=== PATIENT | male | born 1970 | race Caucasian/White ===

== ENCOUNTER 2020-01-17 11:20 | Inpatient (IN) | payer MEDICAID ==
[~2020-01-17] VITALS: Ht 172.7 cm; Wt 111.7 kg
[2020-01-17 13:00] VITALS: BP 124/85
[2020-01-17] MEDS ORDERED: loperamide 2mg capsule PO PRN (13:05)
[2020-01-17] MEDS ORDERED: magnesium hydroxide 30ml (MOM) UD suspension PO PRN (13:05)
--- NOTE | 2020-01-17 14:21 | NUR ---
TF Malnutrition Consults RE "Pt needs a balance diet": ROLA d/w RN who reports likely error. ROLA notified RN that current regular diet order is a balanced diet. Noted pt has multiple food allergies and dietary is aware at this time. Unable to assess malnutrition status at this time as pt just admit and not enough information in EMR. Addendum: 01/17/20 at [address] Amended: Links added.
[2020-01-17] MEDS: OLANZAPINE 5 MG TABLET PO PRN (15:03)
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
[2020-01-17] MEDS ORDERED: NICOTINE POLACRILEX 2 MG LOZENGE BC PRN (15:55)
[2020-01-17] MEDS ORDERED: haloperidol lactate 5mg/ml inj ONE (16:17)
[2020-01-17] MEDS ORDERED: diphenhydrAMINE 50 mg/ml inj ONE (16:18)
[2020-01-17] MEDS ORDERED: LORazepam 2 mg/ml vial ONE (16:19)
--- NOTE | 2020-01-17 16:20 | NUR ---
Geriatrics Physician was called into room because pt was agitated rocking back and forth hitting his head with his hands. Pt was growling. Pt wasn't able to be verbally deescalated. Security was called to assist in keeping pt safe. Received and order from LADARIUS Ramirez for IM Ativan 2mg, Benadryl 50mg and Haldol 10mg. Geriatrics Physician was told by Manj[facility] that pt was saying he "didn't want to live anymore." Will continue to monitor. Vital sign and 1:1 assessment were completed. Will continue to monitor.
[2020-01-17 16:30] VITALS: BP 112/70
--- NOTE | 2020-01-17 17:19 | NUR ---
Requested respiratory consult r/t pt sleeping O2 saturation 89-91. Pt has hx of COPD, asthma, emphysema. Respiratory called and spoke with Brie. states saturation is WNL for pt's med history. Will continue to monitor.
[2020-01-17] MEDS ORDERED: HYDR50TA3 PO (17:28)
[2020-01-17] MEDS ORDERED: UMEC1DIS INH (17:28)
[2020-01-17] MEDS ORDERED: FLO0.4C PO (17:28)
[2020-01-17] MEDS ORDERED: POTA8TAB3 PO (17:28)
[2020-01-17] MEDS ORDERED: DIVA500T4 PO (17:28)
[2020-01-17] MEDS ORDERED: DOXY-1 PO (17:28)
[2020-01-17] MEDS ORDERED: HYDR28.316 TOP (17:28)
[2020-01-17] MEDS ORDERED: LEVE750T6 PO (17:28)
[2020-01-17] MEDS ORDERED: PANT-47 PO (17:28)
[2020-01-17] MEDS ORDERED: ALB0.5UD IH (17:28)
[2020-01-17] MEDS ORDERED: ADV50100 IH (17:28)
[2020-01-17] MEDS ORDERED: CARB200T39 PO (17:28)
[2020-01-17] MEDS ORDERED: LORA10CA PO (17:28)
[2020-01-17] MEDS ORDERED: HYDROCORTISONE 28.35 GM CREAM.GM. RC PRN (17:40)
[2020-01-17 19:27] VITALS: BP 103/67
[2020-01-17] MEDS ORDERED: divalproex sodium 500mg tablet.DR PO SCH (20:00)
[2020-01-17] MEDS: albuterol 2.5 MG/3 ML nebule NEB SCH (20:42)
[2020-01-17] MEDS: budesonide 0.5mg/2ml UD nebule IH SCH (20:42)
[2020-01-17] MEDS: potassium chloride 8mEq ER tablet PO SCH (20:47)
[2020-01-17] MEDS: levetiracetam 250mg tablet PO SCH (20:47)
[2020-01-17] MEDS: DOXYCYCLINE 100MG CAPSULE PO SCH (20:47)
[2020-01-17] MEDS ORDERED: ipratropium/albuterol 3ml nebule IH SCH (21:00)
[2020-01-17] MEDS ORDERED: albuterol 2.5 MG/3 ML nebule NEB SCH (21:00)
[2020-01-17] MEDS: divalproex sodium 500mg tablet.DR PO SCH (21:12)
[2020-01-17] MEDS: pantoprazole 40mg Tablet.DR PO SCH (21:12)
[2020-01-17] MEDS: carBAMazepine 100mg chewable tablet PO SCH (21:16)
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
[2020-01-18] MEDS ORDERED: ipratropium 0.5 MG/2.5ML nebule NEB SCH (08:00)
[2020-01-18] MEDS: budesonide 0.5mg/2ml UD nebule IH SCH ×2 (08:00→19:54)
[2020-01-18 08:15] VITALS: BP 102/75
[2020-01-18] MEDS: ipratropium/albuterol 3ml nebule IH SCH ×3 (09:00→19:55)
[2020-01-18] MEDS: albuterol 2.5 MG/3 ML nebule NEB SCH ×3 (09:00→21:00)
[2020-01-18] MEDS: divalproex sodium 500mg tablet.DR PO SCH (09:07)
[2020-01-18] MEDS: DOXYCYCLINE 100MG CAPSULE PO SCH ×2 (09:07→21:04)
[2020-01-18] MEDS: HYDROchlorothiazide 25mg tablet PO SCH (09:08)
[2020-01-18] MEDS: levetiracetam 250mg tablet PO SCH ×2 (09:08→21:04)
[2020-01-18] MEDS: tamsulosin 0.4mg capsule PO SCH (09:08)
[2020-01-18] MEDS: potassium chloride 8mEq ER tablet PO SCH ×2 (09:08→21:04)
[2020-01-18] MEDS: loratadine 10mg tablet PO SCH (09:08)
[2020-01-18] MEDS: carBAMazepine 100mg chewable tablet PO SCH ×4 (09:14→21:05)
[2020-01-18] MEDS ORDERED: FLU VACC QS2020-21(6MOS UP)/PF 60 MCG/0.5 ML SYRINGE IMVAC ONE (10:00)
[2020-01-18] MEDS ORDERED: LORazepam 2 mg/ml vial ONE (13:20)
[2020-01-18] MEDS ORDERED: haloperidol lactate 5mg/ml inj ONE (13:21)
[2020-01-18] MEDS ORDERED: diphenhydrAMINE 50 mg/ml inj ONE (13:21)
--- NOTE | 2020-01-18 13:30 | NUR ---
NURSING NOTE: Triage Specialist went to administer 1300 medication to patient. Pt was calm c/o of "stomach upset." Retrieved Maalox with medication. On way back in pt came out of his bedroom with wide eyes and was crying, noted clenched fists. Patient terry walked towards the south end exit and attempted to open door. This law writer attempted to redirect him back to his room and reassured pt he was safe. This was not effective. Security was on floor and help assist patienr back to his room. Patient sat on his bed rocking, growling. Patient required administration of emergency medication for the safety of himself and others. The following IM medication were administered Haldol 10mg/Ativan 2mg/Benadryl 50mg.
[2020-01-18] MEDS ORDERED: polyethylene glycol 3350 17gm powd pack PO ONE (13:40)
[2020-01-18 13:50] VITALS: BP 108/73
--- NOTE | 2020-01-18 14:00 | NUR ---
Malnutrition consult: Pt unsure of wt loss though with decreased appetite per malnutrition risk screen with RN. No documented wt hx, current scaled weight is 149% IBW. Pt on a regular diet documented with 25% PO intake first meal with refusal of dinner though did participate in HS snack per RN notes. PO intake up to 100% at breakfast this morning. Pt with no documented decrease in muscle strength or edema. Pt currently lacks a minimum of two criteria for malnutrition. Will continue to follow. Addendum: 01/18/20 at [address] Amended: Links added.
[2020-01-18 14:05] VITALS: BP 110/56
[2020-01-18 14:55] VITALS: BP 102/71
--- NOTE | 2020-01-18 17:05 | NUR ---
Paged respiratory for breathing treatment.
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
--- NOTE | 2020-01-18 19:56 | NUR ---
Patient sleeping after medication administration. Respiratory treatments held at request of RN.
[2020-01-18 20:00] VITALS: BP 87/59
[2020-01-18] MEDS: pantoprazole 40mg Tablet.DR PO SCH (21:04)
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
[2020-01-19 07:26] LABS: CHOL/HDL RATIO 4.5 (0.00-4.99); CHOLESTEROL 175 MG/DL (0-200); HDL CHOLESTEROL 39 MG/DL (35-60); LDL CHOLESTEROL 119 MG/DL (50-100); TRIGLYCERIDES 125 MG/DL (20-135)
[2020-01-19 07:33] VITALS: BP 96/69
[2020-01-19] MEDS: ipratropium/albuterol 3ml nebule IH SCH ×3 (08:25→19:54)
[2020-01-19] MEDS: budesonide 0.5mg/2ml UD nebule IH SCH ×2 (08:25→19:54)
[2020-01-19] MEDS: potassium chloride 8mEq ER tablet PO SCH ×2 (08:50→20:05)
[2020-01-19] MEDS: levetiracetam 250mg tablet PO SCH ×2 (08:50→20:05)
[2020-01-19] MEDS: divalproex sodium 500mg tablet.DR PO SCH ×2 (08:50→20:05)
[2020-01-19] MEDS: DOXYCYCLINE 100MG CAPSULE PO SCH ×2 (08:51→20:05)
[2020-01-19] MEDS: tamsulosin 0.4mg capsule PO SCH (08:51)
[2020-01-19] MEDS: loratadine 10mg tablet PO SCH (08:51)
[2020-01-19] MEDS: carBAMazepine 100mg chewable tablet PO SCH ×4 (08:51→20:05)
[2020-01-19] MEDS: HYDROchlorothiazide 25mg tablet PO SCH (08:52)
[2020-01-19] MEDS: albuterol 2.5 MG/3 ML nebule NEB SCH (09:00)
[2020-01-19] MEDS ORDERED: docusate sod 100mg capsule PO SCH (10:45)
[2020-01-19] MEDS ORDERED: magnesium citrate 296ml oral solution PO ONE (10:45)
[2020-01-19] MEDS: OLANZAPINE 5 MG TABLET PO PRN (11:43)
[2020-01-19] MEDS: LORazepam 1 MG tablet PO PRN ×2 (11:43→20:26)
--- NOTE | 2020-01-19 12:24 | NUR ---
Paged respiratory for PRN breathing treatment. Symptoms: wheezy throughout, SOB with exertion. No distress.
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
--- NOTE | 2020-01-19 15:55 | NUR ---
Patient came out of his room, not as intense, with a blank look in his eyes, heading towards south exit. Again looks like he disassociates from present. Machine Stamper called his name and asked if he was looking for a bag of chips. Pt stated yes and went back to his room when asked. Pt immediately laid down on his bed and closed his eyes. There were no outbursts, yelling or crying during this episode. Addendum: 01/19/20 at 1652 by Terra Gardner RN Patient has childlike characteristics at times.
[2020-01-19] MEDS: albuterol 2.5 MG/3 ML nebule NEB PRN (16:29)
[2020-01-19] MEDS: hydrOXYzine 25 MG tablet PO PRN (17:15)
[2020-01-19 19:23] VITALS: BP 108/65
[2020-01-19] MEDS: pantoprazole 40mg Tablet.DR PO SCH (20:05)
[2020-01-19] MEDS: traZODone 50mg tablet PO PRN (20:26)
--- NOTE | 2020-01-19 23:26 | NUR ---
PCT was responding to pt's call light and found patient on the floor in front of his door. Patient A/O to own ability. VSS; 104/58, 107, 16, 92% RA and denies pain. Patient walked back to bed with staff assistance. Patient reports he had a seizure and fell out of bed. LADARIUS Galeas notified. No N/O at this time.
[2020-01-19 23:34] VITALS: BP 104/58
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
[2020-01-20] MEDS: acetaminophen 325mg tablet PO PRN ×3 (05:37→16:44)
[2020-01-20 07:35] VITALS: BP 105/70
[2020-01-20] MEDS: budesonide 0.5mg/2ml UD nebule IH SCH ×2 (08:21→20:15)
[2020-01-20] MEDS: ipratropium/albuterol 3ml nebule IH SCH ×3 (08:22→20:16)
[2020-01-20 08:30] VITALS: BP 120/70
--- NOTE | 2020-01-20 08:30 | NUR ---
Nursing Note: Pt. has had two seizures that lasted close to one-minute in length each this AM. First seizure was in the Group Room immediately following breakfast. Afterwards pt. was able to independently walk back to his room closely monitored by staff, where he proceeded to lay down in bed and have another seizure. It was reported by Noc shift that pt. had, had a seizure last night as well and fell out of bed. Pt. post-ictal at this time and fatigued, but A&O and V/S are WNL. He denies experiencing any aura leading up to his seizures and does not remember seizures, however pt. was noted by staff to start moving his feet and becoming tense leading up to each seizure. After each seizure, pt. became very fatigued and slept. Pt. is on 3 seizure medications, and has vagal nerve stimulator, Dr. Xiong notified and ordered Valproic Acid, Carbamazepine, and Levetiracetam lab levels, along with a CBC, CMP, magnesium, and phosphate level. Once lab levels obtained, obtain a Telepsych Neuro consult for seizure management. At approximately 0930, following lab draws, pt. was difficult to awake for his AM medications and again appeared to be post-ictal. LADARIUS Ayers notified and Ativan was ordered to be given PO scheduled Q 4 hours, first dose given at this time. Pt. was also placed on a LOS for seizure precautions. Will continue to monitor.
[2020-01-20 09:13] LABS: BASOPHILS % (AUTO) 0.4 % (0-1); EOSINOPHILS # (AUTO) 0.2 X10'3 (0-0.9); EOSINOPHILS % (AUTO) 2.8 % (0-6); HEMATOCRIT 41.6 % (42.0-52.0); HEMOGLOBIN 14.4 g/dl (14.0-17.9); LYMPHOCYTES # (AUTO) 1.9 X10'3 (1.1-4.8); LYMPHOCYTES % (AUTO) 34.4 % (21-51); MEAN CORPUSCULAR HEMOGLOBIN 33.1 PG (27.0-31.0); MEAN CORPUSCULAR HGB CONC 34.5 g/dL (33.0-36.5); MEAN CORPUSCULAR VOLUME 95.8 FL (78-98); MEAN PLATELET VOLUME 7.9 FL (7.4-10.4); MONOCYTES # (AUTO) 0.7 X10'3 (0-0.9); MONOCYTES % (AUTO) 11.8 % (2-12); NEUTROPHILS # (AUTO) 2.8 X10'3 (1.8-7.7); NEUTROPHILS % (AUTO) 50.6 % (42-75); PLATELET COUNT 238 X10'3 (140-440); RED BLOOD COUNT 4.34 X10'6 (4.70-6.10); RED CELL DISTRIBUTION WIDTH 13.6 % (11.5-14.5); WHITE BLOOD COUNT 5.5 X10'3 (4.5-11.0)
[2020-01-20] MEDS: DOXYCYCLINE 100MG CAPSULE PO SCH ×2 (09:26→20:28)
[2020-01-20] MEDS: tamsulosin 0.4mg capsule PO SCH (09:26)
[2020-01-20] MEDS: HYDROchlorothiazide 25mg tablet PO SCH (09:26)
[2020-01-20] MEDS: loratadine 10mg tablet PO SCH (09:26)
[2020-01-20] MEDS: potassium chloride 8mEq ER tablet PO SCH ×2 (09:26→20:28)
[2020-01-20] MEDS: divalproex sodium 500mg tablet.DR PO SCH ×2 (09:26→20:30)
[2020-01-20] MEDS: LORazepam 1 MG tablet PO PRN (09:27)
[2020-01-20] MEDS: levetiracetam 250mg tablet PO SCH ×2 (09:27→19:14)
[2020-01-20] MEDS: carBAMazepine 100mg chewable tablet PO SCH ×4 (09:27→20:27)
[2020-01-20 09:29] LABS: ALANINE AMINOTRANSFERASE 26 U/L (12-78); ALBUMIN 3.2 G/DL (3.4-5.0); ALBUMIN/GLOBULIN RATIO 0.9 (1.1-1.5); ALKALINE PHOSPHATASE 130 IU/L (46-116); ANION GAP 5 (8-16); ASPARTATE AMINO TRANSFERASE 11 U/L (10-37); BILIRUBIN,TOTAL 0.2 MG/DL (0.1-1.0); BLOOD UREA NITROGEN 13 MG/DL (7-18); BUN/CREATININE RATIO 14.6 (5.4-32.0); CALCIUM 9.2 MG/DL (8.5-10.1); CHLORIDE 102 MMOL/L (99-107); CREATININE 0.89 MG/DL (0.60-1.10); GLUCOSE 129 MG/DL (70-104); MAGNESIUM 2.2 MG/DL (1.5-2.4); PHOSPHORUS 3.8 MG/DL (2.3-4.5); SODIUM 140 MMOL/L (135-145); TOTAL CARBON DIOXIDE 32.8 MMOL/L (24-32); TOTAL PROTEIN 6.9 G/DL (6.4-8.2); eGFR > 90 ML/MIN
[2020-01-20 10:15] LABS: CARBAMAZEPINE (TEGRETOL) 9.4 UG/ML (4.0-12.0); VALPROATE 60 UG/ML (50-100)
[2020-01-20] MEDS: LORazepam 1 MG tablet PO SCH ×4 (11:33→23:31)
[2020-01-20] MEDS ORDERED: levetiracetam 250mg tablet PO ONE ×2 (14:35→15:05)
[2020-01-20] MEDS ORDERED: divalproex sodium 500mg tablet.DR PO ONE (14:40)
--- NOTE | 2020-01-20 14:40 | NUR ---
Pt. had a subsequent seizure which again lasted approximately one minute.V/S remain WNL. LADARIUS Ayers notified and obtained orders to administer Keppra 750mg and Depakote 500mg. Valproic acid and carbamazepine levels WNL, Levetiracetam level pending. Will continue to monitor. Addendum: 01/20/20 at 1622 by Arleth Renae RN 250mg of Keppra dropped by patient, additional 250mg one-time order put in.
--- NOTE | 2020-01-20 18:00 | NUR ---
Nursing Progress Note: Legal hold: 5250 Client on involuntary status for GD Report received from nurse with use of SBAR: Ana Lilia Williamson RN Why are they here: Patient is a 49 year old male admitted on a 5150 hold for DTS after voluntarily taking himself to [facility] ED for SI. Patient stated he attempted to kill himself 2 times that morning ( 01/16/20[place] Pt was evaluated by [facility]. Pt stated "he did not jump, but instead he fell to his knees and prayed to his parents." Pt reported his mother on "a long time ago." . Pt also reported his father and he has not dealt with his grief. Pt reported "not feeling comfortable going home because his neighbor bugged his telephone and put cameras on his vents." Pt reported he stopped taking his medications. During MH assessment patient wrapped his bed sheet around his neck in an attempt to choke himself. Assessment What has happened this shift: Received pt. sleeping in bed at the beginning of the shift, he was awoken by staff and attended breakfast in the Group Room. This medical writer introduced self and pt. presented with animation and provided an appropriate greeting. He ate breakfast and then proceeded to have first seizure (see previous note). 1:1 completed at bedside, pt. presents with restlessness, impulsiveness, and is slightly agitated. He denies all MH s/s and states irritably, "I'm tired of all these questions!" Pt's mood continued to be labile throughout the day and he continued to have more seizures, LADARIUS Ayers aware. Pt. was put on LOS for seizure precautions, and was later able to compete some arts and crafts in Group Room although his mood remained labile. Pt. did exhibit some self-harm behavior AEB hitting head on his night stand at one point, however he was able to be redirected by staff and no injuries obtained. Pt. napped intermittently throughout the shift. S/I, H/I: Denies A/VH: Denies Sleep: Pt. reported he slept well, naps intermittently during the shift ADL's: On LOS for seizure precautions Group attendance: no Were meds taken: Yes Any med S/E: Multiple seizures this shift, LADARIUS Ayers is aware Mental Status Exam Appearance: Neat and appropriately dressed Eye contact: Fair Behavior: Cooperative, anxious, slightly agitated, fatigued, guarded, and impulsive Speech: WNL, becomes loud when agitated Mood: Anxious with slight agitation Affect: Labile Thought process: Poverty of thought Thought Content: WNL Cognition: A&O X4 Insight: Poor Judgment: Poor Interventions PRN's used: Tylenol X2 Therapeutic interventions: Introduced self and established rapport, ensured contract for safety, maintained a safe and therapeutic environment, provided clear and simple instructions, , encouraged performance of ADLs/participation on unit, monitored for behavior/seizures and provided intervention as needed (notified MD), and maintained LOS for seizure precautions. Restraints/seclusion/emergency medication: N/A Justification of Continued Inpatient Treatment: Pt. requires interruption of current crisis, medication adjustments and a safe and supportive environment. Addendum: 01/21/20 at 1429 by Arleth Renae RN Legal hold is Voluntary
[2020-01-20] MEDS: OLANZAPINE 5 MG TABLET PO PRN ×2 (18:37→20:28)
[2020-01-20 19:57] VITALS: BP 111/65
[2020-01-20] MEDS: pantoprazole 40mg Tablet.DR PO SCH (20:28)
[2020-01-20] MEDS: olanzapine 10mg tablet PO SCH (21:05)
[2020-01-21] MEDS: LORazepam 1 MG tablet PO SCH ×5 (04:36→20:21)
--- NOTE | 2020-01-21 04:44 | NUR ---
Nursing Progress Note: Legal hold: 5250 Client on involuntary status for DTS. Report received from nurse with use of SBAR: NICOLE Baird. Why are they here: Patient is a 49 year old male admitted on a 5150 hold for DTS after voluntarily taking himself to [facility] ED for SI. Patient stated he attempted to kill himself 2 times that morning ( 01/16/20) [place] Pt was evaluated by [facility]. Pt stated "he did not jump, but instead he fell to his knees and prayed to his parents." Pt reported his mother on "a long time ago." . Pt also reported his father and he has not dealt with his grief. Pt reported "not feeling comfortable going home because his neighbor bugged his telephone and put cameras on his vents." Pt reported he stopped taking his medications. During assessment patient wrapped his bed sheet around his neck in an attempt to choke himself. Medical history includes seizure d/o, HTN, Asthma, kidney stones. Surgical hx, appendectomy, vagal nerve stimulator implant. Pt reports sleep apnea. Assessment What has happened this shift: Patient awake and ambulating the unit at the beginning of shift. Patient appeared agitated with LOS staff as he did not want followed. Patient was provided PRN Zyprexa for his agitation. Shortly after shift change patient reported he felt a seizure coming on and quickly needed assistance to the ground. Post seizure patient was assisted to his bed and provided his Keppra and Depakote. Patient has not had further episodes at this time. Later in the shift patient ambulating and watching TV; he participated in HS snack. Patient often becomes tearful and then angry with himself and requires staff direction to not hit himself. Patient continues Ativan q4h. He is cooperative with medications but reports he feels like he is taking too many and that staff is trying to "drug him up." He is observed sleeping and does not appear to be having difficulty. S/I, H/I: Denies A/VH: Denies Sleep: Refer to sleep assessment ADL's: Independent Group attendance: NA Were meds taken: Yes Any med S/E; None observed or reported Mental Status Exam Appearance: Neat and appropriate. Eye contact: Fair Behavior: Isolative, pleasant and cooperative Speech: Clear, audible, minimal Mood: Labile Affect: Congruent to mood Thought process: Disorganized Thought Content: Doesn't want followed, wants off the unit, feels like he is taking too many medications Cognition: A/Ox4 Insight: Fair Judgment: Poor Interventions PRN's used: Zyprexa Therapeutic interventions: Maintained a safe and therapeutic milieu, assessed patient' LOC, pt wanted to sleep. Encouraged fluids and participation in unit. Restraints/seclusion/emergency medication: NA Justification of Continued Inpatient Treatment: Patient needs interruption of current crisis and medication initiation and adjustment in a safe and therapeutic milieu.
[2020-01-21] MEDS: carBAMazepine 100mg chewable tablet PO SCH ×4 (07:36→20:21)
[2020-01-21] MEDS: potassium chloride 8mEq ER tablet PO SCH ×2 (07:37→20:21)
[2020-01-21] MEDS: levetiracetam 250mg tablet PO SCH ×2 (07:37→20:20)
[2020-01-21] MEDS: tamsulosin 0.4mg capsule PO SCH (07:37)
[2020-01-21] MEDS: divalproex sodium 500mg tablet.DR PO SCH ×2 (07:37→20:20)
[2020-01-21] MEDS: loratadine 10mg tablet PO SCH (07:37)
[2020-01-21] MEDS: DOXYCYCLINE 100MG CAPSULE PO SCH ×2 (07:38→20:20)
[2020-01-21 07:48] VITALS: BP 90/72
[2020-01-21] MEDS: HYDROchlorothiazide 25mg tablet PO SCH (08:00)
[2020-01-21] MEDS: budesonide 0.5mg/2ml UD nebule IH SCH ×2 (08:03→20:49)
[2020-01-21] MEDS: ipratropium/albuterol 3ml nebule IH SCH ×3 (08:04→20:49)
--- NOTE | 2020-01-21 10:00 | NUR ---
Group Therapy: Process Group This Clinicians goals for this process group were as follows: (1) Ask scaling questions about patients current anxiety, depression, and irritability symptoms as a check-in. (2) Share psychoeducation about three rules of brief solution-focused problem-solving: A) Stop doing what clearly isnt working, B) Do something different, C) If the different activity works, then do more of it. If it doesnt work, then go back to principle A). (3) Identify examples of thoughts, activities, and behaviors that people do that no longer work for them, or they create more problems than solutions. (4) Identify examples of thoughts, activities, and behaviors that may help create better emotional/behavioral outcomes and lead to good solutions to problems. (5) Engage patients in discussion of the topics shared within the group milieu. Milieu staff was present during the process group to monitor Patient behaviors. Patient presented as properly oriented to person, and place during the process group. He arrived to the process group approximately 35 minutes after the process group began and left after approximately 10 minutes. This Clinician introduced himself to Patient as he entered the group milieu. He was shadowed by milieu staff. Patient was dressed in nondescript, personal clothing that were appropriate within the milieu. Psychomotor activity was unremarkable. This Clinician was not able to accurately assess Patient's thought content, or process as he only stated his name to this Clinician during the process group. This Clinician did not observe Patient responding to any internal stimuli during session. The rate, latency, and tone of Patients speech was within normal limits. Patient did not sustain regular eye contact with this Clinician. Patient presented in calm euthymic mood, with blunted affect during the process group. Patient presented as cooperative, verbally subdued and nonobtrusive during his brief time within the group milieu. He did not verbally participate during the process group discussion on brief solution-focused, problem-solving thinking strategies. Sridhar Arechiga MA, BROOKE Addendum: 11/30/20 at 1149 by Sridhar STALLINGS Amended: Links added.
[2020-01-21] MEDS: OLANZAPINE 5 MG TABLET PO PRN (10:59)
--- NOTE | 2020-01-21 16:44 | NUR ---
Nursing Progress Note: Legal hold: 5250 Client on involuntary status for GD Report received from nurse with use of SBAR: NICOLE Taylor Why are they here: Patient is a 49 year old male admitted on a 5150 hold for DTS after voluntarily taking himself to [facility] ED for SI. Patient stated he attempted to kill himself 2 times that morning ( 01/16/20) [place]. Pt was evaluated by [facility]. Pt stated "he did not jump, but instead he fell to his knees and prayed to his parents." Pt reported his mother on "a long time ago." . Pt also reported his father and he has not dealt with his grief. Pt reported "not feeling comfortable going home because his neighbor bugged his telephone and put cameras on his vents." Pt reported he stopped taking his medications. During assessment patient wrapped his bed sheet around his neck in an attempt to choke himself. Assessment What has happened this shift: Pt remains on Line Of Sight. Pt slept most of the day, but did get up for meals and go to the dayroom. Pt did have periods during the day when he started punching himself in the head and another time he had the sheet wrapped around his neck, and he was frequently crying during the shift. And required verbal and medication intervention. S/I, H/I: Denies A/VH: Denies Sleep: Pt. reported he slept well, naps intermittently during the shift ADL's: On LOS for seizure precautions Group attendance: no Were meds taken: Yes Any med S/E: Mental Status Exam Appearance: Neat and appropriately dressed Eye contact: Fair Behavior: Cooperative, anxious, slightly agitated, fatigued, guarded, and impulsive Speech: WNL, becomes loud when agitated Mood: Anxious with slight agitation Affect: Labile Thought process: Poverty of thought Thought Content: WNL Cognition: A&O X4 Insight: Poor Judgment: Poor Interventions PRN's used: Therapeutic interventions: Introduced self and established rapport, ensured contract for safety, maintained a safe and therapeutic environment, provided clear and simple instructions, , encouraged performance of ADLs/participation on unit, monitored for behavior/seizures and provided intervention as needed (notified MD), and maintained LOS for seizure precautions. Restraints/seclusion/emergency medication: N/A Justification of Continued Inpatient Treatment: Pt. requires interruption of current crisis, medication adjustments and a safe and supportive environment.
[2020-01-21 19:29] VITALS: BP 129/76
[2020-01-21] MEDS: pantoprazole 40mg Tablet.DR PO SCH (20:21)
[2020-01-21] MEDS: olanzapine 10mg tablet PO SCH (20:21)
[2020-01-21] MEDS: traZODone 50mg tablet PO PRN (20:21)
[2020-01-22] MEDS: LORazepam 1 MG tablet PO SCH ×7 (00:32→23:38)
--- NOTE | 2020-01-22 04:44 | NUR ---
Nursing Progress Note: Legal hold: VOL Client on involuntary status for DTS. Report received from nurse with use of SBAR: NICOLE Baird. Why are they here: Patient is a 49 year old male admitted on a 5150 hold for DTS after voluntarily taking himself to [facility] ED for SI. Patient stated he attempted to kill himself 2 times that morning ( 01/16/20) [place]. Pt was evaluated by [facility]. Pt stated "he did not jump, but instead he fell to his knees and prayed to his parents." Pt reported his mother on "a long time ago." . Pt also reported his father and he has not dealt with his grief. Pt reported "not feeling comfortable going home because his neighbor bugged his telephone and put cameras on his vents." Pt reported he stopped taking his medications. During assessment patient wrapped his bed sheet around his neck in an attempt to choke himself. Medical history includes seizure d/o, HTN, Asthma, kidney stones. Surgical hx, appendectomy, vagal nerve stimulator implant. Pt reports sleep apnea. Assessment What has happened this shift: Patient ambulating the butt with LOS and socializing appropriately. Pleasant and cooperative with most care. Patient asked for clarification why staff has to follow him around and he appeared satisfied when director underwriter sales explained it is a safety precaution for his seizures. No seizures have been witnessed this shift. Patient cooperative with all medication and remains on q4h Ativan. PRN Trazodone was provided upon patient request. Patient was placed on CPAP this shift and was briefly compliant with it but ended up taking it off in the middle of the night. Patient participated in HS snack and watched TV in the community room. He is observed sleeping and does not appear to be having difficulty. S/I, H/I: Denies A/VH: Denies Sleep: Refer to sleep assessment ADL's: Independent Group attendance: NA Were meds taken: Yes Any med S/E; None observed or reported Mental Status Exam Appearance: Neat and appropriate. Eye contact: Fair Behavior: Isolative, pleasant and cooperative Speech: Clear, audible, minimal Mood: Labile Affect: Congruent to mood Thought process: Disorganized Thought Content: Staff following him, snacks Cognition: A/Ox4 Insight: Fair Judgment: Poor Interventions PRN's used: Trazodone Therapeutic interventions: Maintained a safe and therapeutic milieu, assessed patient' LOC, pt wanted to sleep. Encouraged fluids and participation in unit. Restraints/seclusion/emergency medication: NA Justification of Continued Inpatient Treatment: Patient needs interruption of current crisis and medication initiation and adjustment in a safe and therapeutic milieu.
[2020-01-22 07:57] VITALS: BP 103/55
[2020-01-22] MEDS: potassium chloride 8mEq ER tablet PO SCH ×2 (08:03→20:02)
[2020-01-22] MEDS: tamsulosin 0.4mg capsule PO SCH (08:03)
[2020-01-22] MEDS: loratadine 10mg tablet PO SCH (08:03)
[2020-01-22] MEDS: carBAMazepine 100mg chewable tablet PO SCH ×4 (08:04→20:04)
[2020-01-22] MEDS: HYDROchlorothiazide 25mg tablet PO SCH (08:04)
[2020-01-22] MEDS: DOXYCYCLINE 100MG CAPSULE PO SCH ×2 (08:04→20:05)
[2020-01-22] MEDS: divalproex sodium 500mg tablet.DR PO SCH ×2 (08:04→20:04)
[2020-01-22] MEDS: levetiracetam 250mg tablet PO SCH ×2 (08:04→20:03)
[2020-01-22] MEDS: budesonide 0.5mg/2ml UD nebule IH SCH ×2 (08:58→20:27)
[2020-01-22] MEDS: ipratropium/albuterol 3ml nebule IH SCH ×3 (08:59→20:27)
--- NOTE | 2020-01-22 09:26 | NUR ---
Initial: Pt admit DX psychosis per EMR. PO 75-100% avg regular diet meeting needs. Glu 199 w/ A1C 6.0 though hx COPD and receiving corticosteroids at this time. LBM 01/18; daily formed and constipation also documented in EMR likely error. No nutrition concerns at this time. Will continue to monitor. Rec: 1. continue regular diet 2. bowel care per rx 3. consider hyperglycemia protocol if Glu remains elevated on corticosteroids 4. wt per rx Addendum: 01/22/20 at [address] Amended: Links added.
--- NOTE | 2020-01-22 10:00 | NUR ---
Group Therapy: Process Group This Clinicians goals for this process group were as follows: (1) Ask scaling questions about Patients current anxiety, depression, and irritability symptoms as a check-in. (2) Share psychoeducation about the importance of being able to identify regular activities, support people, and thoughts (Anchors) that contribute to mental health well-being and stability. (3) Share psychoeducation about how the gradual removal of said activities, people and behaviors may lead to the erosion of mental well-being and stability. (4) Encourage patients to identify support anchors that they need to maintain in their lives that will promote their mental and emotional well-being. (5) Engage Patients in discussion of the topics shared within the group milieu. Patient identified experiencing the following levels of anxiety, depression, and anger/irritability while present in the group milieu (0-low; 10-High). Anxiety: 11/30 Depression: 10 Anger/irritability: 11/30 Patient presented as properly oriented to person, and place during the process group. Patient was dressed in [facility] scrubs within the milieu. Psychomotor activity was unremarkable. Patient entered the group milieu on three separate occasions. He was accompanied by milieu staff who was assigned to watch Patient. Patient was verbally subdued, unless directly addressed by this Clinician; hence, this Clinician was unable to accurately assess Patient's thought content and thought process. This Clinician did not observe Patient responding to any internal stimuli during session. The rate, latency, and tone of Patients speech was within normal limits. Patient rarely made eye contact with this Clinician. Patient presented in calm euthymic mood, with flat affect during the process group. Patient presented as cooperative, verbally subdued and nonobtrusive within the group milieu. Patient did not participate during the process group discussion on emotional grounding interventions/activities that could be used to support optimal/baseline mental health. Patient did participate in the initial check-in regarding the acuity of his anxiety, depression, and anger/irritability symptoms. Patient reported that his symptoms were all high, "10/10." He added that the feeling in his body is that he wanted to, "Break something." Sridhar Arechiga MA, [employer]AD[employer] Addendum: 01/23/20 at 0814 by Sridhar STALLINGS Amended: Links added.
--- NOTE | 2020-01-22 16:11 | NUR ---
CM-Continuity of Care Presenting Issues: Pt's currently on voluntary stay @ [facility] pending a safe dcp. Interventions: SS met w/pt @ bedside and engaged him in dcp activities. Per discussion pt signed LELA and agreed to allow SS to contact [facility] ([facility]) and coordinate dcp with them. Pt reports that [facility] is his payee and is looking for a new place for him to live. Plan: SS will consult with attending physician re pt's need for a C-Pap & oxygen at home. SS will engage [facility] in dcp activities to facilitate a safe d/c for pt. Madison Benjamin SPOOL SALVAGER Addendum: 01/22/20 at 1628 by Madison Benjamin Amended: Links added.
--- NOTE | 2020-01-22 17:09 | NUR ---
Nursing Progress Note: Legal hold: 5250 Client on involuntary status for GD Report received from nurse with use of SBAR: NICOLE Matthews Why are they here: Patient is a 49 year old male admitted on a 5150 hold for DTS after voluntarily taking himself to [facility] ED for SI. Patient stated he attempted to kill himself 2 times that morning ( 01/16/20) [place] Pt was evaluated by [facility]. Pt stated "he did not jump, but instead he fell to his knees and prayed to his parents." Pt reported his mother on "a long time ago." . Pt also reported his father and he has not dealt with his grief. Pt reported "not feeling comfortable going home because his neighbor bugged his telephone and put cameras on his vents." Pt reported he stopped taking his medications. During assessment patient wrapped his bed sheet around his neck in an attempt to choke himself. Assessment What has happened this shift: Received pt lying awake in bed. Pt remains on line of sight. Pt did not have any seizure episodes today. Pt continues to have periods during the day when he is having a lot of internal stimuli and strife and begins crying and hitting himself in the head. Pt resistive to assessment and seems to be equally as depressed with thoughts of self harm or suicide; though, he would not answer the questions clearly. Pt compliant with medications. Respiratory paged one time to give a breathing treatment at one point this afternoon. S/I, H/I: Denies A/VH: Denies Sleep: Pt. reported he slept well, naps intermittently during the shift ADL's: On LOS for seizure precautions Group attendance: no Were meds taken: Yes Any med S/E: Mental Status Exam Appearance: Neat and appropriately dressed Eye contact: Fair Behavior: Cooperative, anxious, slightly agitated, fatigued, guarded, and impulsive Speech: WNL, becomes loud when agitated Mood: Anxious with slight agitation Affect: Labile Thought process: Poverty of thought Thought Content: WNL Cognition: A&O X4 Insight: Poor Judgment: Poor Interventions PRN's used: Therapeutic interventions: Introduced self and established rapport, ensured contract for safety, maintained a safe and therapeutic environment, provided clear and simple instructions, , encouraged performance of ADLs/participation on unit, monitored for behavior/seizures and provided intervention as needed (notified MD), and maintained LOS for seizure precautions. Restraints/seclusion/emergency medication: N/A Justification of Continued Inpatient Treatment: Pt. requires interruption of current crisis, medication adjustments and a safe and supportive environment.
[2020-01-22] MEDS: OLANZAPINE 5 MG TABLET PO PRN (18:52)
[2020-01-22 19:51] VITALS: BP 121/75
[2020-01-22] MEDS: pantoprazole 40mg Tablet.DR PO SCH (20:02)
[2020-01-22] MEDS: OLANZAPINE 5 MG TABLET PO SCH (20:03)
--- NOTE | 2020-01-22 22:53 | NUR ---
Nursing Progress Note Legal hold: Voluntary Report received from Brie RIVERA with use of SBAR Why are they here: Patient is a 49 year old male admitted on a 5150 hold for DTS after voluntarily taking himself to [facility] ED for SI. Patient stated he attempted to kill himself 2 times that morning ( 01/16/20) [place] Pt was evaluated by [facility]. Pt stated "he did not jump, but instead he fell to his knees and prayed to his parents." Pt reported his mother on "a long time ago." . Pt also reported his father and he has not dealt with his grief. Pt reported "not feeling comfortable going home because his neighbor bugged his telephone and put cameras on his vents." Pt reported he stopped taking his medications. During assessment patient wrapped his bed sheet around his neck in an attempt to choke himself. Assessment What has happened this shift: The patient has been in and out of his room. He is unable to socialize in any meaningful way with peers. He is childlike at times. He has very poor coping skills and throughout the night when he became upset or anxious he was hitting himself and at one point he tried to bite himself. No injuries were noted. The assigned staff had to frequently intervene and redirect his behaviors. He also had a PRN Zyprexa at 1852. He appeared disheveled and his attire had old food on them. When asked he stated that he had two showers during the day. He was very restless and had very poor focus during the assessment and at one point got up and walked down the butt. He was also very fidgety with his hands and feet during the one to one. He stated that he is still having suicidal thoughts. He tearfully added, "There's things I can't get out of my head" but was unable to elaborate at this time. He stated that he has been living in [place] but states he has been homeless and wants to start a new life here in the [place] area. His affect and mood are labile. Impaired concentration and focus. Poor ability to plan for self care once he is discharged. He is impulsive and continues to require one to one staffing for his safety. He was medication compliant. No seizure activity was noted. Insight and judgement are poor. Justification of Continued Inpatient Treatment: The patient continues to endorse suicidal thoughts and is engaging in self harm behaviors on the unit. He has poor ability to adequately plan for food, correction or clothing if he were to be released. He presents as a continued danger to himself as well as being gravely disabled.
[2020-01-23] MEDS: LORazepam 1 MG tablet PO SCH ×6 (03:54→23:13)
[2020-01-23] MEDS: carBAMazepine 100mg chewable tablet PO SCH ×4 (07:50→20:14)
[2020-01-23] MEDS: HYDROchlorothiazide 25mg tablet PO SCH (07:50)
[2020-01-23] MEDS: tamsulosin 0.4mg capsule PO SCH (07:50)
[2020-01-23] MEDS: DOXYCYCLINE 100MG CAPSULE PO SCH ×2 (07:51→20:15)
[2020-01-23] MEDS: potassium chloride 8mEq ER tablet PO SCH ×2 (07:52→20:15)
[2020-01-23] MEDS: loratadine 10mg tablet PO SCH (07:53)
[2020-01-23] MEDS: divalproex sodium 500mg tablet.DR PO SCH ×2 (07:53→20:15)
[2020-01-23 08:00] VITALS: BP 106/57
[2020-01-23] MEDS: budesonide 0.5mg/2ml UD nebule IH SCH ×2 (08:00→21:01)
[2020-01-23] MEDS: ipratropium/albuterol 3ml nebule IH SCH ×3 (08:08→21:02)
--- NOTE | 2020-01-23 10:00 | NUR ---
Group Therapy: Process Group This Clinicians goal for this process group were as follows: (1) Share psychoeducation about core beliefs and how these beliefs shapes how one views reality. (2) Compare and contrast how people with different core beliefs might interpret an identical situation differently. (3) Discuss how changing negative core beliefs to more balanced, helpful, and rational alternatives can lead to improved behaviors and mood. (4) Process patients thoughts and reflections on this topic within the group milieu. Patient presented as properly oriented to person, and place during the process group. Patient was dressed in green hospital scrubs within the milieu. Psychomotor activity was unremarkable. Patient's thought content and process appeared, clear, concrete, coherent, and linear during the brief verbalizations that he offered during the process group. This Clinician did not observe Patient responding to any internal stimuli during session. The rate, latency, and tone of Patients speech was within normal limits. Patients speech was clear, and understandable. Patient rarely made eye contact with this Clinician. Patient presented in calm euthymic mood, with congruent affect during the process group. Patient presented as cooperative, verbally engaged on a few occasions in a fashion that wasn't relevant to the topic being discussed, and nonobtrusive during the brief moments that he spent within the group milieu. Patient entered the group milieu around three times. Usually only staying for approximately five minutes before departing again. He was shadowed by milieu staff. The word, "Popcorn" was used by this Clinician during the process group. At this point Patient stated that he wanted, "Popcorn." In order to maintain rapport with Client, this Clinician referenced something that came up in yesterday's process group in which the word, "Jacuzzi," was mentioned. He said that Patient would like to eat, "Popcorn in a Jacuzzi." Patient jovially said that he wanted to eat, "Popcorn in a jacuzzi, with a pretty woman." Patient final departure during the process group occurred approximately 45 minutes after the beginning of the process group. Sridhar Arechiga MA, [employer] Addendum: 01/23/20 at 1136 by Sridhar STALLINGS Amended: Links added.
[2020-01-23] MEDS: levetiracetam 250mg tablet PO SCH ×2 (10:10→20:15)
--- NOTE | 2020-01-23 15:09 | NUR ---
CM-Continuity of Care Presenting Issues: Pt's on voluntary status as he continues to struggle with sxs of depression which are further exacerbated by pt's medical conditions. Interventions: SS placed a third call to pt's [employer] Administrative Assistant in an attempt to inquire about pt's housing and supportive services in the home, left vm requesting a rt t/c to coordinate services and dcp. SS had t/c with [facility]; per t/c pt does not have a C-pap or oxygen for home use, nor does he have home healthcare services at this time. Plan: SS will continue to monitor pt's progress and engage [facility] & [facility] in dcp activities. Madison Benjamin LCSW Addendum: 01/23/20 at 1528 by Madison Benjamin Amended: Links added.
--- NOTE | 2020-01-23 17:20 | NUR ---
Nursing Progress Note: Legal hold: 5250 Client on involuntary status for GD Report received from nurse with use of SBAR: NICOLE Matthews Why are they here: Patient is a 49 year old male admitted on a 5150 hold for DTS after voluntarily taking himself to [facility] ED for SI. Patient stated he attempted to kill himself 2 times that morning ( 01/16/20) [place] Pt was evaluated by [facility]. Pt stated "he did not jump, but instead he fell to his knees and prayed to his parents." Pt reported his mother on "a long time ago." . Pt also reported his father and he has not dealt with his grief. Pt reported "not feeling comfortable going home because his neighbor bugged his telephone and put cameras on his vents." Pt reported he stopped taking his medications. During assessment patient wrapped his bed sheet around his neck in an attempt to choke himself. Assessment What has happened this shift: Patient was asleep at change of shift. RN went to give patient his medication and patient was snoring and had a hard time waking up. Patient did awaken and RN gave him his medications. Patient got up and went to the group room for breakfast. RN was in the "nurses station" and patient's room alarm went off. Patient has a sitter and did not know what the alarm meant and did not hear patient "fall". Patient found half in and half out of the bathroom on the floor. Patient with "snoring" respirations. Patient wouldn't arouse and RN thought patient might have had a seizure and was postictal. Patient then sits up on his own and gets into his bed. RN believes patient pressed the button in the bathroom and laid himself down on the floor. If patient would have fallen the bathroom door would have flung open and the sitter would have heard the fall and the door hit the wall. After lunch the sitter called the RN into the room because patient had a blanket wrapped around his neck and was pulling it on both ends. Patient was able to breath and talk while "attempting" to strangle himself. RN took the blanket away and told him he wasn't allowed to harm himself. Patient said 'yes I can" . Patient then got up and walked around the unit. Later in the early afternoon RN asked patient if he was feeling like he wanted to hurt himself. Patient started crying and said "I don't know! I have a problem." RN asked patient what is his problem? Patient continued to cry and said "I get hungry very easily and I need a snack," I told him snack was at 3 pm. Patient stopped crying and turned away upset. Patient appears to be exciting attention seeking behavior. Patient is walking around the unit with sitter, steady gait. RN held patient's 1200 Ativan due to patient sound asleep and snoring. S/I, H/I: Denies A/VH: Denies Sleep: Patient naps intermittently during the shift ADL's: On LOS for seizure precautions. Took a shower this evening Group attendance: no Were meds taken: Yes Any med S/E: None noted Mental Status Exam Appearance: Neat and appropriately dressed Eye contact: Fair Behavior: Cooperative, anxious, slightly agitated, impulsive and attention seeking Speech: WNL, becomes loud when agitated Mood: Anxious with slight agitation Affect: Labile Thought process: Poverty of thought Thought Content: basic needs Cognition: A&O X4 Insight: Poor Judgment: Poor Interventions PRN's used: Therapeutic interventions: Introduced self and established rapport, ensured contract for safety, maintained a safe and therapeutic environment, provided clear and simple instructions, , encouraged performance of ADLs/participation on unit, monitored for behavior/seizures and provided intervention as needed (notified MD), and maintained LOS for seizure precautions. Restraints/seclusion/emergency medication: N/A Justification of Continued Inpatient Treatment: Pt. requires interruption of current crisis, medication adjustments and a safe and supportive environment.
[2020-01-23 19:59] VITALS: BP 124/73
[2020-01-23] MEDS: pantoprazole 40mg Tablet.DR PO SCH (20:14)
[2020-01-23] MEDS: OLANZAPINE 5 MG TABLET PO SCH (20:14)
--- NOTE | 2020-01-23 23:52 | NUR ---
Nursing Progress Note: Legal hold: Voluntary Report received from Stevie RIVERA with use of SBAR Why are they here: Patient is a 49 year old male admitted on a 5150 hold for DTS after voluntarily taking himself to [facility] ED for SI. Patient stated he attempted to kill himself 2 times that morning ( 01/16/20) [place]. Pt was evaluated by [facility]. Pt stated "he did not jump, but instead he fell to his knees and prayed to his parents." Pt reported his mother on "a long time ago." . Pt also reported his father and he has not dealt with his grief. Pt reported "not feeling comfortable going home because his neighbor bugged his telephone and put cameras on his vents." Pt reported he stopped taking his medications. During assessment patient wrapped his bed sheet around his neck in an attempt to choke himself. Assessment What has happened this shift: The patient has been on to one with staff at all times for his safety. His mood was fairly labile. He was tearful and sad at the beginning of the shift. The staff assigned to him redirected him to playing various board games which the patient enjoyed and his affect brightened. He was able to follow along in the game. While playing the game he stated, "I feel like I'm going to have a seizure" He was ambulated back to his bed. While laying on his bed he had slight movement in his legs and he stared straight ahead. The episode lasted approximately two minutes. He then awakened and went back to the dining room to continue playing board games. While standing by the dining room door waiting for the evening snack he slumped to the floor and apparently had another two minute episode of seizure like behaviors. He appears disheveled. He is medication compliant and denies medication side effects but does appear sedated after HS medications. He is easily frustrated with redirection from staff. Eye contact is poor. He has not engaged in any self harm behaviors this shift. His insight and judgement are poor. His affect is blunted. Justification of Continued Inpatient Treatment: The patient continues to feel sad and depressed. His moods are very labile. Seizure activity continues.
[2020-01-24] MEDS: hydrOXYzine 25 MG tablet PO PRN ×2 (01:20→20:06)
[2020-01-24] MEDS: traZODone 50mg tablet PO PRN ×2 (01:20→20:06)
[2020-01-24] MEDS: LORazepam 1 MG tablet PO SCH ×4 (03:16→20:09)
[2020-01-24] MEDS: ESCITALOPRAM OXALATE 5 MG TABLET PO SCH (07:52)
[2020-01-24] MEDS: levetiracetam 250mg tablet PO SCH ×2 (07:53→20:08)
[2020-01-24] MEDS: carBAMazepine 100mg chewable tablet PO SCH ×4 (07:53→21:48)
[2020-01-24] MEDS: HYDROchlorothiazide 25mg tablet PO SCH (07:54)
[2020-01-24] MEDS: divalproex sodium 500mg tablet.DR PO SCH ×2 (07:54→20:10)
[2020-01-24] MEDS: loratadine 10mg tablet PO SCH (07:54)
[2020-01-24] MEDS: DOXYCYCLINE 100MG CAPSULE PO SCH ×2 (07:55→20:09)
[2020-01-24] MEDS: potassium chloride 8mEq ER tablet PO SCH ×2 (07:55→20:08)
[2020-01-24] MEDS: tamsulosin 0.4mg capsule PO SCH (07:55)
[2020-01-24 08:00] VITALS: BP 100/70
[2020-01-24] MEDS: ipratropium/albuterol 3ml nebule IH SCH ×3 (08:31→20:17)
[2020-01-24] MEDS: budesonide 0.5mg/2ml UD nebule IH SCH ×2 (08:31→20:16)
--- NOTE | 2020-01-24 10:57 | NUR ---
CM-Contiunity of Care/Placement Presenting Issues: Pt continues to exhibit mood dysregulation requiring continue titration of psychotropic meds. Patient's medical & mental healthcare needs have become too complex for pt to be able to safely manage on his own; pt needs support & supervision in the home to be safe. Interventions: SS had t/c with pt's [facility]'s Nurse Discharge Planner, Phillip Corbett and advocated for placement services for pt as pt is no longer able to safely care for self w/in an independent living situation. Per t/c, Phillip will staff pt's case w/[facility] admin and request for placement services. SS met w/pt, and informed him about possibility of a [facility]'s placement, pt was relieved stating, "oh good, I don't think I can do all this at home alone" pt pointed towards C-pap machine; pt's been needing the c-pap treatment daily since admission. Plan: will continue to provide 1:1 & CM support to facilitate safe d/c from [facility]; will also continue to engage [facility] & [facility] in dcp activities. Madison Benjamin LCSW Addendum: 01/24/20 at 1120 by Madison STALLINGS Amended: Links added.
--- NOTE | 2020-01-24 14:57 | NUR ---
Nursing Progress Note: Legal hold: 5250 Client on involuntary status for GD Report received from nurse with use of SBAR: NICOLE Matthews Why are they here: Patient is a 49 year old male admitted on a 5150 hold for DTS after voluntarily taking himself to [facility] ED for SI. Patient stated he attempted to kill himself 2 times that morning ( 01/16/20) [place]. Pt was evaluated by [facility]. Pt stated "he did not jump, but instead he fell to his knees and prayed to his parents." Pt reported his mother on "a long time ago." . Pt also reported his father and he has not dealt with his grief. Pt reported "not feeling comfortable going home because his neighbor bugged his telephone and put cameras on his vents." Pt reported he stopped taking his medications. During assessment patient wrapped his bed sheet around his neck in an attempt to choke himself. Assessment What has happened this shift: Patient was asleep at change of shift. RN awoke patient and gave him his medication. Patient then got up and walked to the Community Room awaiting breakfast with his sitter. Patient seems a little better today. Patient does get tearful when asking about feeling suicidal. Patient was sitting in the CR late morning and started shaking his upper body for a few seconds and then started snoring. RN went to go access patient and he awoke immediately. He was out for about 1 minute. Patient able to walk back to his room after event. Patient is states he feels the medication is making him very tired. RN advised patient to speak to the doctor about his symptoms and RN would also speak to Cisco. Cisco stated he would change the interval of Ativan from q 4 to q 6 hours. RN has held the 1200 dose x 2 days because patient was sleeping. Patient is talking a little more today and walking with steady gait. S/I, H/I: Denies A/VH: Denies Sleep: Patient naps intermittently during the shift ADL's: On LOS for seizure precautions. Group attendance: no Were meds taken: Yes Any med S/E: sleepy Mental Status Exam Appearance: Neat and appropriately dressed Eye contact: Fair Behavior: Cooperative, anxious, tearful, impulsive and attention seeking Speech: WNL Mood: Anxious at times Affect: Flat Thought process: Poverty of thought Thought Content: basic needs Cognition: A&O X4 Insight: Poor Judgment: Poor Interventions PRN's used: None Therapeutic interventions: Introduced self and established rapport, ensured contract for safety, maintained a safe and therapeutic environment, provided clear and simple instructions, , encouraged performance of ADLs/participation on unit, monitored for behavior/seizures and provided intervention as needed (notified MD), and maintained LOS for seizure precautions. Restraints/seclusion/emergency medication: N/A Justification of Continued Inpatient Treatment: Pt. requires interruption of current crisis, medication adjustments and a safe and supportive environment.
[2020-01-24] MEDS: OLANZAPINE 5 MG TABLET PO PRN (16:42)
--- NOTE | 2020-01-24 16:43 | NUR ---
Agitation: PT seen hitting himself in his room. Offered pt Zyprexa 5mg prn. Pt refusing it. Helped pt sit up and pt tearful. After some encouragement pt take the medication. Will continue to monitor.
[2020-01-24 19:00] VITALS: BP 121/92
[2020-01-24] MEDS: OLANZAPINE 5 MG TABLET PO SCH (20:07)
[2020-01-24] MEDS: pantoprazole 40mg Tablet.DR PO SCH (20:09)
--- NOTE | 2020-01-24 22:08 | NUR ---
Patient was put on CPAP. He self removed. Patient is on 1:1 observation with a tech watching for any sign of impending or present seizure activity.
[2020-01-25] MEDS: LORazepam 1 MG tablet PO SCH ×4 (02:00→19:31)
--- NOTE | 2020-01-25 02:19 | NUR ---
Nursing Progress Note: Legal hold: 5250 Client on involuntary status for GD Report received from NICOLE Casanova with use of SBAR. Why are they here: Patient is a 49 year old male admitted on a 5150 hold for DTS after voluntarily taking himself to [facility] ED for SI. Patient stated he attempted to kill himself 2 times that morning ( 01/16/20) [place] Pt was evaluated by [facility]. Pt stated "he did not jump, but instead he fell to his knees and prayed to his parents." Pt reported his mother on "a long time ago." . Pt also reported his father and he has not dealt with his grief. Pt reported "not feeling comfortable going home because his neighbor bugged his telephone and put cameras on his vents." Pt reported he stopped taking his medications. During assessment patient wrapped his bed sheet around his neck in an attempt to choke himself. Assessment What has happened this shift: Patient is ambulating the hallways following shift change. He is labile, he makes small verbal outbursts. This medical writer was able to approach the patient and calm him somewhat with distraction. The patient then accepted a snack. He returned to his room. Patient requested something for anxiety and sleep. Atarax and Trazadone were given. The patient requested and was given his CPAP. Patient denies S/I, H/I, or any hallucinations. Patient calms after redirection and med's for anxiety. Patient sleeps but continues to awaken and remove his CPAP. The machine was returned to standby mode. Patient has a 1 to 1 sitter for direct observation secondary to patient having recent seizure activity. S/I, H/I: Denies. A/VH: Denies. Looks to be responding to internal stimuli on occasion. Sleep: Sleeps well, will tally at 0500 hours. ADL's: On LOS for seizure precautions. 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 Were meds taken: Yes, medication compliant. Any med S/E: Atarax, Trazadone. Mental Status Exam Appearance: Clean appropriate dress. Eye contact: Fair Behavior: Labile, then calm. Speech: Loud at shift change. Later he exhibits regular rate, rhythm, and tone. Mood: Labile followed by calming. Affect: Flat Thought process: Poverty of thought. Thought Content: Needing basic needs. Cognition: A&O X4. Insight: Poor. Judgment: Poor. Interventions PRN's used: None. Therapeutic interventions: Introduced self and established rapport, ensured contract for safety, maintained a safe and therapeutic environment, provided clear and simple instructions, , encouraged performance of ADLs/participation on unit, monitored for behavior/seizures and provided intervention as needed (notified MD), and maintained LOS for seizure precautions. Restraints/seclusion/emergency medication: N/A Justification of Continued Inpatient Treatment: Pt. requires interruption of current crisis, medication adjustments and a safe and supportive environment.
[2020-01-25] MEDS: tamsulosin 0.4mg capsule PO SCH (07:53)
[2020-01-25] MEDS: HYDROchlorothiazide 25mg tablet PO SCH (07:53)
[2020-01-25] MEDS: potassium chloride 8mEq ER tablet PO SCH ×2 (07:53→20:11)
[2020-01-25] MEDS: ESCITALOPRAM OXALATE 5 MG TABLET PO SCH (07:53)
[2020-01-25] MEDS: DOXYCYCLINE 100MG CAPSULE PO SCH (07:53)
[2020-01-25] MEDS: carBAMazepine 100mg chewable tablet PO SCH ×4 (07:54→20:11)
[2020-01-25] MEDS: loratadine 10mg tablet PO SCH (07:54)
[2020-01-25] MEDS: levetiracetam 250mg tablet PO SCH ×2 (07:54→20:10)
[2020-01-25] MEDS: divalproex sodium 500mg tablet.DR PO SCH ×2 (07:55→20:11)
[2020-01-25 08:00] VITALS: BP 112/76
[2020-01-25] MEDS: ipratropium/albuterol 3ml nebule IH SCH ×3 (08:29→20:35)
[2020-01-25] MEDS: budesonide 0.5mg/2ml UD nebule IH SCH ×2 (08:29→20:35)
--- NOTE | 2020-01-25 14:42 | NUR ---
Fall: Pt was reaching to close his door and missed the handle and fell down landing on his R knee. Helped pt up to his bed. While writing occurrence report, pt back up ambulating without difficulty.
--- NOTE | 2020-01-25 15:44 | NUR ---
Fall: Patient in the group room and using arm of chair to help himself up. Patient then went slowly to the ground on his buttocks. No injury noted. Patient tearful sitting in a chair in the CR and doesn't understand why he is falling. Ativan was decreased today. Patient now ambulatory, steady gait back to his bed.
--- NOTE | 2020-01-25 15:47 | NUR ---
Nursing Progress Note: Legal hold: 5250 Client on involuntary status for GD Report received from nurse with use of SBAR: NICOLE Matthews Why are they here: Patient is a 49 year old male admitted on a 5150 hold for DTS after voluntarily taking himself to [facility] ED for SI. Patient stated he attempted to kill himself 2 times that morning ( 01/16/20) [place] Pt was evaluated by [facility]. Pt stated "he did not jump, but instead he fell to his knees and prayed to his parents." Pt reported his mother on "a long time ago." . Pt also reported his father and he has not dealt with his grief. Pt reported "not feeling comfortable going home because his neighbor bugged his telephone and put cameras on his vents." Pt reported he stopped taking his medications. During assessment patient wrapped his bed sheet around his neck in an attempt to choke himself. Assessment What has happened this shift: Patient was asleep at change of shift. RN awoke patient and gave him his medication. Patient then got up and walked to the Community Room awaiting breakfast with his sitter. Patient was calm and cooperative and chatted with RN. Patient took a couple of naps today and when patient was coming out of his room he leaned on his door handle and went slowly down on his right knee. +edema to knee. An hour later patient was in the CR and patient and getting out of his chair. Patient was leaning on the arm of the chair and slowly went down to the floor on his buttocks. No injury or pain with this fall. Patient was tearful and wondering why he is falling. Patient believes he is too medicated. Cisco Decreased patient's Ativan today. Patient is walking around the department no distress. Patient is tearful when discussing if patient is suicidal. Patient does not answer the question, he just cries. Patient was hitting himself in the head this morning and staff could not find the protective helmet he was wearing yesterday and last night. S/I, H/I: Denies but cries A/VH: Denies Sleep: Patient naps intermittently during the shift ADL's: On LOS for seizure precautions. Group attendance: no groups today Were meds taken: Yes Any med S/E: sleepy Mental Status Exam Appearance: Neat and appropriately dressed Eye contact: Fair Behavior: Cooperative, anxious, tearful, impulsive and attention seeking Speech: WNL Mood: Anxious at times Affect: Flat Thought process: Poverty of thought Thought Content: basic needs Cognition: A&O X4 Insight: Poor Judgment: Poor Interventions PRN's used: None Therapeutic interventions: Introduced self and established rapport, ensured contract for safety, maintained a safe and therapeutic environment, provided clear and simple instructions, , encouraged performance of ADLs/participation on unit, monitored for behavior/seizures and provided intervention as needed (notified MD), and maintained LOS for seizure precautions. Restraints/seclusion/emergency medication: N/A Justification of Continued Inpatient Treatment: Pt. requires interruption of current crisis, medication adjustments and a safe and supportive environment.
[2020-01-25 19:00] VITALS: BP 128/76
--- NOTE | 2020-01-25 19:00 | NUR ---
Patient is line of sight with a Tech. Patient ambulated into hallway. He gripped the handrail and became non verbal. Patients body stiffened, patient exhibited petit mall type gaze, he was gently lowered to the floor where he began exhibiting focal activity with both arms. Seizure resolved after 30 seconds. Patient was assisted back to bed. A postictal state lasted for about two minutes. No incontinency, no bite pike.
[2020-01-25] MEDS: OLANZAPINE 5 MG TABLET PO SCH (20:10)
[2020-01-25] MEDS: traZODone 50mg tablet PO PRN (20:11)
[2020-01-25] MEDS: pantoprazole 40mg Tablet.DR PO SCH (20:11)
[2020-01-25] MEDS: hydrOXYzine 25 MG tablet PO PRN (20:11)
[2020-01-26] MEDS: LORazepam 1 MG tablet PO SCH ×4 (01:34→20:46)
--- NOTE | 2020-01-26 01:36 | NUR ---
Nursing Progress Note: Legal hold: 5250 Client on involuntary status for GD Report received from NICOLE Casanova with use of SBAR. Why are they here: Patient is a 49 year old male admitted on a 5150 hold for DTS after voluntarily taking himself to [facility] ED for SI. Patient stated he attempted to kill himself 2 times that morning ( 01/16/20[place] Pt was evaluated by [facility]. Pt stated "he did not jump, but instead he fell to his knees and prayed to his parents." Pt reported his mother on "a long time ago." . Pt also reported his father and he has not dealt with his grief. Pt reported "not feeling comfortable going home because his neighbor bugged his telephone and put cameras on his vents." Pt reported he stopped taking his medications. During assessment patient wrapped his bed sheet around his neck in an attempt to choke himself. Assessment What has happened this shift: Patient is noted to ambulate hallways and enter and exit his own room multiple times. A sitter is present 1:1 as patient is reported to have frequent seizure type activity recently. The patient is labile, he needs frequent redirection. Patient looks to be responding to internal stimuli. On one occasion the patient grabs a hallway railing, his industrial electrical technician tightened. Patient presents with a blank stare. His body stiffened, he was lowered to the floor. A corneal reflex is present. Patient eyes deviate to the right side. Initially this activity looked like a petit mal activity, it then progressed to tonic clonic activity with both arms for less than 20 seconds. No bite pike were present, no postictal state following the seizure. There was no urine incontinence. Patient did exhibit very emotional behavior with mumbling and crying throughout the shift. Patient was finally given Restoral 15 mg PO and he maintained sleep as of this writing. S/I, H/I: Denies. A/VH: Denies. Looks to be responding to internal stimuli on occasion. Sleep: Sleeps well, will tally at 0500 hours. ADL's: On LOS for seizure precautions. 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 Were meds taken: Yes, medication compliant. Any med S/E: None noted or observed. Mental Status Exam Appearance: Clean appropriate dress. Eye contact: Fair Behavior: Crying, anxious, responding to internal stimuli. Speech: Quiet, mumbling, irregular at times. Mood: Sad, labile at times. Affect: Flat Thought process: Poverty of thought. Thought Content: Cognition: A&O X4. Insight: Poor. Judgment: Poor. Interventions PRN's used: Restoril. . Therapeutic interventions: Introduced self and established rapport, ensured contract for safety, maintained a safe and therapeutic environment, provided clear and simple instructions, , encouraged performance of ADLs/participation on unit, monitored for behavior/seizures and provided intervention as needed (notified MD), and maintained LOS for seizure precautions. Restraints/seclusion/emergency medication: N/A Justification of Continued Inpatient Treatment: Pt. requires interruption of current crisis, medication adjustments and a safe and supportive environment.
[2020-01-26] MEDS: divalproex sodium 500mg tablet.DR PO SCH ×2 (07:23→20:46)
[2020-01-26] MEDS: HYDROchlorothiazide 25mg tablet PO SCH (07:23)
[2020-01-26] MEDS: acetaminophen 325mg tablet PO PRN (07:24)
[2020-01-26] MEDS: potassium chloride 8mEq ER tablet PO SCH ×2 (07:24→20:46)
[2020-01-26] MEDS: ESCITALOPRAM OXALATE 5 MG TABLET PO SCH (07:25)
[2020-01-26] MEDS: tamsulosin 0.4mg capsule PO SCH (07:26)
[2020-01-26] MEDS: levetiracetam 250mg tablet PO SCH ×2 (07:26→20:46)
[2020-01-26] MEDS: carBAMazepine 100mg chewable tablet PO SCH ×4 (07:26→20:46)
[2020-01-26 08:00] VITALS: BP_SYST 117; BP_SYST 85; BP_DIAS 51; BP_DIAS 67
[2020-01-26] MEDS: loratadine 10mg tablet PO SCH (08:30)
[2020-01-26] MEDS: ipratropium/albuterol 3ml nebule IH SCH ×3 (09:45→20:49)
[2020-01-26] MEDS: budesonide 0.5mg/2ml UD nebule IH SCH ×2 (09:45→20:49)
--- NOTE | 2020-01-26 14:40 | NUR ---
Neuro consult: Started process for neuro consult. Neurologist spoke with LADARIUS Ayers. Neuro cart taken away by ER for emergency
[2020-01-26] MEDS: OLANZAPINE 5 MG TABLET PO PRN (16:33)
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
[2020-01-26 19:26] VITALS: BP 102/53
[2020-01-26] MEDS: OLANZAPINE 5 MG TABLET PO SCH (20:45)
[2020-01-26] MEDS: pantoprazole 40mg Tablet.DR PO SCH (20:46)
[2020-01-26] MEDS ORDERED: temazepam 15mg capsule PO ONE ×2 (23:05→23:15)
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
[2020-01-27] MEDS: LORazepam 1 MG tablet PO SCH ×4 (02:00→20:19)
[2020-01-27] MEDS: acetaminophen 325mg tablet PO PRN (06:16)
[2020-01-27 07:15] LABS: CARBAMAZEPINE (TEGRETOL) 10.8 UG/ML (4.0-12.0)
[2020-01-27] MEDS: ESCITALOPRAM OXALATE 5 MG TABLET PO SCH (07:53)
[2020-01-27] MEDS: carBAMazepine 100mg chewable tablet PO SCH ×4 (07:54→20:18)
[2020-01-27] MEDS: levetiracetam 250mg tablet PO SCH ×2 (07:55→20:19)
[2020-01-27] MEDS: HYDROchlorothiazide 25mg tablet PO SCH (07:55)
[2020-01-27] MEDS: divalproex sodium 500mg tablet.DR PO SCH ×2 (07:56→20:17)
[2020-01-27] MEDS: loratadine 10mg tablet PO SCH (07:57)
[2020-01-27] MEDS: tamsulosin 0.4mg capsule PO SCH (07:57)
[2020-01-27] MEDS: potassium chloride 8mEq ER tablet PO SCH ×2 (07:57→20:19)
[2020-01-27 08:31] VITALS: BP 109/75
[2020-01-27] MEDS: ipratropium/albuterol 3ml nebule IH SCH ×3 (08:33→21:00)
[2020-01-27] MEDS: budesonide 0.5mg/2ml UD nebule IH SCH ×2 (08:33→20:00)
--- NOTE | 2020-01-27 11:35 | NUR ---
Pt. reportedly rolled out of bed per tech who is on LOS with pt. who witnessed it. Pt. did not hit his head.
--- NOTE | 2020-01-27 12:55 | NUR ---
Pt. had seizure during lunch. Seizure lasted approx 5 minutes. Pt. showed no post-ictal phase, pt. became quiet and unresponsive. Pt.'s VSS (see EMR). After seizure pt. proceeded to finish eating his lunch.
[2020-01-27 13:00] VITALS: BP 106/67
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
[2020-01-27 19:28] VITALS: BP 118/73
[2020-01-27] MEDS: OLANZAPINE 5 MG TABLET PO SCH (20:17)
[2020-01-27] MEDS: pantoprazole 40mg Tablet.DR PO SCH (20:19)
[2020-01-27] MEDS ORDERED: ondansetron 4mg rapidly disintigrating tab PO ONE (20:35)
[2020-01-27] MEDS: traZODone 50mg tablet PO PRN (22:00)
[2020-01-27] MEDS: temazepam 15mg capsule PO PRN (22:00)
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
[2020-01-28] MEDS: LORazepam 1 MG tablet PO SCH ×4 (02:00→20:34)
[2020-01-28] MEDS: acetaminophen 325mg tablet PO PRN (03:25)
[2020-01-28 08:00] VITALS: BP 119/69
[2020-01-28] MEDS: potassium chloride 8mEq ER tablet PO SCH ×2 (08:09→20:33)
[2020-01-28] MEDS: divalproex sodium 500mg tablet.DR PO SCH ×3 (08:09→20:34)
[2020-01-28] MEDS: tamsulosin 0.4mg capsule PO SCH (08:09)
[2020-01-28] MEDS: carBAMazepine 100mg chewable tablet PO SCH ×4 (08:10→20:34)
[2020-01-28] MEDS: loratadine 10mg tablet PO SCH (08:10)
[2020-01-28] MEDS: levetiracetam 250mg tablet PO SCH ×2 (08:10→20:34)
[2020-01-28] MEDS: HYDROchlorothiazide 25mg tablet PO SCH (08:10)
[2020-01-28] MEDS: ESCITALOPRAM OXALATE 5 MG TABLET PO SCH (08:11)
[2020-01-28] MEDS: budesonide 0.5mg/2ml UD nebule IH SCH ×2 (09:55→20:50)
[2020-01-28] MEDS: ipratropium/albuterol 3ml nebule IH SCH ×3 (09:55→20:50)
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
--- NOTE | 2020-01-28 16:53 | NUR ---
CM-DCP Presenting Issues: Per consultation w/attending PA, pt is at baseline-psychiatrically, is on voluntary stay, needs to d/c as pt no longer requires acute psychiatric care. Interventions: SS had t/c w/pt's [facility] Associate Store Director re/placement, per t/c [facility] still have not found placement for pt and referred SS to Pt's [facility] team's coordinator-Rocky at [phone], SS had t/c w/pt's [facility] medical records coordinator, per t/c they are looking into sober living homes for pt but does not have anything yet. SS had t/c w/[facility] & inquired about possible Admin Days auth, per t/c SS will need to contact [facility]'s Quality Management Division at [phone]. SS also inquired about [facility] however, as a result of pt's sleep apnea pt is not a good candidate for the [facility], other options include the [facility]. Plan: SS to consult w/attending PA to determine if pt can be d/c to the [facility]. Madison Benjamin LCSW Addendum: 01/28/20 at 1707 by Madison Benjamin SS Amended: Links added.
[2020-01-28 19:32] VITALS: BP 136/86
[2020-01-28] MEDS: OLANZAPINE 5 MG TABLET PO SCH (20:34)
[2020-01-28] MEDS: pantoprazole 40mg Tablet.DR PO SCH (20:34)
[2020-01-28] MEDS: temazepam 15mg capsule PO PRN (22:12)
[2020-01-28] MEDS: traZODone 50mg tablet PO PRN (22:12)
[2020-01-29] MEDS: LORazepam 1 MG tablet PO SCH ×4 (02:00→19:02)
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
[2020-01-29 08:00] VITALS: BP 103/56
[2020-01-29] MEDS: potassium chloride 8mEq ER tablet PO SCH ×2 (08:09→19:02)
[2020-01-29] MEDS: carBAMazepine 100mg chewable tablet PO SCH ×4 (08:09→20:36)
[2020-01-29] MEDS: ESCITALOPRAM OXALATE 5 MG TABLET PO SCH (08:09)
[2020-01-29] MEDS: tamsulosin 0.4mg capsule PO SCH (08:09)
[2020-01-29] MEDS: loratadine 10mg tablet PO SCH (08:10)
[2020-01-29] MEDS: HYDROchlorothiazide 25mg tablet PO SCH (08:10)
[2020-01-29] MEDS: divalproex sodium 500mg tablet.DR PO SCH ×3 (08:10→20:36)
[2020-01-29] MEDS: levetiracetam 250mg tablet PO SCH ×2 (08:10→19:03)
[2020-01-29] MEDS: budesonide 0.5mg/2ml UD nebule IH SCH ×2 (09:11→20:21)
[2020-01-29] MEDS: ipratropium/albuterol 3ml nebule IH SCH ×3 (09:11→20:21)
[2020-01-29 09:18] VITALS: BP 103/56
--- NOTE | 2020-01-29 10:00 | NUR ---
Group Therapy: Process Group This Clinicians goal for this process group were as follows: (1) Introduce and provide psychoeducation on Syed ABC method. (2) Practice working through Syed ABC method using examples provided by this Clinician. (3) Encourage patients to process some of their own reoccurring situations utilizing Syed ABC methodology. (4) Process patients thoughts and reflections on this topic within the group milieu. Milieu staff were present in group to monitor Patient behaviors. Patient identified experiencing the following levels of anxiety, depression, and anger/irritability while present in the group milieu (0-low; 10-High). Anxiety: 0/10 Depression: 0/10 Anger/irritability: 0/10 Patient presented as properly oriented to person, place, and situation during the process group. Patient was dressed in green hospital scrubs within the milieu. Patient presented with minor psychomotor agitation on occasion, AEB tapping his feet on the floor, getting up from his chair, and moving around the process group room on occasion, etc.. Patient's thought content was clear, and concrete. Patient's thought process was clear, simple, coherent, and linear. This Clinician did not observe Patient responding to any internal stimuli during session. The rate, latency, and tone of Patients speech was within normal limits. Clients speech was clear, and understandable. Patient maintained intermittent eye contact with this Clinician. Patient presented in calm mood that varied between euthymic and dysphoric--sobbing--with labile affect. Patient presented as open, cooperative, verbally engaged, and only minimally obtrusive within the group milieu. Per this Clinician's impression, Patient frequently offered one-word answers, or simply-phrased answers to questions during the process group. In this context, Patient was able to identify emotional consequences, or feelings, and beliefs that one could entertain that could either decrease, or increase unwanted emotional consequences. This Clinician occasionally had to provide minor verbal prompts to encourage Patient to calm down, as he sometimes would interrupt this Clinician, or his peers, while they were talking. Sridhar Arechiga MA, TRAFFIC SAFETY ADMINISTRATOR Addendum: 01/29/20 at 1143 by Sridhar STALLINGS Amended: Links added.
[2020-01-29] MEDS: mag hydrox/Alum hydrox/simeth 30ml oral suspension PO PRN (10:32)
--- NOTE | 2020-01-29 12:12 | NUR ---
RH-Bfymxrgmh-Qzztfxirzr Presenting Issues: Per attending PA pt is psychiatrically stable and needs a dcp to facilitate his d/c from [facility]. Interventions: SS had t/c with pt's [facility] Web Content Writer, joyce chavez requesting r/t t/c to provide placement updates. SS also had t/c with pt's [facility]'s WRAP Relocation Specialist, Rocky @ [phone]. Per t/c Rocky informed SS that the WRAP team was looking for sober living homes for pt. SS provided psychoed re pt's needs and how he no longer is able to safely live alone due to his medical conditions and pt's inability to manage his meds daily. Per discussion, Rocky will seek a Level 2 placement auth from [facility]. SS consulted /[facility] Director re need for Admin Days as pt will need to stay on after deemed d/c ready. Plan: will continue to engage [facility] in placement & dcp activities. Madison Benjamin LCSW Addendum: 01/29/20 at 1227 by Madison Benjamin Amended: Links added.
--- NOTE | 2020-01-29 12:52 | NUR ---
Reassessment: Pt with slightly fluctuating PO intake though mostly averaging 75-100% on regular diet, now to receive double protein TID per diet order. LB 01/28. No further nutrition intervention warranted at this time. Will continue to follow. Rec: 1. continue regular diet; double protein TID per diet order 2. bowel care per rx 3. consider hyperglycemia protocol if Glu remains elevated on corticosteroids 4. wt per rx Addendum: 01/29/20 at [address] Amended: Links added.
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
[2020-01-29 20:00] VITALS: BP 113/60
[2020-01-29] MEDS: OLANZAPINE 5 MG TABLET PO SCH (20:35)
[2020-01-29] MEDS: traZODone 50mg tablet PO PRN (20:36)
[2020-01-29] MEDS: pantoprazole 40mg Tablet.DR PO SCH (20:36)
[2020-01-29] MEDS: temazepam 15mg capsule PO PRN (20:36)
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
[2020-01-30] MEDS: LORazepam 1 MG tablet PO SCH ×4 (02:00→20:09)
[2020-01-30] MEDS: acetaminophen 325mg tablet PO PRN ×2 (06:39→12:08)
[2020-01-30] MEDS: ESCITALOPRAM OXALATE 5 MG TABLET PO SCH (07:39)
[2020-01-30] MEDS: potassium chloride 8mEq ER tablet PO SCH ×2 (07:39→20:08)
[2020-01-30] MEDS: carBAMazepine 100mg chewable tablet PO SCH ×4 (07:39→20:09)
[2020-01-30] MEDS: HYDROchlorothiazide 25mg tablet PO SCH (07:39)
[2020-01-30] MEDS: loratadine 10mg tablet PO SCH (07:40)
[2020-01-30] MEDS: levetiracetam 250mg tablet PO SCH ×2 (07:40→20:10)
[2020-01-30] MEDS: tamsulosin 0.4mg capsule PO SCH (07:40)
[2020-01-30] MEDS: divalproex sodium 500mg tablet.DR PO SCH ×3 (07:40→20:09)
[2020-01-30] MEDS: budesonide 0.5mg/2ml UD nebule IH SCH ×2 (08:00→20:50)
[2020-01-30 08:12] VITALS: BP 110/70
[2020-01-30] MEDS: ipratropium/albuterol 3ml nebule IH SCH ×3 (09:00→20:50)
[2020-01-30] MEDS ORDERED: tuberculin, purif. prot. deriv. 5 units/0.1ml ID ONE (12:50)
--- NOTE | 2020-01-30 16:05 | NUR ---
CM-Placement Presenting Issues: Pt has medical, developmental and mental health issues which impairs his ability to safely care for himself in an independent living situation. Pt's [facility]'s support team are exploring options for snf/housing with support to facilitate a safe discharge. [facility] have looked into sober living facilities in [place] however, none provides in home support & supervision around meds, they've also looked in the [place] area but have not found a place that has overnight staffing. Interventions: SS had t/c w/[facility], per t/c SS received a listing of licensed care homes in [facility] and forwarded it to pt's [facility]'s WRAP CM-Rocky Hernandez, SS also had t/c with Rocky and recommends that he & his team contact the homes on the list to see if they can accommodate pt. Plan: SS will continue to engage [facility] & [facility]'s team in placement &dcp activities. Madison Benjamin LCSW Addendum: 01/30/20 at 1616 by Madison STALLINGS Amended: Links added.
[2020-01-30] MEDS: hydrOXYzine 25 MG tablet PO PRN (16:58)
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
[2020-01-30 20:00] VITALS: BP 123/82
[2020-01-30] MEDS: temazepam 15mg capsule PO PRN (20:08)
[2020-01-30] MEDS: OLANZAPINE 5 MG TABLET PO SCH (20:09)
[2020-01-30] MEDS: pantoprazole 40mg Tablet.DR PO SCH (20:09)
[2020-01-30] MEDS: traZODone 50mg tablet PO PRN (20:09)
[2020-01-30 21:19] VITALS: BP 123/82
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
[2020-01-31] MEDS: LORazepam 1 MG tablet PO SCH ×4 (02:00→20:09)
[2020-01-31] MEDS: potassium chloride 8mEq ER tablet PO SCH ×2 (07:28→20:09)
[2020-01-31] MEDS: tamsulosin 0.4mg capsule PO SCH (07:28)
[2020-01-31] MEDS: divalproex sodium 500mg tablet.DR PO SCH ×3 (07:28→20:07)
[2020-01-31] MEDS: loratadine 10mg tablet PO SCH (07:28)
[2020-01-31] MEDS: levetiracetam 250mg tablet PO SCH ×2 (07:29→20:06)
[2020-01-31] MEDS: carBAMazepine 100mg chewable tablet PO SCH ×4 (07:29→20:10)
[2020-01-31] MEDS: ESCITALOPRAM OXALATE 5 MG TABLET PO SCH (07:29)
[2020-01-31] MEDS: HYDROchlorothiazide 25mg tablet PO SCH (07:30)
[2020-01-31 08:00] VITALS: BP 120/80
[2020-01-31] MEDS: budesonide 0.5mg/2ml UD nebule IH SCH ×2 (10:27→21:30)
[2020-01-31] MEDS: ipratropium/albuterol 3ml nebule IH SCH ×3 (10:27→21:30)
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
[2020-01-31 18:00] VITALS: BP 110/67
[2020-01-31 19:36] VITALS: BP 122/79
[2020-01-31] MEDS: pantoprazole 40mg Tablet.DR PO SCH (20:07)
[2020-01-31] MEDS: OLANZAPINE 5 MG TABLET PO SCH (20:08)
[2020-01-31] MEDS: temazepam 15mg capsule PO PRN (22:00)
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
[2020-02-01] MEDS: albuterol 2.5 MG/3 ML nebule NEB PRN ×2 (03:17→13:14)
[2020-02-01] MEDS: LORazepam 1 MG tablet PO SCH ×4 (05:07→20:04)
[2020-02-01] MEDS: acetaminophen 325mg tablet PO PRN (05:08)
[2020-02-01] MEDS: ESCITALOPRAM OXALATE 5 MG TABLET PO SCH (07:34)
[2020-02-01] MEDS: loratadine 10mg tablet PO SCH (07:35)
[2020-02-01] MEDS: levetiracetam 250mg tablet PO SCH ×2 (07:35→20:01)
[2020-02-01] MEDS: carBAMazepine 100mg chewable tablet PO SCH ×4 (07:35→20:05)
[2020-02-01] MEDS: HYDROchlorothiazide 25mg tablet PO SCH (07:35)
[2020-02-01] MEDS: potassium chloride 8mEq ER tablet PO SCH ×2 (07:35→20:02)
[2020-02-01] MEDS: tamsulosin 0.4mg capsule PO SCH (07:36)
[2020-02-01] MEDS: divalproex sodium 500mg tablet.DR PO SCH ×3 (07:36→20:00)
[2020-02-01 07:42] VITALS: BP 101/70
[2020-02-01] MEDS: budesonide 0.5mg/2ml UD nebule IH SCH ×2 (08:00→22:32)
[2020-02-01] MEDS: ipratropium/albuterol 3ml nebule IH SCH ×3 (09:00→22:32)
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
[2020-02-01 19:31] VITALS: BP 107/72
[2020-02-01] MEDS: OLANZAPINE 5 MG TABLET PO SCH (20:03)
[2020-02-01] MEDS: pantoprazole 40mg Tablet.DR PO SCH (20:04)
[2020-02-01] MEDS: temazepam 15mg capsule PO PRN (21:22)
[2020-02-02] MEDS: LORazepam 1 MG tablet PO SCH ×4 (02:00→19:43)
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
--- NOTE | 2020-02-02 03:13 | NUR ---
PPD READ, NEGATIVE 0 MM INDURATION
[2020-02-02] MEDS: acetaminophen 325mg tablet PO PRN (03:20)
[2020-02-02 07:45] VITALS: BP 97/72
[2020-02-02] MEDS: levetiracetam 250mg tablet PO SCH ×2 (07:55→19:43)
[2020-02-02] MEDS: divalproex sodium 500mg tablet.DR PO SCH ×3 (07:56→19:42)
[2020-02-02] MEDS: potassium chloride 8mEq ER tablet PO SCH ×2 (07:56→19:42)
[2020-02-02] MEDS: loratadine 10mg tablet PO SCH (07:56)
[2020-02-02] MEDS: tamsulosin 0.4mg capsule PO SCH (07:56)
[2020-02-02] MEDS: ESCITALOPRAM OXALATE 5 MG TABLET PO SCH (07:57)
[2020-02-02] MEDS: carBAMazepine 100mg chewable tablet PO SCH ×4 (07:58→20:22)
[2020-02-02] MEDS: HYDROchlorothiazide 25mg tablet PO SCH (07:58)
--- NOTE | 2020-02-02 08:30 | NUR ---
RT paged for Resp Tx for pt
[2020-02-02] MEDS: budesonide 0.5mg/2ml UD nebule IH SCH ×2 (08:40→23:50)
[2020-02-02] MEDS: ipratropium/albuterol 3ml nebule IH SCH ×2 (08:40→23:49)
--- NOTE | 2020-02-02 15:26 | NUR ---
RT paged for pt afternoon tx. RT never came this am. Pg'd 2x this am. PT Awaiting afternoon tx
--- NOTE | 2020-02-02 17:43 | NUR ---
Correction, RT tx done this am. Awaiting afternoon tx.
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
[2020-02-02 19:00] VITALS: BP 125/71
[2020-02-02 19:37] VITALS: BP 117/77
[2020-02-02] MEDS: OLANZAPINE 5 MG TABLET PO SCH (19:42)
--- NOTE | 2020-02-02 19:42 | NUR ---
SEIZURE NOTE: Client had a seizure at 19:30 next to the RN station. He was assisted to the floor and placed on his left side by Zev Garland. A pillow was placed under his head. Post seizure vitals were obtained at 19:37. Anju Colmenares LVN and Zev Mccurdy helped client to his bed. Stephanie Tinoco RN assessed client for injury.
[2020-02-02] MEDS: pantoprazole 40mg Tablet.DR PO SCH (19:43)
[2020-02-02 20:48] VITALS: BP 132/64
[2020-02-02] MEDS ORDERED: LORazepam 1 MG tablet PO ONE (20:50)
[2020-02-02] MEDS ORDERED: levetiracetam 250mg tablet PO ONE (20:55)
[2020-02-02 20:57] VITALS: BP 119/59
[2020-02-02 21:15] VITALS: BP 112/67
--- NOTE | 2020-02-02 22:27 | NUR ---
SEIZURES: Client had several seizures. They occurred at 19:37, 20:37, 20:48, and 20:52. Each time client was assisted to the floor by Zev Mccurdy and another staff member. Each time client was turned on his left side and a pillow was place under his head. Vital signs were obtained post seizure and the client was assessed by RN. Uyen Bowman NP was notified and order for 1 mg Ativan PO was administered. Dr. Fierro was notified at 20:50. An order for 500 mg Keppra PO was administered. Client was placed on a LOS.
[2020-02-02] MEDS: temazepam 15mg capsule PO PRN (23:29)
[2020-02-03] MEDS ORDERED: carBAMazepine 100mg chewable tablet PO ONE (02:00)
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
[2020-02-03] MEDS: LORazepam 1 MG tablet PO SCH ×4 (02:15→20:29)
[2020-02-03 07:29] VITALS: BP 104/57
[2020-02-03 08:50] VITALS: BP 140/80
[2020-02-03] MEDS: potassium chloride 8mEq ER tablet PO SCH ×2 (08:52→20:28)
[2020-02-03] MEDS: tamsulosin 0.4mg capsule PO SCH (08:52)
[2020-02-03] MEDS: loratadine 10mg tablet PO SCH (08:52)
[2020-02-03] MEDS: ESCITALOPRAM OXALATE 5 MG TABLET PO SCH (08:52)
[2020-02-03] MEDS: divalproex sodium 500mg tablet.DR PO SCH ×3 (08:52→20:28)
[2020-02-03] MEDS: levetiracetam 250mg tablet PO SCH ×2 (08:52→20:29)
[2020-02-03] MEDS: carBAMazepine 100mg chewable tablet PO SCH ×4 (08:53→20:30)
[2020-02-03] MEDS: HYDROchlorothiazide 25mg tablet PO SCH (08:53)
[2020-02-03] MEDS: budesonide 0.5mg/2ml UD nebule IH SCH ×2 (09:01→21:54)
[2020-02-03] MEDS: ipratropium/albuterol 3ml nebule IH SCH ×3 (09:02→21:54)
--- NOTE | 2020-02-03 16:59 | NUR ---
Received call from [facility]. Will complete routine EEG tomorrow AM. If pt is able to tolerate a continuous EEG, will consider completing that exam as well.
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
[2020-02-03 17:27] LABS: EOSINOPHILS # (AUTO) 0.3 X10'3 (0-0.9); HEMATOCRIT 43.9 % (42.0-52.0); HEMOGLOBIN 15.2 g/dl (14.0-17.9); MEAN PLATELET VOLUME 7.7 FL (7.4-10.4); MONOCYTES # (AUTO) 0.6 X10'3 (0-0.9); RED BLOOD COUNT 4.48 X10'6 (4.70-6.10)
[2020-02-03 17:29] LABS: BASOPHILS % (AUTO) 0.4 % (0-1); LYMPHOCYTES # (AUTO) 2.1 X10'3 (1.1-4.8); LYMPHOCYTES % (AUTO) 35.5 % (21-51); MEAN CORPUSCULAR HEMOGLOBIN 33.9 PG (27.0-31.0); MEAN CORPUSCULAR HGB CONC 34.6 g/dL (33.0-36.5); MONOCYTES % (AUTO) 10.7 % (2-12); NEUTROPHILS # (AUTO) 2.9 X10'3 (1.8-7.7); NEUTROPHILS % (AUTO) 48.4 % (42-75); PLATELET COUNT 241 X10'3 (140-440); RED CELL DISTRIBUTION WIDTH 14.1 % (11.5-14.5); WHITE BLOOD COUNT 5.9 X10'3 (4.5-11.0)
[2020-02-03 17:39] LABS: ALANINE AMINOTRANSFERASE 31 U/L (12-78); ALBUMIN 3.2 G/DL (3.4-5.0); ALBUMIN/GLOBULIN RATIO 0.9 (1.1-1.5); ALKALINE PHOSPHATASE 100 IU/L (46-116); ANION GAP 7 (8-16); ASPARTATE AMINO TRANSFERASE 19 U/L (10-37); BILIRUBIN,TOTAL 0.2 MG/DL (0.1-1.0); BLOOD UREA NITROGEN 21 MG/DL (7-18); BUN/CREATININE RATIO 22.3 (5.4-32.0); CALCIUM 8.5 MG/DL (8.5-10.1); CHLORIDE 102 MMOL/L (99-107); CREATININE 0.94 MG/DL (0.60-1.10); GLUCOSE 146 MG/DL (70-104); SODIUM 140 MMOL/L (135-145); TOTAL CARBON DIOXIDE 31.4 MMOL/L (24-32); TOTAL PROTEIN 6.9 G/DL (6.4-8.2); eGFR 86 ML/MIN
[2020-02-03 17:41] LABS: POTASSIUM 3.7 MMOL/L (3.5-5.1)
[2020-02-03 20:23] VITALS: BP 113/65
[2020-02-03] MEDS: pantoprazole 40mg Tablet.DR PO SCH (20:28)
[2020-02-03] MEDS: OLANZAPINE 5 MG TABLET PO SCH (20:29)
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
[2020-02-04] MEDS: LORazepam 1 MG tablet PO SCH ×4 (02:00→20:30)
[2020-02-04 07:32] VITALS: BP 111/51
[2020-02-04 07:59] VITALS: BP 120/80
[2020-02-04] MEDS: levetiracetam 250mg tablet PO SCH ×2 (08:05→20:30)
[2020-02-04] MEDS: potassium chloride 8mEq ER tablet PO SCH ×2 (08:05→20:31)
[2020-02-04] MEDS: divalproex sodium 500mg tablet.DR PO SCH ×3 (08:05→20:29)
[2020-02-04] MEDS: loratadine 10mg tablet PO SCH (08:05)
[2020-02-04] MEDS: tamsulosin 0.4mg capsule PO SCH (08:05)
[2020-02-04] MEDS: HYDROchlorothiazide 25mg tablet PO SCH (08:05)
[2020-02-04] MEDS: ESCITALOPRAM OXALATE 5 MG TABLET PO SCH (08:05)
[2020-02-04] MEDS: carBAMazepine 100mg chewable tablet PO SCH ×4 (08:06→20:30)
[2020-02-04 08:33] LABS: CARBAMAZEPINE (TEGRETOL) 10.1 UG/ML (4.0-12.0)
[2020-02-04] MEDS: ipratropium/albuterol 3ml nebule IH SCH ×3 (09:00→21:00)
[2020-02-04] MEDS: budesonide 0.5mg/2ml UD nebule IH SCH ×2 (09:00→20:00)
--- NOTE | 2020-02-04 10:00 | NUR ---
Group Therapy: Process Group This Clinicians goals for this process group were as follows: (1) Ask scaling questions about Patients current anxiety, depression, and irritability symptoms as a check-in. (2) Share psychoeducation about emotional escalation as it relates to stress and negative symptoms, Fight, flight, freeze. (2) Provide psychoeducation on the STOPP acronym: Stop, Take a Breath, Observe the situation, Put things into perspective, and, Practice what works. (3) Share psychoeducation on principles of mindfulness and emotional relaxation techniques that Patients may utilize to reduce the acuity of unwanted emotional escalation. (5) Process patients thoughts and reflections on this topic within the group milieu. Patient identified experiencing the following levels of anxiety, depression, and anger/irritability while present in the group milieu (0-low; 10-High). Anxiety: 0/10 Depression: 0/10 Anger/irritability: 0/10 Patient presented as properly oriented x4 during the process group. Patient was dressed in [place] [facility] scrubs within the milieu. Psychomotor activity was unremarkable. Patient's thought content was clear, and concrete. Patient's thought process was simple, and concrete. This Clinician did not observe Patient responding to any internal stimuli during session. The rate, latency, and tone of Patients speech was within normal limits. Patients speech was clear, and understandable. Patient maintained intermittent eye contact with this Clinician. Patient presented in calm euthymic mood, with congruent affect during the process group. Patient presented as open, cooperative, and minimally intrusive within the group milieu. Initially Patient answered scaling questions about that acuity of his depression, anxiety, and irritability symptoms with an, "I don't know," response. He later told this Clinician that he was at a, "0/10," on all his symptoms. Patient presented in a jovial mood, and often interrupted this Clinician, verbally, or in outbursts of laughter--particularly when this Clinician used a made-up example of being frustrated in a fast food restaurant if they didn't have the item that he desire to eat, as a way of illustrating the need to practice the STOPP Method of emotional deescalation. Patient stated that he wanted a, "Soft taco." Patient was escorted out of the process group by medical staff approximately 20 minutes into the process group to administer a medical procedure to Patient. He did not return. Sridhar Arechiga MA, CARE TECHNICIAN Addendum: 02/04/20 at 1140 by Sridhar STALLINGS Amended: Links added.
[2020-02-04] MEDS: albuterol 2.5 MG/3 ML nebule NEB PRN (16:40)
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
[2020-02-04 20:00] VITALS: BP 121/75
[2020-02-04] MEDS: OLANZAPINE 5 MG TABLET PO SCH (20:28)
[2020-02-04] MEDS: pantoprazole 40mg Tablet.DR PO SCH (20:31)
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
[2020-02-05] MEDS: LORazepam 1 MG tablet PO SCH ×4 (02:00→20:15)
[2020-02-05 07:51] VITALS: BP 122/90
[2020-02-05] MEDS: HYDROchlorothiazide 25mg tablet PO SCH (08:03)
[2020-02-05] MEDS: loratadine 10mg tablet PO SCH (08:03)
[2020-02-05] MEDS: potassium chloride 8mEq ER tablet PO SCH ×2 (08:03→20:16)
[2020-02-05] MEDS: carBAMazepine 100mg chewable tablet PO SCH ×4 (08:03→20:18)
[2020-02-05] MEDS: divalproex sodium 500mg tablet.DR PO SCH ×3 (08:03→20:19)
[2020-02-05] MEDS: tamsulosin 0.4mg capsule PO SCH (08:03)
[2020-02-05] MEDS: levetiracetam 250mg tablet PO SCH ×2 (08:04→20:16)
[2020-02-05] MEDS: ESCITALOPRAM OXALATE 5 MG TABLET PO SCH (08:04)
[2020-02-05] MEDS: budesonide 0.5mg/2ml UD nebule IH SCH ×2 (09:39→23:20)
[2020-02-05] MEDS: ipratropium/albuterol 3ml nebule IH SCH ×3 (09:39→23:20)
--- NOTE | 2020-02-05 11:56 | NUR ---
Reassessment: Pt PO 75-100% avg regular diet w/ double protein TID per diet order meeting needs. LBM 02/02. No further nutrition intervention warranted at this time. Will continue to follow. Rec: 1. continue regular diet; double protein TID per diet order 2. bowel care per rx 3. consider hyperglycemia protocol if Glu remains elevated on corticosteroids 4. wt per rx Addendum: 02/05/20 at [address] Amended: Links added.
[2020-02-05] MEDS: acetaminophen 325mg tablet PO PRN (16:35)
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
[2020-02-05] MEDS: pantoprazole 40mg Tablet.DR PO SCH (20:17)
[2020-02-05] MEDS: OLANZAPINE 5 MG TABLET PO SCH (20:17)
[2020-02-05 20:59] VITALS: BP 127/70
--- NOTE | 2020-02-05 21:47 | NUR ---
Pt with multiple seizures this shift, staff assisted patient with changing his clothes x4 due to incontinence during seizures, pt appeared to recover and was laying in bed, then roommate came out and said patient rolled out of bed, staff assisted pt up to bed, vitals taken and WNL, no signs of injury, Dr Rendon notified, patient placed on LOS to prevent further injuries. Will continue to monitor.
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
[2020-02-06] MEDS: LORazepam 1 MG tablet PO SCH ×4 (02:13→20:43)
[2020-02-06] MEDS: temazepam 15mg capsule PO PRN ×2 (02:14→21:07)
[2020-02-06] MEDS: albuterol 2.5 MG/3 ML nebule NEB PRN (02:36)
[2020-02-06] MEDS: levetiracetam 250mg tablet PO SCH ×2 (07:44→20:44)
[2020-02-06] MEDS: carBAMazepine 100mg chewable tablet PO SCH ×4 (07:44→21:10)
[2020-02-06] MEDS: tamsulosin 0.4mg capsule PO SCH (07:45)
[2020-02-06] MEDS: HYDROchlorothiazide 25mg tablet PO SCH (07:45)
[2020-02-06] MEDS: potassium chloride 8mEq ER tablet PO SCH ×2 (07:45→20:44)
[2020-02-06] MEDS: divalproex sodium 500mg tablet.DR PO SCH ×3 (07:45→20:44)
[2020-02-06] MEDS: ESCITALOPRAM OXALATE 5 MG TABLET PO SCH (07:46)
[2020-02-06] MEDS: loratadine 10mg tablet PO SCH (07:46)
[2020-02-06] MEDS: acetaminophen 325mg tablet PO PRN (07:47)
[2020-02-06 08:17] VITALS: BP 99/55
[2020-02-06] MEDS: budesonide 0.5mg/2ml UD nebule IH SCH ×2 (09:12→19:59)
[2020-02-06] MEDS: ipratropium/albuterol 3ml nebule IH SCH ×3 (09:12→19:59)
--- NOTE | 2020-02-06 16:05 | NUR ---
Placement/DCP SS had t/c with pt's [facility]'s Director Of Operations Home Health- Phillip Corbett [phone] & WR[employer] steam pressure chamber operator- Rocky Hernandez @ [phone], left 2 vms for both individuals requesting a rt t/c to discuss pt's dcp as pt's health insurance no longer support inpatient care. Pt is homeless, requires a higher level of care due to seizure activities, therefore, a sober living or independent living situation are no longer appropriate for pt. SS will continue to engage [facility] in dcp activities. Madison Benjamin LCSW Addendum: 02/06/20 at 1611 by Madison Benjamin SS Amended: Links added.
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
[2020-02-06] MEDS: OLANZAPINE 5 MG TABLET PO PRN (17:29)
[2020-02-06] MEDS ORDERED: LORazepam 1 MG tablet PO ONE (17:35)
[2020-02-06 20:00] VITALS: BP 138/84
[2020-02-06] MEDS: pantoprazole 40mg Tablet.DR PO SCH (20:44)
[2020-02-06] MEDS: OLANZAPINE 5 MG TABLET PO SCH (20:44)
[2020-02-06] MEDS ORDERED: haloperidol lactate 5mg/ml inj ONE (22:03)
[2020-02-06] MEDS ORDERED: diphenhydrAMINE 50 mg/ml inj ONE (22:04)
[2020-02-06] MEDS ORDERED: LORazepam 2 mg/ml vial ONE (22:05)
--- NOTE | 2020-02-06 22:19 | NUR ---
Patient has been labile all evening, up until a few minutes ago he was mostly retractible. Patient suddenly became outraged. Cisco DURAND came into room, evaluated patient. Patient was combative with staff. Patient given Haldol 10 mg IM, Benadryl 50 mg IM, and Atavan 2 mg. Patient has a sitter at bedside. Vital signs are being taken frequently. Patient is relaxing and becoming more cooperative after sedation. Sa02 is 92 percent on room air. Patient has refused his nightly CPAP.
[2020-02-07] MEDS: traZODone 50mg tablet PO PRN (02:21)
[2020-02-07] MEDS: LORazepam 1 MG tablet PO SCH ×4 (02:25→20:57)
[2020-02-07] MEDS: hydrOXYzine 25 MG tablet PO PRN ×2 (03:57→20:57)
[2020-02-07] MEDS: acetaminophen 325mg tablet PO PRN (03:58)
--- NOTE | 2020-02-07 04:01 | NUR ---
Patient awoke screaming, he exhibits agitation. Patient states he has a headache, he describes the frontal region. Tylenol and Atarax given. Patient returns to sleep.
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
[2020-02-07 08:00] VITALS: BP 104/67
[2020-02-07] MEDS: tamsulosin 0.4mg capsule PO SCH (08:16)
[2020-02-07] MEDS: loratadine 10mg tablet PO SCH (08:16)
[2020-02-07] MEDS: HYDROchlorothiazide 25mg tablet PO SCH (08:16)
[2020-02-07] MEDS: levetiracetam 250mg tablet PO SCH ×2 (08:16→21:02)
[2020-02-07] MEDS: potassium chloride 8mEq ER tablet PO SCH ×2 (08:16→21:03)
[2020-02-07] MEDS: carBAMazepine 100mg chewable tablet PO SCH ×4 (08:17→21:01)
[2020-02-07] MEDS: divalproex sodium 500mg tablet.DR PO SCH ×3 (08:17→21:00)
[2020-02-07] MEDS: ipratropium/albuterol 3ml nebule IH SCH ×3 (09:51→21:22)
[2020-02-07] MEDS: budesonide 0.5mg/2ml UD nebule IH SCH ×2 (09:51→21:21)
[2020-02-07] MEDS: ESCITALOPRAM OXALATE 5 MG TABLET PO SCH (12:00)
--- NOTE | 2020-02-07 15:42 | NUR ---
CM-Placement Presenting Issues: Pt's mental health sxs are well managed with current medication regiment. However, pt's chronic medical issues complicate discharge; pt appears to be experiencing frequent seizure episodes, he is unable to manage his own meds and therefore requires support in the home upon d/c. Pt currently does not have access to any type of in-home support/care. SS received vm from pt's [facility]-Phillip Corbett [phone], per vm, [facility] in [place] is considering pt for placement. SS also received vm from Lashawn Guzmán @ [facility] in [place]- [phone] requesting info about pt for placement purposes. Hope from [facility] [phone] left requesting update on pt. Interventions: SS had t/c w/Hope and provided update re complications associated w/d/c at this time. SS rt t/c to [facility] & [facility] left requesting rt t/c to discuss dcp & placement possibility for pt. Plan: will continue to engage [facility], [facility] and [facility] in dcp & placement activities to facilitate a safe d/c for pt. Madison Benjamin LCSW Addendum: 02/07/20 at 1607 by Madison Benjamin SS Amended: Links added.
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
[2020-02-07 20:00] VITALS: BP 112/75
[2020-02-07] MEDS: pantoprazole 40mg Tablet.DR PO SCH (20:57)
[2020-02-07] MEDS: OLANZAPINE 5 MG TABLET PO SCH (21:01)
[2020-02-08] MEDS: LORazepam 1 MG tablet PO SCH ×4 (02:00→20:17)
[2020-02-08] MEDS: acetaminophen 325mg tablet PO PRN (03:26)
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
[2020-02-08] MEDS: ESCITALOPRAM OXALATE 5 MG TABLET PO SCH (07:49)
[2020-02-08] MEDS: HYDROchlorothiazide 25mg tablet PO SCH (07:49)
[2020-02-08] MEDS: potassium chloride 8mEq ER tablet PO SCH ×2 (07:49→20:17)
[2020-02-08] MEDS: carBAMazepine 100mg chewable tablet PO SCH ×4 (07:49→20:18)
[2020-02-08] MEDS: divalproex sodium 500mg tablet.DR PO SCH ×3 (07:50→20:16)
[2020-02-08] MEDS: tamsulosin 0.4mg capsule PO SCH (07:50)
[2020-02-08] MEDS: loratadine 10mg tablet PO SCH (07:50)
[2020-02-08] MEDS: levetiracetam 250mg tablet PO SCH ×2 (07:50→20:18)
[2020-02-08 08:00] VITALS: BP 106/71
[2020-02-08] MEDS: budesonide 0.5mg/2ml UD nebule IH SCH ×2 (08:00→20:35)
[2020-02-08] MEDS: ipratropium/albuterol 3ml nebule IH SCH ×3 (09:00→20:35)
[2020-02-08 19:12] VITALS: BP 121/65
[2020-02-08] MEDS: OLANZAPINE 5 MG TABLET PO SCH (20:16)
[2020-02-08] MEDS: pantoprazole 40mg Tablet.DR PO SCH (20:17)
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
[2020-02-09] MEDS: LORazepam 1 MG tablet PO SCH ×4 (02:00→19:53)
[2020-02-09] MEDS: acetaminophen 325mg tablet PO PRN ×2 (05:23→19:53)
[2020-02-09 07:46] VITALS: BP 99/72
[2020-02-09] MEDS: ESCITALOPRAM OXALATE 5 MG TABLET PO SCH (08:00)
[2020-02-09] MEDS: loratadine 10mg tablet PO SCH (08:00)
[2020-02-09] MEDS: divalproex sodium 500mg tablet.DR PO SCH ×3 (08:02→19:56)
[2020-02-09] MEDS: tamsulosin 0.4mg capsule PO SCH (08:02)
[2020-02-09] MEDS: potassium chloride 8mEq ER tablet PO SCH (08:02)
[2020-02-09] MEDS: levetiracetam 250mg tablet PO SCH ×2 (08:02→19:52)
[2020-02-09] MEDS: carBAMazepine 100mg chewable tablet PO SCH ×4 (08:04→19:54)
[2020-02-09 08:29] VITALS: BP 116/75
[2020-02-09] MEDS: HYDROchlorothiazide 25mg tablet PO SCH (08:30)
--- NOTE | 2020-02-09 08:36 | NUR ---
Pt agrees to do RT tx, RT paged
--- NOTE | 2020-02-09 08:43 | NUR ---
RT here for pt
[2020-02-09] MEDS: budesonide 0.5mg/2ml UD nebule IH SCH ×2 (08:45→20:20)
[2020-02-09] MEDS: ipratropium/albuterol 3ml nebule IH SCH ×3 (08:45→20:20)
--- NOTE | 2020-02-09 15:28 | NUR ---
RT paged for tx
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
[2020-02-09 19:23] VITALS: BP 107/63
[2020-02-09] MEDS: pantoprazole 40mg Tablet.DR PO SCH (19:53)
[2020-02-09] MEDS: OLANZAPINE 5 MG TABLET PO SCH (19:53)
[2020-02-09] MEDS: POTASSIUM BICARBONATE/CIT AC 10 MEQ TABLET.EFF PO SCH (19:54)
[2020-02-09] MEDS: benztropine 1mg tablet PO SCH (19:54)
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
[2020-02-10] MEDS: LORazepam 1 MG tablet PO SCH ×4 (02:00→20:06)
[2020-02-10 08:00] VITALS: BP 117/66
[2020-02-10] MEDS: benztropine 1mg tablet PO SCH ×2 (08:37→20:06)
[2020-02-10] MEDS: loratadine 10mg tablet PO SCH (08:37)
[2020-02-10] MEDS: POTASSIUM BICARBONATE/CIT AC 10 MEQ TABLET.EFF PO SCH ×2 (08:37→20:06)
[2020-02-10] MEDS: divalproex sodium 500mg tablet.DR PO SCH ×3 (08:37→20:06)
[2020-02-10] MEDS: carBAMazepine 100mg chewable tablet PO SCH ×4 (08:38→20:07)
[2020-02-10] MEDS: levetiracetam 250mg tablet PO SCH ×2 (08:38→20:06)
[2020-02-10] MEDS: ESCITALOPRAM OXALATE 5 MG TABLET PO SCH (08:38)
[2020-02-10] MEDS: tamsulosin 0.4mg capsule PO SCH (08:38)
[2020-02-10] MEDS: HYDROchlorothiazide 25mg tablet PO SCH (08:38)
[2020-02-10] MEDS: budesonide 0.5mg/2ml UD nebule IH SCH ×2 (09:55→20:25)
[2020-02-10] MEDS: ipratropium/albuterol 3ml nebule IH SCH ×3 (09:56→20:24)
[2020-02-10 10:46] LABS: ALANINE AMINOTRANSFERASE 25 U/L (12-78); ALBUMIN 3.3 G/DL (3.4-5.0); ALBUMIN/GLOBULIN RATIO 0.9 (1.1-1.5); ALKALINE PHOSPHATASE 96 IU/L (46-116); ANION GAP 7 (8-16); ASPARTATE AMINO TRANSFERASE 15 U/L (10-37); BILIRUBIN,TOTAL 0.4 MG/DL (0.1-1.0); BLOOD UREA NITROGEN 19 MG/DL (7-18); BUN/CREATININE RATIO 21.8 (5.4-32.0); CALCIUM 8.6 MG/DL (8.5-10.1); CHLORIDE 101 MMOL/L (99-107); CREATININE 0.87 MG/DL (0.60-1.10); GLUCOSE 112 MG/DL (70-104); POTASSIUM 3.6 MMOL/L (3.5-5.1); SODIUM 140 MMOL/L (135-145); TOTAL CARBON DIOXIDE 32.2 MMOL/L (24-32); VALPROATE 72 UG/ML (50-100); eGFR > 90 ML/MIN
[2020-02-10 10:47] LABS: CARBAMAZEPINE (TEGRETOL) 7.8 UG/ML (4.0-12.0)
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
[2020-02-10] MEDS: acetaminophen 325mg tablet PO PRN (17:30)
[2020-02-10 19:32] VITALS: BP 107/75
[2020-02-10] MEDS: OLANZAPINE 5 MG TABLET PO SCH (20:07)
[2020-02-10] MEDS: pantoprazole 40mg Tablet.DR PO SCH (20:07)
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
[2020-02-11] MEDS: acetaminophen 325mg tablet PO PRN ×4 (01:36→18:49)
[2020-02-11] MEDS: LORazepam 1 MG tablet PO SCH ×4 (01:37→20:09)
[2020-02-11] MEDS: levetiracetam 250mg tablet PO SCH ×2 (07:04→20:10)
[2020-02-11] MEDS: benztropine 1mg tablet PO SCH ×2 (07:04→20:09)
[2020-02-11] MEDS: loratadine 10mg tablet PO SCH (07:04)
[2020-02-11] MEDS: tamsulosin 0.4mg capsule PO SCH (07:04)
[2020-02-11] MEDS: POTASSIUM BICARBONATE/CIT AC 10 MEQ TABLET.EFF PO SCH ×2 (07:05→20:09)
[2020-02-11] MEDS: divalproex sodium 500mg tablet.DR PO SCH ×3 (07:05→20:10)
[2020-02-11] MEDS: ESCITALOPRAM OXALATE 5 MG TABLET PO SCH (07:06)
[2020-02-11] MEDS: HYDROchlorothiazide 25mg tablet PO SCH (07:06)
[2020-02-11] MEDS: carBAMazepine 100mg chewable tablet PO SCH ×4 (07:15→20:11)
[2020-02-11 07:37] VITALS: BP 129/81
--- NOTE | 2020-02-11 09:43 | NUR ---
DISCHARGE PLANNING Left message for Phillip Aric (ph# [phone]) regarding discharge plan and potential [facility] availability. Spoke with Hope at [facility] (ph# [phone]) to provide an update and potential discharge. She reported the only nursing home in [facility] accepting people is [facility]. Called [facility] and was informed they are not longer taking new residents due to Covid. BROOKE Larios
[2020-02-11] MEDS: ipratropium/albuterol 3ml nebule IH SCH ×3 (09:52→20:27)
[2020-02-11] MEDS: budesonide 0.5mg/2ml UD nebule IH SCH ×2 (09:52→20:27)
[2020-02-11 10:22] LABS: CARBAMAZEPINE (TEGRETOL) 8.4 UG/ML (4.0-12.0)
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
[2020-02-11] MEDS: temazepam 15mg capsule PO PRN (20:11)
[2020-02-11] MEDS: OLANZAPINE 5 MG TABLET PO SCH (20:11)
[2020-02-11] MEDS: pantoprazole 40mg Tablet.DR PO SCH (20:12)
[2020-02-11 20:48] VITALS: BP 130/94
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
[2020-02-12] MEDS: LORazepam 1 MG tablet PO SCH ×4 (01:32→20:00)
[2020-02-12] MEDS: OLANZAPINE 5 MG TABLET PO PRN (01:33)
[2020-02-12] MEDS: acetaminophen 325mg tablet PO PRN ×2 (01:33→07:26)
[2020-02-12] MEDS: POTASSIUM BICARBONATE/CIT AC 10 MEQ TABLET.EFF PO SCH ×2 (07:24→20:00)
[2020-02-12] MEDS: carBAMazepine 100mg chewable tablet PO SCH ×4 (07:24→21:09)
[2020-02-12] MEDS: loratadine 10mg tablet PO SCH (07:25)
[2020-02-12] MEDS: ESCITALOPRAM OXALATE 5 MG TABLET PO SCH (07:25)
[2020-02-12] MEDS: HYDROchlorothiazide 25mg tablet PO SCH (07:25)
[2020-02-12] MEDS: divalproex sodium 500mg tablet.DR PO SCH ×3 (07:25→21:08)
[2020-02-12] MEDS: benztropine 1mg tablet PO SCH ×2 (07:25→21:09)
[2020-02-12] MEDS: levetiracetam 250mg tablet PO SCH ×2 (07:25→21:08)
[2020-02-12] MEDS: tamsulosin 0.4mg capsule PO SCH (07:26)
[2020-02-12 07:52] VITALS: BP 129/84
[2020-02-12] MEDS: budesonide 0.5mg/2ml UD nebule IH SCH ×2 (08:53→20:54)
[2020-02-12] MEDS: ipratropium/albuterol 3ml nebule IH SCH ×2 (08:53→20:54)
[2020-02-12] MEDS ORDERED: benzocaine (Anbesol) 12ml bottle MM PRN (10:20)
--- NOTE | 2020-02-12 10:31 | NUR ---
ACCEPTED AT [facility] Spoke to Inna at [facility] (ph# [phone]). She reported she interviewed Aiden this morning and he has been accepted at [facility]. They can take him on Tuesday02/18/20. She reported he will need to come with a 30 day supply of medications. She reported she will work with [facility] to work out payment as they are his payee. 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 Plan: Call Inna at [facility] on Tuesday to arrange for intake time. BROOKE Larios
--- NOTE | 2020-02-12 10:48 | NUR ---
Called Aiden's [facility] coordinator, Phillip (ph# [phone]), to discuss discharge plan. Phillip reported Aiden had been declined at [facility] due to the cost. Informed Phillip that Aiden has been accepted at [facility]. Expressed concern about Aiden's ability to manage at [facility]. Asked if [facility] can assist with follow up appointments in [place] as Aiden's [facility] is [facility]. Phillip reported he will try to assist. Glassie will inform him of follow up appts once they have been made. BROOKE Larios
[2020-02-12] MEDS ORDERED: TRAZ-251 PO (15:34)
[2020-02-12] MEDS ORDERED: FLO0.4C PO (15:34)
[2020-02-12] MEDS ORDERED: LORA10TA65 PO (15:34)
[2020-02-12] MEDS ORDERED: DIVA500T2 PO ×3 (15:34)
[2020-02-12] MEDS ORDERED: POTA10TA52 PO (15:34)
[2020-02-12] MEDS ORDERED: BENZ1TAB7 PO (15:34)
[2020-02-12] MEDS ORDERED: UMEC1DIS INH (15:34)
[2020-02-12] MEDS ORDERED: CARB100T15 PO (15:34)
[2020-02-12] MEDS ORDERED: ALB0.5UD IH (15:34)
[2020-02-12] MEDS ORDERED: TEMA15CA5 PO (15:34)
[2020-02-12] MEDS ORDERED: OLAN15TA17 PO (15:34)
[2020-02-12] MEDS ORDERED: PANT40TA54 PO (15:34)
[2020-02-12] MEDS ORDERED: ATI1T PO (15:34)
[2020-02-12] MEDS ORDERED: HYDR28.316 RC (15:34)
[2020-02-12] MEDS ORDERED: HYDR-3686 PO (15:34)
[2020-02-12] MEDS ORDERED: ADV50100 IH (15:34)
[2020-02-12] MEDS ORDERED: LEVE500T PO (15:34)
[2020-02-12] MEDS ORDERED: ESCI20TA45 PO (15:34)
[2020-02-12] MEDS ORDERED: HYDR50TA3 PO (15:34)
[2020-02-12 19:52] VITALS: BP 117/69
[2020-02-12] MEDS ORDERED: diphenhydrAMINE 50 mg/ml inj ONE (20:25)
[2020-02-12] MEDS ORDERED: LORazepam 2 mg/ml vial ONE (20:29)
[2020-02-12] MEDS ORDERED: haloperidol lactate 5mg/ml inj ONE (20:30)
[2020-02-12] MEDS: OLANZAPINE 5 MG TABLET PO SCH (21:08)
[2020-02-12] MEDS: pantoprazole 40mg Tablet.DR PO SCH (21:09)
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
[2020-02-13] MEDS: LORazepam 1 MG tablet PO SCH ×4 (02:00→20:32)
[2020-02-13 07:32] VITALS: BP 101/68
[2020-02-13] MEDS: carBAMazepine 100mg chewable tablet PO SCH ×4 (07:56→20:32)
[2020-02-13] MEDS: levetiracetam 250mg tablet PO SCH ×2 (07:57→20:36)
[2020-02-13] MEDS: divalproex sodium 500mg tablet.DR PO SCH ×3 (07:57→20:34)
[2020-02-13] MEDS: ESCITALOPRAM OXALATE 5 MG TABLET PO SCH (07:57)
[2020-02-13] MEDS: tamsulosin 0.4mg capsule PO SCH (07:57)
[2020-02-13] MEDS: loratadine 10mg tablet PO SCH (07:57)
[2020-02-13] MEDS: benztropine 1mg tablet PO SCH ×2 (07:58→20:33)
[2020-02-13] MEDS: HYDROchlorothiazide 25mg tablet PO SCH (07:58)
[2020-02-13] MEDS: POTASSIUM BICARBONATE/CIT AC 10 MEQ TABLET.EFF PO SCH ×2 (07:58→20:36)
[2020-02-13] MEDS: budesonide 0.5mg/2ml UD nebule IH SCH ×2 (08:28→20:11)
[2020-02-13] MEDS: ipratropium/albuterol 3ml nebule IH SCH ×3 (08:30→20:11)
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
[2020-02-13 20:17] VITALS: BP 118/71
[2020-02-13] MEDS: OLANZAPINE 5 MG TABLET PO SCH (20:33)
[2020-02-13] MEDS: pantoprazole 40mg Tablet.DR PO SCH (20:34)
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
[2020-02-14] MEDS: LORazepam 1 MG tablet PO SCH ×4 (02:28→20:36)
[2020-02-14] MEDS: acetaminophen 325mg tablet PO PRN (02:29)
[2020-02-14 07:38] VITALS: BP 108/70
[2020-02-14] MEDS: tamsulosin 0.4mg capsule PO SCH (07:45)
[2020-02-14] MEDS: benztropine 1mg tablet PO SCH ×2 (07:45→20:36)
[2020-02-14] MEDS: loratadine 10mg tablet PO SCH (07:45)
[2020-02-14] MEDS: divalproex sodium 500mg tablet.DR PO SCH ×3 (07:46→20:37)
[2020-02-14] MEDS: HYDROchlorothiazide 25mg tablet PO SCH (07:46)
[2020-02-14] MEDS: POTASSIUM BICARBONATE/CIT AC 10 MEQ TABLET.EFF PO SCH ×2 (07:46→20:50)
[2020-02-14] MEDS: carBAMazepine 100mg chewable tablet PO SCH ×4 (07:47→20:38)
[2020-02-14] MEDS: levetiracetam 250mg tablet PO SCH ×2 (07:47→20:38)
[2020-02-14] MEDS: ESCITALOPRAM OXALATE 5 MG TABLET PO SCH (07:47)
[2020-02-14] MEDS: budesonide 0.5mg/2ml UD nebule IH SCH ×2 (10:12→10:17)
[2020-02-14] MEDS: ipratropium/albuterol 3ml nebule IH SCH ×3 (10:13→19:56)
--- NOTE | 2020-02-14 11:41 | NUR ---
[facility] Called [facility] to confirm that Aiden's medications will get delivered today. They should get delivered today and he should be ready for discharge to [place] on Tuesday. BROOKE Larios
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
[2020-02-14 19:00] VITALS: BP 106/74
[2020-02-14] MEDS: OLANZAPINE 5 MG TABLET PO SCH (20:36)
[2020-02-14] MEDS: pantoprazole 40mg Tablet.DR PO SCH (20:38)
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
[2020-02-15] MEDS: LORazepam 1 MG tablet PO SCH ×4 (02:00→20:16)
[2020-02-15] MEDS: POTASSIUM BICARBONATE/CIT AC 10 MEQ TABLET.EFF PO SCH ×2 (07:33→20:16)
[2020-02-15] MEDS: carBAMazepine 100mg chewable tablet PO SCH ×4 (07:33→20:15)
[2020-02-15] MEDS: benztropine 1mg tablet PO SCH ×2 (07:34→20:16)
[2020-02-15] MEDS: loratadine 10mg tablet PO SCH (07:34)
[2020-02-15] MEDS: divalproex sodium 500mg tablet.DR PO SCH ×3 (07:34→20:14)
[2020-02-15] MEDS: tamsulosin 0.4mg capsule PO SCH (07:34)
[2020-02-15] MEDS: levetiracetam 250mg tablet PO SCH ×2 (07:34→20:15)
[2020-02-15] MEDS: ESCITALOPRAM OXALATE 5 MG TABLET PO SCH (07:35)
[2020-02-15] MEDS: HYDROchlorothiazide 25mg tablet PO SCH (07:35)
[2020-02-15] MEDS: budesonide 0.5mg/2ml UD nebule IH SCH ×2 (07:48→19:11)
[2020-02-15 08:35] VITALS: BP 99/72
[2020-02-15] MEDS: ipratropium/albuterol 3ml nebule IH SCH ×3 (09:00→19:11)
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
[2020-02-15 19:00] VITALS: BP 121/71
[2020-02-15] MEDS: OLANZAPINE 5 MG TABLET PO SCH (20:15)
[2020-02-15] MEDS: pantoprazole 40mg Tablet.DR PO SCH (20:16)
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
[2020-02-16] MEDS: LORazepam 1 MG tablet PO SCH ×4 (02:00→20:24)
[2020-02-16] MEDS: mag hydrox/Alum hydrox/simeth 30ml oral suspension PO PRN (04:00)
[2020-02-16] MEDS: POTASSIUM BICARBONATE/CIT AC 10 MEQ TABLET.EFF PO SCH ×2 (07:47→20:24)
[2020-02-16] MEDS: HYDROchlorothiazide 25mg tablet PO SCH (07:48)
[2020-02-16] MEDS: levetiracetam 250mg tablet PO SCH ×2 (07:49→20:23)
[2020-02-16] MEDS: benztropine 1mg tablet PO SCH ×2 (07:49→20:24)
[2020-02-16] MEDS: loratadine 10mg tablet PO SCH (07:49)
[2020-02-16] MEDS: divalproex sodium 500mg tablet.DR PO SCH ×3 (07:49→20:24)
[2020-02-16] MEDS: tamsulosin 0.4mg capsule PO SCH (07:49)
[2020-02-16] MEDS: ESCITALOPRAM OXALATE 5 MG TABLET PO SCH (07:49)
[2020-02-16] MEDS: acetaminophen 325mg tablet PO PRN (07:50)
[2020-02-16] MEDS: carBAMazepine 100mg chewable tablet PO SCH ×4 (07:50→20:23)
[2020-02-16] MEDS: budesonide 0.5mg/2ml UD nebule IH SCH ×3 (07:51→22:53)
[2020-02-16] MEDS: ipratropium/albuterol 3ml nebule IH SCH ×4 (07:53→22:53)
[2020-02-16 07:54] VITALS: BP 114/75
--- NOTE | 2020-02-16 10:50 | NUR ---
Reassessment: Pt PO 75-100% avg regular diet w/ double protein TID per diet order meeting needs. Rec: 1. continue regular diet; double protein TID per diet order 2. bowel care per rx 3. wt per rx Addendum: 02/16/20 at [address] Amended: Links added.
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
[2020-02-16 19:13] VITALS: BP 100/60
[2020-02-16] MEDS: pantoprazole 40mg Tablet.DR PO SCH (20:24)
[2020-02-16] MEDS: OLANZAPINE 5 MG TABLET PO SCH (20:24)
[2020-02-16] MEDS: traZODone 50mg tablet PO PRN (20:24)
[2020-02-17] MEDS: LORazepam 1 MG tablet PO SCH ×4 (02:00→20:26)
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
[2020-02-17] MEDS: POTASSIUM BICARBONATE/CIT AC 10 MEQ TABLET.EFF PO SCH ×2 (07:18→20:27)
[2020-02-17] MEDS: carBAMazepine 100mg chewable tablet PO SCH ×4 (07:18→20:27)
[2020-02-17] MEDS: divalproex sodium 500mg tablet.DR PO SCH ×3 (07:19→20:26)
[2020-02-17] MEDS: HYDROchlorothiazide 25mg tablet PO SCH (07:19)
[2020-02-17] MEDS: levetiracetam 250mg tablet PO SCH ×2 (07:20→20:25)
[2020-02-17] MEDS: benztropine 1mg tablet PO SCH ×2 (07:20→20:25)
[2020-02-17] MEDS: tamsulosin 0.4mg capsule PO SCH (07:20)
[2020-02-17] MEDS: ESCITALOPRAM OXALATE 5 MG TABLET PO SCH (07:20)
[2020-02-17] MEDS: loratadine 10mg tablet PO SCH (07:20)
[2020-02-17 07:26] VITALS: BP 116/76
[2020-02-17] MEDS: budesonide 0.5mg/2ml UD nebule IH SCH ×2 (08:00→20:00)
[2020-02-17] MEDS: ipratropium/albuterol 3ml nebule IH SCH ×3 (09:00→21:00)
[2020-02-17] MEDS: albuterol 2.5 MG/3 ML nebule NEB PRN (12:13)
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
[2020-02-17 20:05] VITALS: BP 134/76
[2020-02-17] MEDS: OLANZAPINE 5 MG TABLET PO SCH (20:25)
[2020-02-17] MEDS: pantoprazole 40mg Tablet.DR PO SCH (20:26)
[2020-02-17] MEDS: acetaminophen 325mg tablet PO PRN (22:06)
--- NOTE | 2020-02-17 23:25 | NUR ---
Nursing Progress Note: Legal hold: Voluntary Client on voluntary for DTS Report received from Edilberto RIVERA with use of SBAR: Why are they here: Patient is a 49 year old male admitted on a 5150 hold for DTS after voluntarily taking himself to [facility] ED for SI. Patient stated he attempted to kill himself 2 times that morning ( 01/16/20) by [place]. Pt was evaluated by [facility]. Pt stated "he did not jump, but instead he fell to his knees and prayed to his parents." Pt reported his mother on "a long time ago." . Pt also reported his father and he has not dealt with his grief. Pt reported "not feeling comfortable going home because his neighbor bugged his telephone and put cameras on his vents." Pt reported he stopped taking his medications. During assessment patient wrapped his bed sheet around his neck in an attempt to choke himself. Assessment What has happened this shift: Pt was up and social in the butt at shift change. He is happy about discharge tomorrow to [facility]. Pt had no seizure activity this shift. Pt was med compliant and cooperative. S/I, H/I: Pt Denies A/VH: Pt Denies Sleep: Pt slept 5 hours last night per noc shift report, pt takes short naps throughout the day. ADL's: Independent. Group attendance: No groups today. Were meds taken: Yes Any med S/E: None noted or reported. Mental Status Exam Appearance: Disheveled middle aged, gentleman with short brown hair wearing green unit scrubs. Eye contact: Good Behavior: Pleasant, cooperative, listens to radio headphones, socializes with staff and peers. Speech: Clear, audible Mood: Euthymic Affect: Euthymic, friendly Thought process: Linear Thought Content: Looking forward to being discharged tomorrow. Cognition: A/O X 4 Insight: Fair Judgment: Fair Interventions PRN's used: None Therapeutic interventions: 1:1 assessment, therapeutic communication, active listening, medication administration/education/monitoring, ensured contract for safety, maintained a safe and therapeutic environment, provided clear and simple instructions, encouraged performance of ADLs/participation on unit, monitored for behavior/seizures and provided intervention as needed, and maintained Q 15 minute safety checks. Restraints/seclusion/emergency medication: N/A Justification of Continued Inpatient Treatment: Pt is at baseline. Plan is for pt to D/c to [place] tomorrow.
[2020-02-18] MEDS: LORazepam 1 MG tablet PO SCH ×2 (02:00→07:51)
[2020-02-18] MEDS: acetaminophen 325mg tablet PO PRN ×2 (03:39→06:07)
[2020-02-18] MEDS: ipratropium/albuterol 3ml nebule IH SCH (07:17)
[2020-02-18] MEDS: budesonide 0.5mg/2ml UD nebule IH SCH (07:18)
[2020-02-18] MEDS: carBAMazepine 100mg chewable tablet PO SCH (07:51)
[2020-02-18] MEDS: loratadine 10mg tablet PO SCH (07:51)
[2020-02-18] MEDS: POTASSIUM BICARBONATE/CIT AC 10 MEQ TABLET.EFF PO SCH (07:52)
[2020-02-18] MEDS: benztropine 1mg tablet PO SCH (07:52)
[2020-02-18] MEDS: tamsulosin 0.4mg capsule PO SCH (07:52)
[2020-02-18] MEDS: divalproex sodium 500mg tablet.DR PO SCH (07:52)
[2020-02-18] MEDS: ESCITALOPRAM OXALATE 5 MG TABLET PO SCH (07:53)
[2020-02-18] MEDS: levetiracetam 250mg tablet PO SCH (07:54)
[2020-02-18] MEDS: HYDROchlorothiazide 25mg tablet PO SCH (07:54)
[2020-02-18 08:28] VITALS: BP 117/90
--- NOTE | 2020-02-18 12:34 | NUR ---
Nursing Discharge Note Pt discharged from [facility] to [facility] via uber at 1215. Pts belongings and valuables were inventoried and returned to him. Pt in a pleasant and cooperative mood and excited about leaving. Pt denies SI/HI and has been improving since admission. Pt in no acute emotional or physical distress. Pt understands his discharge instructions and plan and did not want nicotine replacement.
--- NOTE | 2020-02-18 12:37 | NUR ---
DCP-Discharge Presenting Issues: Pt's scheduled to d/c today & transition to [facility] for substance use treatment. Attending PA requesting SS support to finalize pt's dcp. Interventions: SS had t/c with Inna academic services coordinator @ [facility], per t/c pt is expected there today, they prefer it if pt can go there before noon. Attempts were made to schedule post-hospital f/u with pt's primary healthcare provider-[facility] in [place], but was unable to schedule follow-up prior to pt leaving [facility]. It is expected that pt may return to the ER w/in 30-days of d/c as pt requires significant support in his immediate living environment to be able to safely take his meds although pt's MH are sxs are well managed by current psychotropics. In addition, per consult w/pt's [facility] support team, SS had recommended that pt be placed in a board & shelter in [facility] as pt has significant medical needs and his provider is in [facility]. However, [facility] opted not to place pt at a sober living facility in [place] due to costs issues and opted to place pt at a 30-day program @ [facility] here in [place], [place] eventhough it was communicated to pt's [facility]'s team that this is an inappropriate living environment for pt. Plan: Pt to d/c today. Madison Benjamin LCSW Addendum: 02/18/20 at 1246 by Madison STALLINGS Amended: Links added.
== END 2020-02-18 12:37 | disposition home or self-care (01) | DRG 751 ==
LOC: ADULT MH 12:51
PROVIDERS: ADMIT Psychiatry & Neurology Psychiatry; ATTEND Psychiatry & Neurology Psychiatry
PROC: 4A00X4Z Measurement of Central Nervous Electrical Activity, External Approach (ICD-10-PCS; principal; 2020-02-04)
DX: F29 Unspecified psychosis not due to a substance or known physiological condition (principal); E87.6 Hypokalemia; G40.909 Epilepsy, unspecified, not intractable, without status epilepticus; G47.33 Obstructive sleep apnea (adult) (pediatric); I10 Essential (primary) hypertension; J44.9 Chronic obstructive pulmonary disease, unspecified; K21.9 Gastro-esophageal reflux disease without esophagitis; R62.50 Unspecified lack of expected normal physiological development in childhood; R45.851 Suicidal ideations; Z84.1 Family history of disorders of kidney and ureter; Z82.3 Family history of stroke; Z83.3 Family history of diabetes mellitus; Z87.442 Personal history of urinary calculi; Z88.5 Allergy status to narcotic agent; Z88.8 Allergy status to other drugs, medicaments and biological substances; Z91.030 Bee allergy status; Z91.013 Allergy to seafood; Z91.018 Allergy to other foods; Z79.899 Other long term (current) drug therapy; Z80.9 Family history of malignant neoplasm, unspecified
CPT/HCPCS: 36415; 70450; 71045; 73130; 80053; 80061; 80156; 80164; 80177; 82948; 83036; 83735; 84100; 85025; 87081; 94640; 94660; 94760; 94799; 95816; J1200; J1630; J2060; J7626; Q0177

== ENCOUNTER 2020-02-19 11:31 | Emergency (ER) | payer MEDICAID ==
[~2020-02-19] VITALS: Ht 167.6 cm; Wt 114.0 kg
[~2020-02-19 11:31] MED LIST: ADV50100 IH; ALB0.5UD IH; ATI1T PO; BENZ1TAB7 PO; CARB100T15 PO; DIVA500T2 PO; ESCI20TA45 PO; FLO0.4C PO; HYDR-3686 PO; HYDR28.316 RC; HYDR50TA3 PO; LEVE500T PO; LORA10TA65 PO; OLAN15TA17 PO; PANT40TA54 PO; POTA10TA52 PO; TEMA15CA5 PO; TRAZ-251 PO; UMEC1DIS INH
--- NOTE | 2020-02-19 12:14 | NUR ---
While attempting to start a PIV, pt lost attention, and R side became rigid. Episode lasted 10-15 seconds before resolving. Pt then A&Ox4 but slow to answer questions.
--- NOTE | 2020-02-19 12:33 | NUR ---
LADARIUS Camacho at bedside, heard pt make gtunring noise and went to bedside as well. Breief episode of tonic clonic activity witnessed. Ativan to be given.
[2020-02-19] MEDS ORDERED: LORazepam 2 mg/ml vial IV ONE (12:35)
[2020-02-19 13:34] LABS: BASOPHILS % (AUTO) 0.5 % (0-1); EOSINOPHILS # (AUTO) 0.4 X10'3 (0-0.9); EOSINOPHILS % (AUTO) 4.7 % (0-6); HEMATOCRIT 43.5 % (42.0-52.0); HEMOGLOBIN 15.1 g/dl (14.0-17.9); LYMPHOCYTES # (AUTO) 2.2 X10'3 (1.1-4.8); LYMPHOCYTES % (AUTO) 24.6 % (21-51); MEAN CORPUSCULAR HEMOGLOBIN 33.8 PG (27.0-31.0); MEAN CORPUSCULAR HGB CONC 34.8 g/dL (33.0-36.5); MONOCYTES % (AUTO) 11.6 % (2-12); NEUTROPHILS # (AUTO) 5.2 X10'3 (1.8-7.7); NEUTROPHILS % (AUTO) 58.6 % (42-75); PLATELET COUNT 216 X10'3 (140-440); RED BLOOD COUNT 4.48 X10'6 (4.70-6.10); RED CELL DISTRIBUTION WIDTH 14.3 % (11.5-14.5); WHITE BLOOD COUNT 8.9 X10'3 (4.5-11.0)
[2020-02-19 13:45] LABS: ALANINE AMINOTRANSFERASE 24 U/L (12-78); ALBUMIN 3.2 G/DL (3.4-5.0); ALBUMIN/GLOBULIN RATIO 0.9 (1.1-1.5); ALKALINE PHOSPHATASE 93 IU/L (46-116); ANION GAP 7 (8-16); ASPARTATE AMINO TRANSFERASE 13 U/L (10-37); BILIRUBIN,TOTAL 0.2 MG/DL (0.1-1.0); BLOOD UREA NITROGEN 21 MG/DL (7-18); BUN/CREATININE RATIO 23.9 (5.4-32.0); CALCIUM 8.5 MG/DL (8.5-10.1); CHLORIDE 103 MMOL/L (99-107); CREATININE 0.88 MG/DL (0.60-1.10); GLUCOSE 122 MG/DL (70-104); POTASSIUM 3.2 MMOL/L (3.5-5.1); SODIUM 143 MMOL/L (135-145); TOTAL CARBON DIOXIDE 32.9 MMOL/L (24-32); TOTAL PROTEIN 6.9 G/DL (6.4-8.2); eGFR > 90 ML/MIN
[2020-02-19] MEDS ORDERED: potassium Cl 20 mEq SR tablet PO STA (14:02)
[2020-02-19] MEDS ORDERED: normal saline 1000ML IV soln IVB ONE (14:15)
[2020-02-19] MEDS ORDERED: levetiracetam-NS 1000mg/100ml 100 ML IV ONE (14:23)
--- NOTE | 2020-02-19 14:48 | NUR ---
pt was given water and po meds, there was no difficulty swolling
--- NOTE | 2020-02-19 15:02 | NUR ---
[facility] called [facility] she stated that pt's medical needs are to much for them to take care of pt and that he cant come back there tonight. [facility] contact is Phillip [phone]. they have his belongings there and will keep them until pt is placed. pa genao and addiction social worker will be notified
--- NOTE | 2020-02-19 15:06 | NUR ---
SS: ENOC SS received t/c from Inna-[employer] Offbearer @ [facility], per t/c pt cannot return to [facility] as his medical needs are outside [facility]'s scope of practice. SS suggests that Inna speak w/ER staff and contact pt's [facility]'s worker as pt was referred to [facility] by [facility]. t/c transferred to ER. No further actions needed. Madison Benjamin, [employer] WET
--- NOTE | 2020-02-19 15:14 | NUR ---
pt was told that [facility] will not take him back and that i called our administrator social welfare to see if we can find a place for the pat to stay. he was homeless before he went to [facility]. pt is very upset and is now refusing his iv keppra.
--- NOTE | 2020-02-19 15:16 | NUR ---
mihir from manager social work called back and she is getting [facility] for more information on pt
--- NOTE | 2020-02-19 15:45 | NUR ---
pt was getting aggitated and wanting to remove his iv himself, we talked to radha genao and he was ready to discharge.
--- NOTE | 2020-02-19 15:47 | NUR ---
manisha linn called and wanted to talk about pt, but he had let already. then [facility] called and said they have a place for him to stay. they will be trying to get ahold of him to let him know
[2020-02-19 15:51] VITALS: BP 120/75
== END 2020-02-19 15:56 | disposition home or self-care (01) ==
LOC: ER 11:32
DX: G40.909 Epilepsy, unspecified, not intractable, without status epilepticus (principal); E87.6 Hypokalemia; Z86.69 Personal history of other diseases of the nervous system and sense organs; Z88.5 Allergy status to narcotic agent; Z91.013 Allergy to seafood; Z91.018 Allergy to other foods; Z79.899 Other long term (current) drug therapy
CPT/HCPCS: 36415; 70450; 72125; 80053; 85025; 93005; 96374; 99285; J2060; J7030; 96361

== ENCOUNTER 2021-05-23 14:27 | Emergency (ER) | payer MEDICAID ==
[~2021-05-23] VITALS: Ht 172.7 cm; Wt 112.7 kg
[~2021-05-23 14:27] MED LIST changes: +ESCI20TA39 PO; -ESCI20TA45 PO; -HYDR50TA3 PO; +HYDR50TA4 PO; -OLAN15TA17 PO; +OLAN15TA35 PO
[2021-05-23] MEDS ORDERED: aspirin 81mg tab.chew PO ONE (14:40)
[2021-05-23] MEDS ORDERED: ipratropium/albuterol 3ml nebule NEB ONE (14:40)
[2021-05-23] MEDS ORDERED: albuterol 2.5 MG/3 ML nebule NEB ONE (14:40)
[2021-05-23] MEDS ORDERED: methylPREDNISolone sod succ 125mg/2ml vial IV ONE ×2 (14:40→15:55)
[2021-05-23 15:02] LABS: BASOPHILS % (AUTO) 0.4 % (0-1); EOSINOPHILS # (AUTO) 0.2 X10'3 (0-0.9); EOSINOPHILS % (AUTO) 2.5 % (0-6); LYMPHOCYTES # (AUTO) 2.3 X10'3 (1.1-4.8); LYMPHOCYTES % (AUTO) 26.9 % (21-51); MEAN PLATELET VOLUME 7.6 FL (7.4-10.4); MONOCYTES # (AUTO) 0.7 X10'3 (0-0.9); MONOCYTES % (AUTO) 8.4 % (2-12); NEUTROPHILS # (AUTO) 5.3 X10'3 (1.8-7.7); NEUTROPHILS % (AUTO) 61.8 % (42-75); RED CELL DISTRIBUTION WIDTH 13.1 % (11.5-14.5); WHITE BLOOD COUNT 8.6 X10'3 (4.5-11.0)
[2021-05-23 15:10] LABS: D-DIMER < 0.19 MG/L FEU (0-0.50)
[2021-05-23 15:14] LABS: ALANINE AMINOTRANSFERASE 37 U/L (12-78); ALBUMIN 3.5 G/DL (3.4-5.0); ALBUMIN/GLOBULIN RATIO 0.9 (1.1-1.5); ALKALINE PHOSPHATASE 168 IU/L (46-116); ANION GAP 7 (8-16); ASPARTATE AMINO TRANSFERASE 24 U/L (10-37); BILIRUBIN,TOTAL 0.2 MG/DL (0.1-1.0); BLOOD UREA NITROGEN 17 MG/DL (7-18); BUN/CREATININE RATIO 24.3 (5.4-32.0); CALCIUM 8.1 MG/DL (8.5-10.1); CHLORIDE 100 MMOL/L (99-107); POTASSIUM 3.3 MMOL/L (3.5-5.1); SODIUM 138 MMOL/L (135-145); TOTAL CARBON DIOXIDE 31.4 MMOL/L (24-32); TOTAL PROTEIN 7.3 G/DL (6.4-8.2); eGFR > 90 ML/MIN
[2021-05-23 15:18] LABS: MAGNESIUM 2.2 MG/DL (1.5-2.4)
[2021-05-23 15:20] LABS: GLUCOSE 179 MG/DL (70-104)
[2021-05-23 15:30] LABS: HEMATOCRIT 47.4 % (42.0-52.0); HEMOGLOBIN 16.8 g/dl (14.0-17.9); MEAN CORPUSCULAR HEMOGLOBIN 35.2 PG (27.0-31.0); MEAN CORPUSCULAR HGB CONC 35.5 g/dL (33.0-36.5); MEAN CORPUSCULAR VOLUME 99.4 FL (78-98); RED BLOOD COUNT 4.77 X10'6 (4.70-6.10)
[2021-05-23 15:31] LABS: PLATELET COUNT 249 X10'3 (140-440)
[2021-05-23] MEDS ORDERED: albuterol 2.5 MG/3 ML nebule CONTNEB PRN (15:55)
--- NOTE | 2021-05-23 16:25 | NUR ---
per DR Bailey, 2nd order for solumedrol is a duplicate order, only 1 dose needed
[2021-05-23 17:10] VITALS: BP 116/78
== END 2021-05-23 17:51 | disposition home or self-care (01) ==
LOC: ER 14:27
DX: R07.89 Other chest pain (principal); J44.1 Chronic obstructive pulmonary disease with (acute) exacerbation; I95.9 Hypotension, unspecified; G40.909 Epilepsy, unspecified, not intractable, without status epilepticus; Z91.018 Allergy to other foods; Z91.013 Allergy to seafood; Z91.030 Bee allergy status; Z88.8 Allergy status to other drugs, medicaments and biological substances; Z79.899 Other long term (current) drug therapy
CPT/HCPCS: 36415; 71045; 80053; 83735; 83880; 84484; 85025; 85379; 93005; 94644; 96374; 99285; J2930; 94640; 94760; A7015

== ENCOUNTER 2021-07-23 22:51 | Emergency (ER) | payer MEDICAID ==
[~2021-07-23] VITALS: Ht 167.6 cm; Wt 135.9 kg
[2021-07-23 23:22] LABS: BASOPHILS % (AUTO) 0.4 % (0-1); EOSINOPHILS # (AUTO) 0.2 X10'3 (0-0.9); EOSINOPHILS % (AUTO) 2.6 % (0-6); HEMATOCRIT 44.9 % (42.0-52.0); HEMOGLOBIN 15.5 g/dl (14.0-17.9); LYMPHOCYTES # (AUTO) 2.4 X10'3 (1.1-4.8); LYMPHOCYTES % (AUTO) 32.1 % (21-51); MEAN CORPUSCULAR HEMOGLOBIN 33.5 PG (27.0-31.0); MEAN CORPUSCULAR HGB CONC 34.5 g/dL (33.0-36.5); MEAN CORPUSCULAR VOLUME 97.2 FL (78-98); MEAN PLATELET VOLUME 7.2 FL (7.4-10.4); MONOCYTES # (AUTO) 0.8 X10'3 (0-0.9); MONOCYTES % (AUTO) 10.4 % (2-12); NEUTROPHILS % (AUTO) 54.5 % (42-75); PLATELET COUNT 236 X10'3 (140-440); RED BLOOD COUNT 4.62 X10'6 (4.70-6.10); RED CELL DISTRIBUTION WIDTH 13.3 % (11.5-14.5); WHITE BLOOD COUNT 7.4 X10'3 (4.5-11.0)
[2021-07-23 23:41] LABS: ALANINE AMINOTRANSFERASE 29 U/L (12-78); ALBUMIN 3.4 G/DL (3.4-5.0); ALBUMIN/GLOBULIN RATIO 0.9 (1.1-1.5); ALKALINE PHOSPHATASE 140 IU/L (46-116); ANION GAP 7 (8-16); ASPARTATE AMINO TRANSFERASE 15 U/L (10-37); BILIRUBIN,TOTAL 0.2 MG/DL (0.1-1.0); BLOOD UREA NITROGEN 14 MG/DL (7-18); BUN/CREATININE RATIO 17.1 (5.4-32.0); CALCIUM 8.8 MG/DL (8.5-10.1); CHLORIDE 102 MMOL/L (99-107); CREATININE 0.82 MG/DL (0.60-1.10); GLUCOSE 123 MG/DL (70-104); POTASSIUM 3.5 MMOL/L (3.5-5.1); SODIUM 139 MMOL/L (135-145); TOTAL CARBON DIOXIDE 30.4 MMOL/L (24-32); TOTAL PROTEIN 7.1 G/DL (6.4-8.2); eGFR > 90 ML/MIN
[2021-07-24] MEDS ORDERED: ipratropium/albuterol 3ml nebule NEB ONE (00:30)
[2021-07-24] MEDS ORDERED: methylPREDNISolone sod succ 125mg/2ml vial IV ONE (00:30)
[2021-07-24] MEDS ORDERED: prednisone 10mg tablet PO ONE (00:35)
[2021-07-24] MEDS ORDERED: predniSONE 20 mg tablet PO SCH (01:10)
--- NOTE | 2021-07-24 01:13 | NUR ---
po med given
[2021-07-24] MEDS ORDERED: bisacodyl 5mg tablet.DR PO ONE (01:15)
[2021-07-24] MEDS ORDERED: PRED20TA PO (01:17)
[2021-07-24] MEDS ORDERED: AZIT-83 PO (01:17)
[2021-07-24] MEDS ORDERED: BISA-78 PO (01:17)
[2021-07-24] MEDS ORDERED: POLY119P2 PO (01:17)
[2021-07-24 02:06] VITALS: BP 116/86
== END 2021-07-24 02:07 | disposition home or self-care (01) ==
LOC: ER 22:51
DX: J44.1 Chronic obstructive pulmonary disease with (acute) exacerbation (principal); Z91.013 Allergy to seafood; Z91.018 Allergy to other foods; Z91.030 Bee allergy status; Z88.8 Allergy status to other drugs, medicaments and biological substances; Z79.899 Other long term (current) drug therapy
CPT/HCPCS: 36415; 71045; 80053; 83880; 84484; 85025; 93005; 94640; 99285; J7512; 94760

== ENCOUNTER 2021-08-21 11:47 | Emergency (ER) | payer MEDICAID ==
[~2021-08-21] VITALS: Ht 167.6 cm; Wt 136.4 kg
[~2021-08-21 11:47] MED LIST changes: +BISA-78 PO; +POLY119P2 PO
--- NOTE | 2021-08-21 13:45 | NUR ---
PT NOT WILLING TO TALK TO ME. ONLY ANSWERING A FEW QUESTIONS. HE IS VISIBLY UPSET, BITING AND SCRATCHING HIS ARM.
--- NOTE | 2021-08-21 13:46 | NUR ---
CONTACTED PT HOME AND I WAS TOLD SOMEONE FROM ADMIN SHOULD RESPOND SOON.
--- NOTE | 2021-08-21 13:47 | NUR ---
TRIED TO CONTACT [facility], LEFT MESSAGE TO RETURN CALL.
[2021-08-21 14:13] LABS: BASOPHILS % (AUTO) 0.5 % (0-1); EOSINOPHILS # (AUTO) 0.2 X10'3 (0-0.9); EOSINOPHILS % (AUTO) 2.7 % (0-6); HEMATOCRIT 46.8 % (42.0-52.0); HEMOGLOBIN 16.1 g/dl (14.0-17.9); LYMPHOCYTES # (AUTO) 2.1 X10'3 (1.1-4.8); LYMPHOCYTES % (AUTO) 29.5 % (21-51); MEAN CORPUSCULAR HEMOGLOBIN 33.7 PG (27.0-31.0); MEAN CORPUSCULAR HGB CONC 34.3 g/dL (33.0-36.5); MEAN PLATELET VOLUME 7.7 FL (7.4-10.4); MONOCYTES # (AUTO) 0.6 X10'3 (0-0.9); NEUTROPHILS # (AUTO) 4.1 X10'3 (1.8-7.7); NEUTROPHILS % (AUTO) 58.3 % (42-75); PLATELET COUNT 245 X10'3 (140-440); RED BLOOD COUNT 4.78 X10'6 (4.70-6.10); RED CELL DISTRIBUTION WIDTH 13.2 % (11.5-14.5)
[2021-08-21 14:21] LABS: ALANINE AMINOTRANSFERASE 30 U/L (12-78); ALBUMIN 3.3 G/DL (3.4-5.0); ALBUMIN/GLOBULIN RATIO 0.8 (1.1-1.5); ALKALINE PHOSPHATASE 150 IU/L (46-116); ANION GAP 7 (8-16); ASPARTATE AMINO TRANSFERASE 20 U/L (10-37); BILIRUBIN,TOTAL 0.2 MG/DL (0.1-1.0); BLOOD UREA NITROGEN 20 MG/DL (7-18); CALCIUM 8.9 MG/DL (8.5-10.1); CHLORIDE 103 MMOL/L (99-107); GLUCOSE 124 MG/DL (70-104); SODIUM 142 MMOL/L (135-145); TOTAL CARBON DIOXIDE 31.7 MMOL/L (24-32); TOTAL PROTEIN 7.3 G/DL (6.4-8.2); eGFR > 90 ML/MIN
[2021-08-21 14:25] LABS: POTASSIUM 3.8 MMOL/L (3.5-5.1)
[2021-08-21 14:31] LABS: ETHANOL < 0.010 GM/DL (0.0-0.010)
[2021-08-21 16:09] LABS: URINE AMPHETAMINE SCREEN NEGATIVE (Neg); URINE BARBITUATE SCREEN NEGATIVE (Neg); URINE BENZODIAZEPINES SCREEN NEGATIVE (Neg); URINE CANNABINOID SCREEN NEGATIVE (Neg); URINE COCAINE SCREEN NEGATIVE (Neg); URINE METHADONE SCREEN NEGATIVE (Neg); URINE OPIATE SCREEN NEGATIVE (Neg); URINE PHENCYCLIDINE SCREEN NEGATIVE (Neg)
[2021-08-21 16:10] LABS: CLARITY,URINE CLEAR (Clear); COLOR,URINE YELLOW (Yellow); GLUCOSE, URINE NEGATIVE (Neg); KETONES,URINE NEGATIVE (Neg); LEUKOCYTE ESTERASE ,URINE NEGATIVE (Neg); NITRITES, URINE NEGATIVE (Neg); OCCULT BLOOD,URINE NEGATIVE (Neg); PROTEIN,URINE NEGATIVE (Neg); UROBILINOGEN,URINE 0.2 E.U/dL (0.2-1.0)
[2021-08-21 16:12] LABS: UA COLLECTION TYPE VOIDED
--- NOTE | 2021-08-21 18:42 | NUR ---
Caregiver is Asren Sol.
[2021-08-21] MEDS ORDERED: ALB0.5UD IH (19:40)
[2021-08-21] MEDS ORDERED: PANT-47 PO (19:42)
[2021-08-21] MEDS ORDERED: CARB200T PO (19:42)
[2021-08-21] MEDS ORDERED: LEVE10002 PO (19:43)
[2021-08-21] MEDS ORDERED: FLUT1DIS INH (19:50)
[2021-08-21] MEDS ORDERED: HYDR50TA4 PO (19:51)
[2021-08-21] MEDS ORDERED: LORA10TA7 PO (19:52)
[2021-08-21] MEDS ORDERED: temazepam 15mg capsule PO ONE (20:25)
[2021-08-21] MEDS ORDERED: hydrOXYzine 25 MG tablet PO ONE (20:25)
[2021-08-21] MEDS ORDERED: albuterol 2.5 MG/3 ML nebule NEB PRN (20:50)
[2021-08-21] MEDS ORDERED: FLUTICASONE INH SCH (21:00)
[2021-08-21] MEDS ORDERED: SALMETEROL INH SCH (21:00)
--- NOTE | 2021-08-21 21:49 | NUR ---
BREAKING PRIMARY RN. PT LAYING ON HIS BACK. EQUAL RISE AND FALL OF CHEST.
--- NOTE | 2021-08-21 22:22 | NUR ---
Patient is sleeping in a mid fowlers position.
--- NOTE | 2021-08-21 23:00 | NUR ---
Patient sleeps on his left side. No distress.
--- NOTE | 2021-08-22 01:00 | NUR ---
Patient awakens, up to bathroom with assist, then back to bed.
[2021-08-22] MEDS: carBAMazepine 100mg chewable tablet PO SCH ×2 (02:44→08:07)
--- NOTE | 2021-08-22 04:30 | NUR ---
Patient has been evaluated by RT. He has since returned to sleep.
--- NOTE | 2021-08-22 04:34 | NUR ---
Patient was awake, he was given Tegratol. Patient returned to sleep.
--- NOTE | 2021-08-22 06:30 | NUR ---
pt sitting up in bed cleaning up his tray table in no distress
[2021-08-22] MEDS ORDERED: albuterol 2.5 MG/3 ML nebule NEB SCH (08:00)
[2021-08-22] MEDS ORDERED: loratadine 10mg tablet PO SCH (08:00)
[2021-08-22] MEDS ORDERED: levetiracetam 250mg tablet PO SCH (08:00)
[2021-08-22] MEDS ORDERED: pantoprazole 40mg Tablet.DR PO SCH (08:00)
[2021-08-22] MEDS ORDERED: HYDROchlorothiazide 25mg tablet PO SCH (08:00)
[2021-08-22] MEDS ORDERED: budesonide 0.5mg/2ml UD nebule IH SCH (08:00)
--- NOTE | 2021-08-22 09:28 | NUR ---
packet faxed to [facility]
[2021-08-22] MEDS ORDERED: ibuprofen 200mg tablet PO ONE (10:30)
--- NOTE | 2021-08-22 11:57 | NUR ---
PT WITH [facility]
[2021-08-22 12:33] VITALS: BP 92/54
== END 2021-08-22 12:37 | disposition home or self-care (01) ==
LOC: ER 11:48
DX: R45.851 Suicidal ideations (principal); Z20.822 Contact with and (suspected) exposure to COVID-19; F31.9 Bipolar disorder, unspecified; J45.909 Unspecified asthma, uncomplicated; Z88.5 Allergy status to narcotic agent; Z91.018 Allergy to other foods; Z91.013 Allergy to seafood; Z79.899 Other long term (current) drug therapy
CPT/HCPCS: 36415; 80053; 80305; 80320; 81003; 84443; 85025; 87811; 93005; 94640; 99285; Q0177; 94760

== ENCOUNTER 2021-08-31 19:03 | Emergency (ER) | payer MEDICAID ==
[~2021-08-31] VITALS: Ht 172.7 cm; Wt 135.9 kg
[~2021-08-31 19:03] MED LIST changes: -ADV50100 IH; -ATI1T PO; -BENZ1TAB7 PO; -BISA-78 PO; -CARB100T15 PO; +CARB200T PO; -DIVA500T2 PO; -ESCI20TA39 PO; -FLO0.4C PO; +FLUT1DIS INH; -HYDR-3686 PO; -HYDR28.316 RC; +LEVE10002 PO; -LEVE500T PO; -LORA10TA65 PO; +LORA10TA7 PO; -OLAN15TA35 PO; +PANT-47 PO; -PANT40TA54 PO; -POLY119P2 PO; -POTA10TA52 PO; -TEMA15CA5 PO; -TRAZ-251 PO; -UMEC1DIS INH
[2021-08-31] MEDS ORDERED: dexamethasone 4mg tablet PO ONE (21:25)
[2021-08-31] MEDS ORDERED: albuterol 2.5 MG/3 ML nebule NEB ONE (21:25)
[2021-08-31 21:37] LABS: BASOPHILS % (AUTO) 0.5 % (0-1); EOSINOPHILS # (AUTO) 0.2 X10'3 (0-0.9); EOSINOPHILS % (AUTO) 2.1 % (0-6); HEMATOCRIT 43.4 % (42.0-52.0); HEMOGLOBIN 15.7 g/dl (14.0-17.9); LYMPHOCYTES # (AUTO) 2.5 X10'3 (1.1-4.8); LYMPHOCYTES % (AUTO) 26.8 % (21-51); MEAN CORPUSCULAR HEMOGLOBIN 34.8 PG (27.0-31.0); MEAN CORPUSCULAR HGB CONC 36.1 g/dL (33.0-36.5); MEAN CORPUSCULAR VOLUME 96.5 FL (78-98); MEAN PLATELET VOLUME 7.6 FL (7.4-10.4); MONOCYTES # (AUTO) 0.8 X10'3 (0-0.9); MONOCYTES % (AUTO) 8.1 % (2-12); NEUTROPHILS # (AUTO) 5.9 X10'3 (1.8-7.7); NEUTROPHILS % (AUTO) 62.5 % (42-75); PLATELET COUNT 237 X10'3 (140-440); RED CELL DISTRIBUTION WIDTH 12.8 % (11.5-14.5); WHITE BLOOD COUNT 9.4 X10'3 (4.5-11.0)
[2021-08-31 21:52] LABS: ALANINE AMINOTRANSFERASE 33 U/L (12-78); ALBUMIN 3.3 G/DL (3.4-5.0); ALBUMIN/GLOBULIN RATIO 0.8 (1.1-1.5); ALKALINE PHOSPHATASE 157 IU/L (46-116); ANION GAP 4 (8-16); ASPARTATE AMINO TRANSFERASE 15 U/L (10-37); BILIRUBIN,TOTAL 0.2 MG/DL (0.1-1.0); BLOOD UREA NITROGEN 21 MG/DL (7-18); BUN/CREATININE RATIO 25.6 (5.4-32.0); CALCIUM 8.6 MG/DL (8.5-10.1); CHLORIDE 101 MMOL/L (99-107); CREATININE 0.82 MG/DL (0.60-1.10); GLUCOSE 130 MG/DL (70-104); POTASSIUM 3.4 MMOL/L (3.5-5.1); SODIUM 137 MMOL/L (135-145); TOTAL CARBON DIOXIDE 31.8 MMOL/L (24-32); TOTAL PROTEIN 7.3 G/DL (6.4-8.2); eGFR > 90 ML/MIN
[2021-08-31] MEDS ORDERED: traZODone 150mg tablet PO STA (22:44)
[2021-08-31 23:00] LABS: LARGE PLATELETS FEW; PLATELET ESTIMATE NORMAL; TOTAL CELLS COUNTED 100
[2021-08-31 23:01] LABS: ANISOCYTOSIS 1+; TOXIC VACUOLATION 2+
[2021-08-31 23:35] VITALS: BP 125/84
== END 2021-08-31 23:54 | disposition home or self-care (01) ==
LOC: ER 19:04
DX: J44.9 Chronic obstructive pulmonary disease, unspecified (principal); Z91.018 Allergy to other foods; Z79.899 Other long term (current) drug therapy
CPT/HCPCS: 36415; 71045; 80053; 83880; 84484; 85007; 85025; 93005; 94640; 94760; 99285

== ENCOUNTER 2021-12-07 18:19 | Emergency (ER) | payer MEDICAID ==
[~2021-12-07] VITALS: Ht 172.7 cm; Wt 131.8 kg
[2021-12-07 19:57] LABS: PHENYTOIN (DILANTIN) < 0.5 UG/ML (10.0-20.0)
[2021-12-07] MEDS ORDERED: ringers solution, lacted 1,000 ML IV ONE (21:00)
[2021-12-07 21:04] LABS: BASOPHILS % (AUTO) 0.4 % (0-1); EOSINOPHILS # (AUTO) 0.2 X10'3 (0-0.9); EOSINOPHILS % (AUTO) 1.7 % (0-6); HEMATOCRIT 45.7 % (42.0-52.0); HEMOGLOBIN 15.5 g/dl (14.0-17.9); LYMPHOCYTES # (AUTO) 2.4 X10'3 (1.1-4.8); LYMPHOCYTES % (AUTO) 20.3 % (21-51); MEAN CORPUSCULAR HEMOGLOBIN 33.7 PG (27.0-31.0); MEAN CORPUSCULAR HGB CONC 33.9 g/dL (33.0-36.5); MEAN CORPUSCULAR VOLUME 99.2 FL (78-98); MEAN PLATELET VOLUME 8.5 FL (7.4-10.4); MONOCYTES # (AUTO) 0.9 X10'3 (0-0.9); MONOCYTES % (AUTO) 7.6 % (2-12); NEUTROPHILS # (AUTO) 8.2 X10'3 (1.8-7.7); PLATELET COUNT 228 X10'3 (140-440); RED CELL DISTRIBUTION WIDTH 13.2 % (11.5-14.5); WHITE BLOOD COUNT 11.8 X10'3 (4.5-11.0)
[2021-12-07] MEDS ORDERED: LORazepam 2 mg/ml vial IV ONE (21:10)
[2021-12-07 21:11] LABS: ALANINE AMINOTRANSFERASE 28 U/L (12-78); ALBUMIN 3.3 G/DL (3.4-5.0); ALBUMIN/GLOBULIN RATIO 0.8 (1.1-1.5); ALKALINE PHOSPHATASE 152 IU/L (46-116); ANION GAP 13 (8-16); ASPARTATE AMINO TRANSFERASE 22 U/L (10-37); BILIRUBIN,TOTAL 0.4 MG/DL (0.1-1.0); BLOOD UREA NITROGEN 23 MG/DL (7-18); CALCIUM 8.9 MG/DL (8.5-10.1); CHLORIDE 101 MMOL/L (99-107); CREATININE 0.82 MG/DL (0.60-1.10); GLUCOSE 156 MG/DL (70-104); MAGNESIUM 2.1 MG/DL (1.5-2.4); SODIUM 142 MMOL/L (135-145); TOTAL CARBON DIOXIDE 28.2 MMOL/L (24-32); TOTAL PROTEIN 7.2 G/DL (6.4-8.2); eGFR > 90 ML/MIN
[2021-12-07 21:24] LABS: POTASSIUM 3.2 MMOL/L (3.5-5.1)
[2021-12-07] MEDS ORDERED: carBAMazepine 100mg chewable tablet PO ONE (21:25)
[2021-12-07 21:50] VITALS: BP 107/73
== END 2021-12-07 21:53 | disposition home or self-care (01) ==
LOC: ER 18:20
DX: G40.909 Epilepsy, unspecified, not intractable, without status epilepticus (principal); J44.9 Chronic obstructive pulmonary disease, unspecified; K21.9 Gastro-esophageal reflux disease without esophagitis; Z98.890 Other specified postprocedural states; Z91.013 Allergy to seafood; Z91.030 Bee allergy status; Z88.8 Allergy status to other drugs, medicaments and biological substances; Z91.018 Allergy to other foods
CPT/HCPCS: 36415; 80053; 80185; 83735; 85025; 93005; 96374; 99284; J2060; J7120

== ENCOUNTER 2021-12-14 12:44 | Emergency (ER) | payer MEDICAID ==
[~2021-12-14] VITALS: Ht 172.7 cm; Wt 130.0 kg
[2021-12-14 13:00] VITALS: BP 144/92
[2021-12-14 15:02] LABS: BASOPHILS # (AUTO) 0.1 X10'3 (0-0.2); BASOPHILS % (AUTO) 0.6 % (0-1); EOSINOPHILS # (AUTO) 0.2 X10'3 (0-0.9); EOSINOPHILS % (AUTO) 2.5 % (0-6); HEMOGLOBIN 15.9 g/dl (14.0-17.9); LYMPHOCYTES # (AUTO) 2.5 X10'3 (1.1-4.8); LYMPHOCYTES % (AUTO) 27.5 % (21-51); MEAN PLATELET VOLUME 7.2 FL (7.4-10.4); MONOCYTES # (AUTO) 0.8 X10'3 (0-0.9); MONOCYTES % (AUTO) 8.8 % (2-12); NEUTROPHILS # (AUTO) 5.4 X10'3 (1.8-7.7); NEUTROPHILS % (AUTO) 60.6 % (42-75); PLATELET COUNT 239 X10'3 (140-440); RED BLOOD COUNT 4.59 X10'6 (4.70-6.10)
[2021-12-14 15:13] LABS: ALANINE AMINOTRANSFERASE 35 U/L (12-78); ALBUMIN 3.4 G/DL (3.4-5.0); ALBUMIN/GLOBULIN RATIO 0.9 (1.1-1.5); ALKALINE PHOSPHATASE 169 IU/L (46-116); ANION GAP 5 (8-16); ASPARTATE AMINO TRANSFERASE 20 U/L (10-37); BILIRUBIN,TOTAL 0.2 MG/DL (0.1-1.0); BLOOD UREA NITROGEN 21 MG/DL (7-18); BUN/CREATININE RATIO 26.3 (5.4-32.0); CALCIUM 9.2 MG/DL (8.5-10.1); CHLORIDE 100 MMOL/L (99-107); GLUCOSE 117 MG/DL (70-104); POTASSIUM 3.8 MMOL/L (3.5-5.1); SODIUM 138 MMOL/L (135-145); TOTAL CARBON DIOXIDE 33.2 MMOL/L (24-32); TOTAL PROTEIN 7.4 G/DL (6.4-8.2); eGFR > 90 ML/MIN
[2021-12-14 15:23] LABS: HEMATOCRIT 45.5 % (42.0-52.0); MEAN CORPUSCULAR HEMOGLOBIN 34.8 PG (27.0-31.0); MEAN CORPUSCULAR VOLUME 99.4 FL (78-98); WHITE BLOOD COUNT 8.1 X10'3 (4.5-11.0)
== END 2021-12-14 15:43 | disposition home or self-care (01) ==
LOC: ER 12:45
DX: R07.89 Other chest pain (principal); J44.9 Chronic obstructive pulmonary disease, unspecified; K21.9 Gastro-esophageal reflux disease without esophagitis; F31.9 Bipolar disorder, unspecified; Z86.69 Personal history of other diseases of the nervous system and sense organs; Z98.890 Other specified postprocedural states; Z91.013 Allergy to seafood; Z88.5 Allergy status to narcotic agent; Z88.8 Allergy status to other drugs, medicaments and biological substances; Z79.899 Other long term (current) drug therapy
CPT/HCPCS: 36415; 71046; 80053; 84484; 85025; 93005; 99285

== ENCOUNTER 2022-05-05 01:37 | Emergency (ER) | payer MEDICAID ==
[~2022-05-05] VITALS: Ht 170.2 cm; Wt 100.0 kg
[2022-05-05 02:02] LABS: BASOPHILS % (AUTO) 0.4 % (0-1); EOSINOPHILS # (AUTO) 0.2 X10'3 (0-0.9); EOSINOPHILS % (AUTO) 2.5 % (0-6); HEMATOCRIT 43.4 % (42.0-52.0); HEMOGLOBIN 15.2 g/dl (14.0-17.9); LYMPHOCYTES # (AUTO) 2.4 X10'3 (1.1-4.8); LYMPHOCYTES % (AUTO) 31.7 % (21-51); MEAN CORPUSCULAR HEMOGLOBIN 34.7 PG (27.0-31.0); MEAN CORPUSCULAR HGB CONC 34.9 g/dL (33.0-36.5); MEAN CORPUSCULAR VOLUME 99.3 FL (78-98); MEAN PLATELET VOLUME 7.3 FL (7.4-10.4); MONOCYTES # (AUTO) 0.8 X10'3 (0-0.9); MONOCYTES % (AUTO) 10.6 % (2-12); NEUTROPHILS # (AUTO) 4.1 X10'3 (1.8-7.7); NEUTROPHILS % (AUTO) 54.8 % (42-75); PLATELET COUNT 235 X10'3 (140-440); RED BLOOD COUNT 4.37 X10'6 (4.70-6.10); RED CELL DISTRIBUTION WIDTH 13.1 % (11.5-14.5); WHITE BLOOD COUNT 7.5 X10'3 (4.5-11.0)
[2022-05-05] MEDS ORDERED: levetiracetam 250mg tablet PO ONE (02:10)
[2022-05-05] MEDS ORDERED: carBAMazepine 100mg chewable tablet PO ONE (02:10)
[2022-05-05 02:27] LABS: ALANINE AMINOTRANSFERASE 23 U/L (12-78); ALBUMIN 3.1 G/DL (3.4-5.0); ALBUMIN/GLOBULIN RATIO 0.9 (1.1-1.5); ALKALINE PHOSPHATASE 149 IU/L (46-116); ANION GAP 5 (8-16); ASPARTATE AMINO TRANSFERASE 16 U/L (10-37); BILIRUBIN,TOTAL 0.2 MG/DL (0.1-1.0); BLOOD UREA NITROGEN 21 MG/DL (7-18); BUN/CREATININE RATIO 23.3 (5.4-32.0); CALCIUM 8.4 MG/DL (8.5-10.1); CHLORIDE 103 MMOL/L (99-107); ETHANOL < 0.010 GM/DL (0.0-0.010); GLUCOSE 151 MG/DL (70-104); POTASSIUM 3.8 MMOL/L (3.5-5.1); SODIUM 142 MMOL/L (135-145); TOTAL CARBON DIOXIDE 33.7 MMOL/L (24-32); TOTAL PROTEIN 6.7 G/DL (6.4-8.2); eGFR 89 ML/MIN
[2022-05-05 02:30] LABS: PHENYTOIN (DILANTIN) < 0.5 UG/ML (10.0-20.0)
[2022-05-05 03:15] VITALS: BP 135/83
== END 2022-05-05 03:17 | disposition home or self-care (01) ==
LOC: ER 01:38
DX: R56.9 Unspecified convulsions (principal); I10 Essential (primary) hypertension; F31.9 Bipolar disorder, unspecified; K21.9 Gastro-esophageal reflux disease without esophagitis; J44.9 Chronic obstructive pulmonary disease, unspecified; Z91.013 Allergy to seafood; Z91.018 Allergy to other foods; Z79.899 Other long term (current) drug therapy; Z79.1 Long term (current) use of non-steroidal anti-inflammatories (NSAID); Z79.2 Long term (current) use of antibiotics
CPT/HCPCS: 36415; 71045; 80053; 80156; 80185; 80320; 85025; 93005; 99285; A4615

== ENCOUNTER 2022-07-06 11:48 | Emergency (ER) | payer MEDICAID ==
[~2022-07-06] VITALS: Ht 172.7 cm; Wt 135.3 kg
[2022-07-06 12:02] VITALS: BP 158/98
== END 2022-07-06 14:08 | disposition home or self-care (01) ==
LOC: ER 11:49
DX: S06.0X9A Concussion with loss of consciousness of unspecified duration, initial encounter (principal); E78.00 Pure hypercholesterolemia, unspecified; I10 Essential (primary) hypertension; J44.9 Chronic obstructive pulmonary disease, unspecified; K21.9 Gastro-esophageal reflux disease without esophagitis; M19.90 Unspecified osteoarthritis, unspecified site; F31.9 Bipolar disorder, unspecified; Z91.013 Allergy to seafood; Z91.018 Allergy to other foods; Z91.030 Bee allergy status; Z88.5 Allergy status to narcotic agent
CPT/HCPCS: 70450; 99284

== ENCOUNTER 2022-09-15 17:20 | Emergency (ER) | payer MEDICAID ==
[~2022-09-15] VITALS: Ht 172.7 cm; Wt 105.9 kg
[~2022-09-15 17:20] MED LIST changes: +ADV50500 PO; +ALPR1TAB2 PO; +AMOX-419 PO; +FAMO40TA8 PO; -FLUT1DIS INH; +HYDR25TA4 PO; -HYDR50TA4 PO; +IBUP-1986 PO; +IPRA3AMP9 NEB; -LEVE10002 PO; +LEVE10006 PO; +METF-1203 PO
[2022-09-15 17:35] VITALS: BP 125/58; PULSE 90; TEMP 98.2; O2SAT 95
[2022-09-15 17:57] LABS: BASOPHILS % (AUTO) 0.2 % (0-1); EOSINOPHILS # (AUTO) 0.1 X10'3 (0-0.9); EOSINOPHILS % (AUTO) 1.4 % (0-6); HEMOGLOBIN 14.1 g/dl (14.0-17.9); LYMPHOCYTES # (AUTO) 2.7 X10'3 (1.1-4.8); LYMPHOCYTES % (AUTO) 28.5 % (21-51); MEAN CORPUSCULAR HEMOGLOBIN 34.4 PG (27.0-31.0); MEAN CORPUSCULAR HGB CONC 34.3 g/dL (33.0-36.5); MEAN CORPUSCULAR VOLUME 100.1 FL (78-98); MEAN PLATELET VOLUME 7.3 FL (7.4-10.4); MONOCYTES # (AUTO) 0.8 X10'3 (0-0.9); MONOCYTES % (AUTO) 8.8 % (2-12); NEUTROPHILS # (AUTO) 5.9 X10'3 (1.8-7.7); NEUTROPHILS % (AUTO) 61.1 % (42-75); PLATELET COUNT 212 X10'3 (140-440); RED BLOOD COUNT 4.09 X10'6 (4.70-6.10); RED CELL DISTRIBUTION WIDTH 13.3 % (11.5-14.5); WHITE BLOOD COUNT 9.6 X10'3 (4.5-11.0)
[2022-09-15 18:12] LABS: ALANINE AMINOTRANSFERASE 29 U/L (12-78); ALBUMIN 2.9 G/DL (3.4-5.0); ALBUMIN/GLOBULIN RATIO 0.9 (1.1-1.5); ALKALINE PHOSPHATASE 130 IU/L (46-116); ANION GAP 6 (8-16); ASPARTATE AMINO TRANSFERASE 15 U/L (10-37); BILIRUBIN,TOTAL 0.1 MG/DL (0.1-1.0); BLOOD UREA NITROGEN 29 MG/DL (7-18); BUN/CREATININE RATIO 34.9 (10.0-20.0); CALCIUM 8.6 MG/DL (8.5-10.1); CHLORIDE 99 MMOL/L (99-107); CREATININE 0.83 MG/DL (0.60-1.10); GLUCOSE 221 MG/DL (70-104); MAGNESIUM 1.9 MG/DL (1.5-2.4); POTASSIUM 3.2 MMOL/L (3.5-5.1); SODIUM 139 MMOL/L (135-145); TOTAL CARBON DIOXIDE 33.8 MMOL/L (24-32); TOTAL PROTEIN 6.2 G/DL (6.4-8.2); eGFR > 90 ML/MIN
[2022-09-15 19:13] LABS: CLARITY,URINE CLEAR (Clear); COLOR,URINE YELLOW (Yellow); GLUCOSE, URINE 100 mg/dl (Neg); KETONES,URINE NEGATIVE (Neg); LEUKOCYTE ESTERASE ,URINE NEGATIVE (Neg); NITRITES, URINE NEGATIVE (Neg); OCCULT BLOOD,URINE NEGATIVE (Neg); PROTEIN,URINE NEGATIVE (Neg); UROBILINOGEN,URINE 0.2 E.U/dL (0.2-1.0)
[2022-09-15 19:18] LABS: UA COLLECTION TYPE URINAL
--- NOTE | 2022-09-15 19:27 | NUR ---
pt to ct with tech
[2022-09-15 19:47] VITALS: RESP 22
--- NOTE | 2022-09-15 20:43 | NUR ---
iv dc'd pt being discharged dressing applied
== END 2022-09-15 20:47 | disposition home or self-care (01) ==
LOC: ER 17:21
DX: J44.9 Chronic obstructive pulmonary disease, unspecified (principal); Z20.822 Contact with and (suspected) exposure to COVID-19; E66.01 Morbid (severe) obesity due to excess calories; E78.00 Pure hypercholesterolemia, unspecified; I10 Essential (primary) hypertension; M19.90 Unspecified osteoarthritis, unspecified site; F17.200 Nicotine dependence, unspecified, uncomplicated; Z79.2 Long term (current) use of antibiotics; Z79.899 Other long term (current) drug therapy; Z91.013 Allergy to seafood; Z91.030 Bee allergy status; Z91.018 Allergy to other foods; Z88.8 Allergy status to other drugs, medicaments and biological substances; Z68.35 Body mass index [BMI] 35.0-35.9, adult
CPT/HCPCS: 36415; 71045; 80053; 81003; 83605; 83735; 83880; 84145; 85025; 87040; 87811; 93005; 99285

== ENCOUNTER 2022-09-18 22:12 | Emergency (ER) | payer MEDICAID ==
[~2022-09-18] VITALS: Ht 167.6 cm; Wt 129.6 kg
[2022-09-18 22:19] VITALS: TEMP 98.4
[2022-09-18] MEDS ORDERED: levetiracetam inj 1,000 MG in normal saline 100ml IV soln 90 ML IV STA (22:56)
[2022-09-18] MEDS ORDERED: levetiracetam inj 1,000 MG in normal saline 100ml IV soln 100 ML IV STA (23:00)
[2022-09-18] MEDS ORDERED: normal saline 1000ML IV soln IVB ONE (23:00)
[2022-09-19 00:05] LABS: EOSINOPHILS # (AUTO) 0.2 X10'3 (0-0.9); EOSINOPHILS % (AUTO) 1.9 % (0-6); MEAN CORPUSCULAR HEMOGLOBIN 34.3 PG (27.0-31.0)
[2022-09-19 00:06] LABS: BASOPHILS # (AUTO) 0.1 X10'3 (0-0.2); BASOPHILS % (AUTO) 0.6 % (0-1); HEMATOCRIT 42.4 % (42.0-52.0); HEMOGLOBIN 14.6 g/dl (14.0-17.9); LYMPHOCYTES # (AUTO) 2.6 X10'3 (1.1-4.8); LYMPHOCYTES % (AUTO) 28.4 % (21-51); MEAN CORPUSCULAR HGB CONC 34.4 g/dL (33.0-36.5); MEAN CORPUSCULAR VOLUME 99.9 FL (78-98); MONOCYTES # (AUTO) 0.7 X10'3 (0-0.9); MONOCYTES % (AUTO) 7.7 % (2-12); NEUTROPHILS # (AUTO) 5.6 X10'3 (1.8-7.7); NEUTROPHILS % (AUTO) 61.4 % (42-75); PLATELET COUNT 235 X10'3 (140-440); RED BLOOD COUNT 4.25 X10'6 (4.70-6.10); RED CELL DISTRIBUTION WIDTH 13.6 % (11.5-14.5); WHITE BLOOD COUNT 9.2 X10'3 (4.5-11.0)
[2022-09-19 00:07] LABS: ALANINE AMINOTRANSFERASE 30 U/L (12-78); ALBUMIN/GLOBULIN RATIO 0.8 (1.1-1.5); ALKALINE PHOSPHATASE 139 IU/L (46-116); ANION GAP 7 (8-16); ASPARTATE AMINO TRANSFERASE 14 U/L (10-37); BILIRUBIN,TOTAL 0.2 MG/DL (0.1-1.0); BLOOD UREA NITROGEN 25 MG/DL (7-18); BUN/CREATININE RATIO 30.9 (10.0-20.0); CALCIUM 9.1 MG/DL (8.5-10.1); CHLORIDE 98 MMOL/L (99-107); CREATINE KINASE 72 U/L (39-308); CREATININE 0.81 MG/DL (0.60-1.10); GLUCOSE 226 MG/DL (70-104); POTASSIUM 3.6 MMOL/L (3.5-5.1); SODIUM 137 MMOL/L (135-145); TOTAL CARBON DIOXIDE 32.1 MMOL/L (24-32); TOTAL PROTEIN 6.7 G/DL (6.4-8.2); eGFR > 90 ML/MIN
[2022-09-19 01:03] VITALS: BP 108/68; PULSE 88; RESP 16; O2SAT 94
== END 2022-09-19 00:48 | disposition home or self-care (01) ==
LOC: ER 22:13
DX: G40.909 Epilepsy, unspecified, not intractable, without status epilepticus (principal); E78.00 Pure hypercholesterolemia, unspecified; I10 Essential (primary) hypertension; J44.9 Chronic obstructive pulmonary disease, unspecified; K21.9 Gastro-esophageal reflux disease without esophagitis; F31.9 Bipolar disorder, unspecified; Z91.013 Allergy to seafood; Z91.018 Allergy to other foods; Z79.899 Other long term (current) drug therapy; Z91.030 Bee allergy status; Z88.5 Allergy status to narcotic agent
CPT/HCPCS: 36415; 80053; 82550; 85025; 96365; 99284; J1953; J3490; J7030

== ENCOUNTER 2022-10-01 05:43 | Emergency (ER) | payer MEDICAID ==
[~2022-10-01] VITALS: Ht 172.7 cm; Wt 105.9 kg
[2022-10-01 05:45] VITALS: TEMP 97.7
[2022-10-01 08:57] LABS: BASOPHILS # (AUTO) 0.1 X10'3 (0-0.2); BASOPHILS % (AUTO) 0.8 % (0-1); EOSINOPHILS # (AUTO) 0.2 X10'3 (0-0.9); EOSINOPHILS % (AUTO) 2.2 % (0-6); HEMOGLOBIN 16.1 g/dl (14.0-17.9); LYMPHOCYTES % (AUTO) 25.9 % (21-51); MEAN CORPUSCULAR HEMOGLOBIN 34.1 PG (27.0-31.0); MEAN CORPUSCULAR HGB CONC 34.3 g/dL (33.0-36.5); MEAN CORPUSCULAR VOLUME 99.4 FL (78-98); MEAN PLATELET VOLUME 7.7 FL (7.4-10.4); MONOCYTES # (AUTO) 0.6 X10'3 (0-0.9); MONOCYTES % (AUTO) 7.8 % (2-12); NEUTROPHILS % (AUTO) 63.3 % (42-75); PLATELET COUNT 259 X10'3 (140-440); RED BLOOD COUNT 4.73 X10'6 (4.70-6.10); RED CELL DISTRIBUTION WIDTH 13.3 % (11.5-14.5); WHITE BLOOD COUNT 7.9 X10'3 (4.5-11.0)
[2022-10-01 09:05] LABS: PROTHROMBIN TIME 9.9 SECONDS (9.0-12.0)
[2022-10-01 09:11] LABS: ANION GAP 8 (8-16); CHLORIDE 97 MMOL/L (99-107); GLUCOSE 154 MG/DL (70-104); POTASSIUM 3.6 MMOL/L (3.5-5.1); SODIUM 138 MMOL/L (135-145); TOTAL CARBON DIOXIDE 32.8 MMOL/L (24-32)
[2022-10-01 09:12] LABS: ALANINE AMINOTRANSFERASE 30 U/L (12-78); ALBUMIN 3.4 G/DL (3.4-5.0); ALBUMIN/GLOBULIN RATIO 0.8 (1.1-1.5); ALKALINE PHOSPHATASE 168 IU/L (46-116); ASPARTATE AMINO TRANSFERASE 15 U/L (10-37); BILIRUBIN,TOTAL 0.3 MG/DL (0.1-1.0); BLOOD UREA NITROGEN 21 MG/DL (7-18); BUN/CREATININE RATIO 26.3 (10.0-20.0); CALCIUM 9.1 MG/DL (8.5-10.1); TOTAL PROTEIN 7.6 G/DL (6.4-8.2); eCRCL 106 ML/MIN; eGFR > 90 ML/MIN
[2022-10-01 09:28] LABS: INR 0.9 INR
[2022-10-01 09:40] VITALS: BP 121/89; PULSE 97; RESP 13; O2SAT 94
== END 2022-10-01 10:22 | disposition home or self-care (01) ==
LOC: ER 05:43
DX: R42 Dizziness and giddiness (principal); I10 Essential (primary) hypertension; E78.00 Pure hypercholesterolemia, unspecified; J44.9 Chronic obstructive pulmonary disease, unspecified; K21.9 Gastro-esophageal reflux disease without esophagitis; M19.90 Unspecified osteoarthritis, unspecified site; F31.9 Bipolar disorder, unspecified; Z91.013 Allergy to seafood; Z91.030 Bee allergy status; Z91.018 Allergy to other foods; Z88.5 Allergy status to narcotic agent; Z79.2 Long term (current) use of antibiotics; Z79.899 Other long term (current) drug therapy
CPT/HCPCS: 36415; 70450; 80053; 85025; 85610; 93005; 99284

== ENCOUNTER 2022-10-28 21:14 | Emergency (ER) | payer MEDICAID ==
[~2022-10-28] VITALS: Ht 167.6 cm; Wt 130.0 kg
[2022-10-28 21:41] LABS: BASOPHILS # (AUTO) 0.1 X10'3 (0-0.2); BASOPHILS % (AUTO) 0.5 % (0-1); EOSINOPHILS # (AUTO) 0.2 X10'3 (0-0.9); EOSINOPHILS % (AUTO) 1.7 % (0-6); HEMATOCRIT 44.8 % (42.0-52.0); HEMOGLOBIN 15.7 g/dl (14.0-17.9); LYMPHOCYTES # (AUTO) 2.5 X10'3 (1.1-4.8); LYMPHOCYTES % (AUTO) 24.9 % (21-51); MEAN CORPUSCULAR HEMOGLOBIN 34.5 PG (27.0-31.0); MEAN CORPUSCULAR VOLUME 98.6 FL (78-98); MONOCYTES # (AUTO) 0.8 X10'3 (0-0.9); MONOCYTES % (AUTO) 7.7 % (2-12); NEUTROPHILS # (AUTO) 6.6 X10'3 (1.8-7.7); NEUTROPHILS % (AUTO) 65.2 % (42-75); PLATELET COUNT 247 X10'3 (140-440); RED BLOOD COUNT 4.54 X10'6 (4.70-6.10); RED CELL DISTRIBUTION WIDTH 13.6 % (11.5-14.5); WHITE BLOOD COUNT 10.1 X10'3 (4.5-11.0)
[2022-10-28 21:53] LABS: ALANINE AMINOTRANSFERASE 29 U/L (12-78); ALBUMIN 3.6 G/DL (3.4-5.0); ALBUMIN/GLOBULIN RATIO 0.9 (1.1-1.5); ALKALINE PHOSPHATASE 161 IU/L (46-116); ANION GAP 6 (8-16); ASPARTATE AMINO TRANSFERASE 14 U/L (10-37); BILIRUBIN,TOTAL 0.2 MG/DL (0.1-1.0); BLOOD UREA NITROGEN 19 MG/DL (7-18); BUN/CREATININE RATIO 19.8 (10.0-20.0); CALCIUM 9.3 MG/DL (8.5-10.1); CHLORIDE 96 MMOL/L (99-107); CREATININE 0.96 MG/DL (0.60-1.10); GLUCOSE 199 MG/DL (70-104); POTASSIUM 3.3 MMOL/L (3.5-5.1); SODIUM 136 MMOL/L (135-145); TOTAL CARBON DIOXIDE 34.5 MMOL/L (24-32); TOTAL PROTEIN 7.6 G/DL (6.4-8.2); eCRCL 82 ML/MIN; eGFR 83 ML/MIN
[2022-10-28 22:00] LABS: PRO BRAIN NATRIURETIC PEPTIDE 41 PG/ML (0-125)
[2022-10-29 07:58] LABS: CHOL/HDL RATIO 5.7 (0.00-4.99); CHOLESTEROL 250 MG/DL (0-200); HDL CHOLESTEROL 44 MG/DL (35-60); LDL CHOLESTEROL 148 MG/DL (50-100); TRIGLYCERIDES 325 MG/DL (20-135)
[2022-10-29 08:04] LABS: HEMOGLOBIN A1C 7.6 % (4.5-6.2)
[2022-10-29 08:05] LABS: CARBAMAZEPINE (TEGRETOL) 9.2 UG/ML (4.0-12.0)
[2022-10-29] MEDS ORDERED: magnesium oxide 400mg tablet PO ONE (08:25)
[2022-10-29] MEDS ORDERED: potassium Cl 20 mEq SR tablet PO ONE (08:25)
[2022-10-29 09:07] VITALS: BP 150/101; PULSE 95; RESP 24; TEMP 98.2; O2SAT 89
== END 2022-10-29 09:13 | disposition home or self-care (01) ==
LOC: ER 21:15
DX: R56.9 Unspecified convulsions (principal); R42 Dizziness and giddiness; R06.02 Shortness of breath; E78.00 Pure hypercholesterolemia, unspecified; I10 Essential (primary) hypertension; J44.9 Chronic obstructive pulmonary disease, unspecified; M19.90 Unspecified osteoarthritis, unspecified site; Z79.899 Other long term (current) drug therapy; Z88.8 Allergy status to other drugs, medicaments and biological substances; Z91.018 Allergy to other foods; Z91.013 Allergy to seafood; Z91.030 Bee allergy status
CPT/HCPCS: 36415; 80053; 80061; 80156; 82948; 83036; 83880; 84484; 85025; 93005; 99284; 99285

== ENCOUNTER 2022-12-30 10:10 | Emergency (ER) | payer MEDICAID ==
[~2022-12-30] VITALS: Ht 172.7 cm; Wt 139.2 kg
[2022-12-30 12:43] LABS: BASOPHILS # (AUTO) 0.1 X10'3 (0-0.2); BASOPHILS % (AUTO) 0.8 % (0-1); EOSINOPHILS # (AUTO) 0.2 X10'3 (0-0.9); EOSINOPHILS % (AUTO) 2.4 % (0-6); HEMATOCRIT 43.2 % (42.0-52.0); HEMOGLOBIN 14.9 g/dl (14.0-17.9); LYMPHOCYTES # (AUTO) 2.3 X10'3 (1.1-4.8); LYMPHOCYTES % (AUTO) 26.6 % (21-51); MEAN CORPUSCULAR HEMOGLOBIN 34.8 PG (27.0-31.0); MEAN CORPUSCULAR HGB CONC 34.6 g/dL (33.0-36.5); MEAN CORPUSCULAR VOLUME 100.8 FL (78-98); MEAN PLATELET VOLUME 7.6 FL (7.4-10.4); MONOCYTES # (AUTO) 0.8 X10'3 (0-0.9); MONOCYTES % (AUTO) 9.6 % (2-12); NEUTROPHILS # (AUTO) 5.2 X10'3 (1.8-7.7); NEUTROPHILS % (AUTO) 60.6 % (42-75); PLATELET COUNT 219 X10'3 (140-440); RED BLOOD COUNT 4.29 X10'6 (4.70-6.10); RED CELL DISTRIBUTION WIDTH 13.8 % (11.5-14.5); WHITE BLOOD COUNT 8.5 X10'3 (4.5-11.0)
[2022-12-30 13:07] LABS: ALANINE AMINOTRANSFERASE 26 U/L (12-78); ALBUMIN 3.1 G/DL (3.4-5.0); ALBUMIN/GLOBULIN RATIO 0.8 (1.1-1.5); ALKALINE PHOSPHATASE 157 IU/L (46-116); ANION GAP 4 (8-16); ASPARTATE AMINO TRANSFERASE 11 U/L (10-37); BILIRUBIN,TOTAL 0.2 MG/DL (0.1-1.0); BLOOD UREA NITROGEN 19 MG/DL (7-18); BUN/CREATININE RATIO 23.2 (10.0-20.0); CALCIUM 8.8 MG/DL (8.5-10.1); CHLORIDE 101 MMOL/L (99-107); CREATININE 0.82 MG/DL (0.60-1.10); GLUCOSE 108 MG/DL (70-104); SODIUM 139 MMOL/L (135-145); TOTAL CARBON DIOXIDE 34.5 MMOL/L (24-32); eCRCL 103 ML/MIN; eGFR > 90 ML/MIN
[2022-12-30] MEDS ORDERED: DOXYCYCLINE 100MG CAPSULE PO STA (13:45)
[2022-12-30] MEDS ORDERED: DOXY100C97 PO (13:45)
[2022-12-30 14:05] VITALS: BP 126/87; PULSE 84; RESP 18; TEMP 97.9; O2SAT 92
--- NOTE | 2022-12-30 14:59 | NUR ---
I AGREE WITH THE ASSESSMENT PER Robert BURGESS LVN.
[2022-12-30 16:13] LABS: PRO BRAIN NATRIURETIC PEPTIDE 72 PG/ML (0-125)
== END 2022-12-30 14:11 | disposition home or self-care (01) ==
LOC: ER 10:11
DX: L03.115 Cellulitis of right lower limb (principal); E78.00 Pure hypercholesterolemia, unspecified; I10 Essential (primary) hypertension; J44.9 Chronic obstructive pulmonary disease, unspecified; K21.9 Gastro-esophageal reflux disease without esophagitis; F31.9 Bipolar disorder, unspecified; M19.90 Unspecified osteoarthritis, unspecified site; Z98.890 Other specified postprocedural states; Z91.013 Allergy to seafood; Z91.018 Allergy to other foods; Z91.030 Bee allergy status; Z88.5 Allergy status to narcotic agent; Z79.899 Other long term (current) drug therapy; Z79.84 Long term (current) use of oral hypoglycemic drugs
CPT/HCPCS: 36415; 71045; 80053; 83605; 83880; 84145; 85025; 93971; 99284; 99285

== ENCOUNTER 2023-03-31 20:35 | Emergency (ER) | payer MEDICAID | END 2023-03-31 22:29 | disposition left against medical advice (07) | LOC: ER 20:36 | DX: R06.02 Shortness of breath (principal); Z53.21 Procedure and treatment not carried out due to patient leaving prior to being seen by health care provider ==

== ENCOUNTER 2023-10-10 01:14 | Emergency (ER) | payer MEDICAID ==
[~2023-10-10] VITALS: Ht 177.8 cm; Wt 126.0 kg
[2023-10-10 01:55] LABS: BASOPHILS # (AUTO) 0.1 X10'3 (0-0.2); BASOPHILS % (AUTO) 0.5 % (0-1); EOSINOPHILS # (AUTO) 0.4 X10'3 (0-0.9); EOSINOPHILS % (AUTO) 3.1 % (0-6); HEMATOCRIT 40.5 % (42.0-52.0); HEMOGLOBIN 13.9 g/dl (14.0-17.9); LYMPHOCYTES # (AUTO) 2.4 X10'3 (1.1-4.8); LYMPHOCYTES % (AUTO) 20.4 % (21-51); MEAN CORPUSCULAR HEMOGLOBIN 34.6 PG (27.0-31.0); MEAN CORPUSCULAR HGB CONC 34.3 g/dL (33.0-36.5); MEAN CORPUSCULAR VOLUME 100.7 FL (78-98); MEAN PLATELET VOLUME 7.8 FL (7.4-10.4); MONOCYTES % (AUTO) 8.1 % (2-12); NEUTROPHILS # (AUTO) 8.1 X10'3 (1.8-7.7); NEUTROPHILS % (AUTO) 67.9 % (42-75); PLATELET COUNT 291 X10'3 (140-440); RED BLOOD COUNT 4.02 X10'6 (4.70-6.10); RED CELL DISTRIBUTION WIDTH 13.8 % (11.5-14.5); WHITE BLOOD COUNT 11.9 X10'3 (4.5-11.0)
[2023-10-10 02:11] LABS: ALANINE AMINOTRANSFERASE 22 U/L (12-78); ALBUMIN 3.1 G/DL (3.4-5.0); ALBUMIN/GLOBULIN RATIO 0.8 (1.1-1.5); ALKALINE PHOSPHATASE 175 IU/L (46-116); ANION GAP 9 (8-16); ASPARTATE AMINO TRANSFERASE 11 U/L (10-37); BILIRUBIN,TOTAL 0.2 MG/DL (0.1-1.0); BLOOD UREA NITROGEN 11 MG/DL (7-18); BUN/CREATININE RATIO 12.4 (10.0-20.0); CALCIUM 9.2 MG/DL (8.5-10.1); CHLORIDE 100 MMOL/L (99-107); CREATININE 0.89 MG/DL (0.60-1.10); GLUCOSE 124 MG/DL (70-104); POTASSIUM 3.4 MMOL/L (3.5-5.1); SODIUM 139 MMOL/L (135-145); TOTAL CARBON DIOXIDE 29.9 MMOL/L (24-32); TOTAL PROTEIN 6.9 G/DL (6.4-8.2); eCRCL 100 ML/MIN; eGFR 90 ML/MIN
[2023-10-10 02:19] LABS: PRO BRAIN NATRIURETIC PEPTIDE 136 PG/ML (0-125)
[2023-10-10] MEDS: azithromycin 250mg tablet PO ONE (04:04)
[2023-10-10 04:07] VITALS: PULSE 96; RESP 16; O2SAT 93
[2023-10-10] MEDS: ipratropium/albuterol 3ml nebule NEB ONE (04:07)
[2023-10-10] MEDS ORDERED: PRED50TA PO (04:10)
[2023-10-10] MEDS ORDERED: AZIT250T27 PO (04:10)
[2023-10-10 04:16] VITALS: BP 90/62; TEMP 98.6; O2SAT 93
[2023-10-10 04:17] VITALS: PULSE 99; RESP 16
== END 2023-10-10 04:18 | disposition home or self-care (01) ==
LOC: ER 01:15
DX: J44.9 Chronic obstructive pulmonary disease, unspecified (principal); Z20.822 Contact with and (suspected) exposure to COVID-19; J20.9 Acute bronchitis, unspecified; E78.00 Pure hypercholesterolemia, unspecified; I10 Essential (primary) hypertension; K21.9 Gastro-esophageal reflux disease without esophagitis; M19.90 Unspecified osteoarthritis, unspecified site; F32.A Depression, unspecified; Z91.013 Allergy to seafood; Z91.018 Allergy to other foods; Z91.030 Bee allergy status; Z79.899 Other long term (current) drug therapy; Z79.2 Long term (current) use of antibiotics
CPT/HCPCS: 36415; 71045; 80053; 83880; 84484; 85025; 87811; 93005; 94640; 94760; 99285

== ENCOUNTER 2024-06-28 17:59 | Emergency (ER) | payer MEDICAID ==
[~2024-06-28] VITALS: Ht 167.6 cm; Wt 110.7 kg
[~2024-06-28 17:59] MED LIST changes: +LEVE100023 PO; -LEVE10006 PO; +PRED50TA PO
[2024-06-28 19:21] LABS: EOSINOPHILS # (AUTO) 0.3 X10'3 (0-0.9); EOSINOPHILS % (AUTO) 2.4 % (0-6); HEMATOCRIT 38.9 % (42.0-52.0); LYMPHOCYTES # (AUTO) 3.1 X10'3 (1.1-4.8); MONOCYTES # (AUTO) 0.9 X10'3 (0-0.9); NEUTROPHILS # (AUTO) 6.5 X10'3 (1.8-7.7); WHITE BLOOD COUNT 10.8 X10'3 (4.5-11.0)
[2024-06-28 19:22] LABS: BASOPHILS # (AUTO) 0.1 X10'3 (0-0.2); BASOPHILS % (AUTO) 0.6 % (0-1); HEMOGLOBIN 13.4 g/dl (14.0-17.9); LYMPHOCYTES % (AUTO) 28.9 % (21-51); MEAN CORPUSCULAR HEMOGLOBIN 34.1 PG (27.0-31.0); MEAN CORPUSCULAR HGB CONC 34.5 g/dL (33.0-36.5); MEAN CORPUSCULAR VOLUME 98.8 FL (78-98); MEAN PLATELET VOLUME 8.1 FL (7.4-10.4); MONOCYTES % (AUTO) 8.3 % (2-12); NEUTROPHILS % (AUTO) 59.8 % (42-75); PLATELET COUNT 282 X10'3 (140-440); RED BLOOD COUNT 3.94 X10'6 (4.70-6.10); RED CELL DISTRIBUTION WIDTH 13.4 % (11.5-14.5)
[2024-06-28 20:14] LABS: BILIRUBIN,URINE NEGATIVE (Neg); CLARITY,URINE CLEAR (Clear); COLOR,URINE YELLOW (Yellow); GLUCOSE, URINE NEGATIVE (Neg); KETONES,URINE NEGATIVE (Neg); LEUKOCYTE ESTERASE ,URINE NEGATIVE (Neg); NITRITES, URINE NEGATIVE (Neg); OCCULT BLOOD,URINE NEGATIVE (Neg); PH,URINE 6.5 (4.8-8.0); PROTEIN,URINE NEGATIVE (Neg); UROBILINOGEN,URINE 0.2 E.U/dL (0.2-1.0)
[2024-06-28 20:19] LABS: UA COLLECTION TYPE URINAL
[2024-06-28 20:27] LABS: URINE AMPHETAMINE SCREEN NEGATIVE (Neg); URINE BARBITUATE SCREEN NEGATIVE (Neg); URINE BENZODIAZEPINES SCREEN NEGATIVE (Neg); URINE CANNABINOID SCREEN NEGATIVE (Neg); URINE COCAINE SCREEN NEGATIVE (Neg); URINE METHADONE SCREEN NEGATIVE (Neg); URINE OPIATE SCREEN NEGATIVE (Neg); URINE PHENCYCLIDINE SCREEN NEGATIVE (Neg)
[2024-06-28 20:27] LABS: ALANINE AMINOTRANSFERASE 19 U/L (12-78); ALBUMIN 3.2 G/DL (3.4-5.0); ALBUMIN/GLOBULIN RATIO 1.1 (1.1-1.5); ALKALINE PHOSPHATASE 154 IU/L (46-116); ANION GAP 10 (8-16); ASPARTATE AMINO TRANSFERASE 12 U/L (10-37); BILIRUBIN,TOTAL 0.1 MG/DL (0.1-1.0); BLOOD UREA NITROGEN 24 MG/DL (7-18); BUN/CREATININE RATIO 29.6 (10.0-20.0); CALCIUM 8.4 MG/DL (8.5-10.1); CHLORIDE 106 MMOL/L (99-107); CREATININE 0.81 MG/DL (0.60-1.10); GLUCOSE 119 MG/DL (70-104); MAGNESIUM 2.2 MG/DL (1.5-2.4); POTASSIUM 3.5 MMOL/L (3.5-5.1); SODIUM 142 MMOL/L (135-145); TOTAL CARBON DIOXIDE 26.1 MMOL/L (24-32); TOTAL PROTEIN 6.2 G/DL (6.4-8.2); eCRCL 95 ML/MIN; eGFR > 90 ML/MIN
[2024-06-28 20:30] LABS: ETHANOL < 10 MG/DL (<10)
--- NOTE | 2024-06-28 21:05 | Physician Documentation ---
History of Present Illness ~ Chief Complaint: Seizure Stated Complaint: SEIZURE Time Seen by MD: 20:31 Primary Medical Doctor: JUSTIN Mode of Arrival: EMS HPI This is a 54-year-old developmentally disabled the gentleman who lives in a usp brought in for evaluation of a seizure. Witnessed generalized tonic- clonic seizure. History of seizures, compliant with his medications. Denies any fever, chills, dehydration, denies any urinary tract infection symptoms. No sinus symptoms of difficulty breathing. Denies chest pain or abdominal pain. No concern for tobacco, alcohol or illicit substances use. Medication Reconciliation Allergies: Coded Allergies: Fish Containing Products (Verified Allergy, Unknown, 10/10/23) banana (Verified Allergy, Unknown, 10/10/23) bee venom protein (honey bee) (Verified Allergy, Unknown, 10/10/23) andrea (Verified Allergy, Unknown, 10/10/23) codeine (Verified Allergy, Unknown, 10/10/23) cranberry (Verified Allergy, Unknown, 10/29/22) kranthi (Verified Allergy, Unknown, 10/10/23) mushroom (Verified Allergy, Unknown, 10/10/23) onion (Verified Allergy, Unknown, 10/10/23) pepper (genus Capsicum) (Verified Allergy, Unknown, 10/10/23) phenytoin (Verified Allergy, Unknown, 10/10/23) pineapple (Verified Allergy, Unknown, 10/10/23) squash (Verified Allergy, Unknown, 10/10/23) strawberry (Verified Allergy, Unknown, 10/10/23) Uncoded Allergies: ALL BERRIES (Allergy, Unknown, 09/18/22) ALL MELONS (Allergy, Unknown, 09/18/22) PEPPER (Allergy, Unknown, 08/31/21) Scheduled Alprazolam (Xanax), 1 TAB PO Q12H PRN Amoxicillin/Potassium Clav (Augmentin 500-125 Tablet), 1 TAB PO BID@0830,1730 Carbamazepine (Tegretol), 1 TAB PO Q6H, (Reported) Famotidine (Famotidine), 1 TAB PO DAILY, (Reported) Fluticasone/Salmeterol* (Advair 500-50 Diskus*), 2 PUFFS PO DAILY, (Reported) Hydrochlorothiazide (Hydrochlorothiazide), 1 TAB PO BID, (Reported) Levetiracetam (Levetiracetam), 1 TAB PO DAILY, (Reported) Loratadine (Loratadine), 1 TAB PO DAILY, (Reported) Metformin HCl (Metformin HCl), 2 TAB PO BID Pantoprazole Sodium (PROTONIX tablet), 1 TAB PO DAILY, (Reported) Prednisone (Prednisone), 1 TAB PO DAILY Scheduled PRN Albuterol Sulfate Nebs* (Proventil Nebs*), 2.5 MG IH Q4H PRN for SOB or wheezing, (Reported) Ibuprofen (Ibuprofen), 1 TAB PO TID PRN for pain, (Reported) Ipratropium/Albuterol Sulfate (IPRAT-ALBUT 0.5-3(2.5) MG/3 ML nebule), 3 ML NEB Q6H PRN for SOB or wheezing Past Medical History Past Medical History: *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*, Seizures, High Cholesterol, Hypertension, Asthma, COPD, GERD, Arthritis, *PSYCH*, Bipolar, Depression Past Surgical History: other Other Past Surgical History: Skull implant Patient History: FH: alcohol abuse FATHER, , Cause: Cancer FH: cancer FATHER, , Cause: Cancer FH: kidney failure FH: myocardial infarction FATHER, , Cause: Cancer FH: stroke FHx: diabetes mellitus FATHER, , Cause: Cancer MOTHER, , Cause: Stroke Drug Use: none Lives with: Other Lives In: Assisted Care Occupation: disabled Review of Systems ROS 10 point review of systems was performed and unless noted above in HPI is negative for acute process/complaint. Physical Exam Vital Signs: Temperature: 98.6, Heart Rate: 90, Respiratory Rate: 19, BP: 107/82, Pulse Oximetry: 96, Weight: 110.700 Physical Exam GENERAL: Awake, alert, oriented, GCS 15, no apparent distress, non-toxic appearing, answers questions, follows commands appropriately. HEENT: Atraumatic, normocephalic, pupils equal, extraocular muscles intact, sclerae anicteric, mucus membranes moist, oropharynx is clear, no stridor. NECK: supple, full active range of motion, trachea midline, no thyromegaly, no lymphadenopathy, no JVD. CARDIOVASCULAR: regular rate/rhythm, no murmurs/gallops/rubs, Pulses are 2+ in all extremities and symmetric. Capillary refill less than 2 seconds. PULMONARY: Nonlabored, good air movement ,no respiratory distress, speaking in full sentences, clear to auscultation bilaterally, no wheezing, no ronchi, no rales, no accessory muscle use. GASTROINTESTINAL: Soft, non-tender, non-distended, normal active bowel sounds, no organomegaly, no pulsatile masses, no CVA tenderness. NEUROLOGIC: Lucid with baseline mental status. Normal facial symmetry. Moves all extremities symmetrically and with purpose. No truncal ataxia. Speech is fluid without evidence of dysarthria or aphasia, no focal deficits appreciated. MUSCULOSKELETAL: There is full range of motion of all extremities. There is no joint pain or joint swelling or joint erythema. There is no muscle pain or tenderness or swelling. EXTREMITIES: warm, well-perfused, no cyanosis, no clubbing, no edema, no acute deformities. Skin: warm, dry, no rashes or lesions, no jaundice, no petechiae orpurpura. No ecchymosis. PSYCHIATRIC: Baseline affect, baseline insight, normal concentration. Focused exam: [] Progress Results/Orders Results/Orders Orders - ESTELLE PARK DO MG (06/28/24 18:25) CMP (06/28/24 18:25) Topiramate (06/28/24 18:25) Levetiracetam, S (06/28/24 18:25) Tegretol(Carbamazepine) (06/28/24 18:25) Ethanol (06/28/24 18:25) Completed Orders - ESTELLE PARK DO Cbc/Diff (06/28/24 18:25) Urinalysis, Cult If Indicated (06/28/24 18:25) Hs Troponin I W Calculations (06/28/24 18:25) Drug Screen, Urine (06/28/24 18:25) Vital Signs 06/28/24 06/28/24 18:01 20:50 Temp 98.6 Pulse 90 Resp 20 19 B/P (MAP) 107/82 Pulse Ox 96 Laboratory Tests Test 06/28/24 18:48 06/28/24 19:10 White Blood Count 10.8 Red Blood Count 3.94 L Hemoglobin 13.4 L Hematocrit 38.9 L Mean Corpuscular Volume 98.8 H Mean Corpuscular Hemoglobin 34.1 H Mean Corpuscular Hemoglobin Concent 34.5 Red Cell Distribution Width 13.4 Platelet Count 282 Mean Platelet Volume 8.1 Neutrophils (%) (Auto) 59.8 Lymphocytes (%) (Auto) 28.9 Monocytes (%) (Auto) 8.3 Eosinophils (%) (Auto) 2.4 Basophils (%) (Auto) 0.6 Neutrophils # (Auto) 6.5 Lymphocytes # (Auto) 3.1 Monocytes # (Auto) 0.9 Eosinophils # (Auto) 0.3 Basophils # (Auto) 0.1 CBC Comment Sodium Level 142 Potassium Level 3.5 Chloride Level 106 Carbon Dioxide Level 26.1 Anion Gap 10 Blood Urea Nitrogen 24 H Creatinine 0.81 Estimated GFR/1.73 m2 > 90 BUN/Creatinine Ratio 29.6 H Glucose Level 119 H Calcium Level 8.4 L Magnesium Level 2.2 Total Bilirubin 0.1 Aspartate Amino Transf (AST/SGOT) 12 Alanine Aminotransferase (ALT/SGPT) 19 Alkaline Phosphatase 154 H Troponin I High Sensitivity 12 Total Protein 6.2 L Albumin 3.2 L Globulin 3.0 Albumin/Globulin Ratio 1.1 Chemistry Comments Ethyl Alcohol Level < 10 Urine Specimen Description Urinal Urine Color Yellow Urine Clarity Clear Urine pH 6.5 Urine Specific [place] 1.020 Urine Protein Negative Urine Glucose (UA) Negative Urine Ketones Negative Urine Occult Blood Negative Urine Nitrite Negative Urine Bilirubin Negative Urine Urobilinogen 0.2 Urine Leukocyte Esterase Negative Urine Culture Indicated Not ind Volume Urine Centrifuged 10 ml Urine Comment Urine Opiates Screen Negative Urine Methadone Screen Negative Urine Fentanyl Screen Negative Urine Barbiturates Screen Negative Urine Phencyclidine Screen Negative Urine Amphetamines Screen Negative Urine Benzodiazepines Screen Negative Urine Cocaine Screen Negative Urine Cannabinoids Screen Negative Drug Screen Comment Medical Decision Making Findings Facility Status: ED Holds, [facility] process The plan was discussed with the patient, who demonstrates clear understanding of the plan and is in agreement with the plan unless otherwise noted in the chart. All questions have been answered, all concerns were addressed unless otherwise documented. I was available throughout their ED stay for frequent reassessment and questions. Differential Diagnoses (considered and possible or likely): [Breakthrough seizure, dehydration, urinary tract infection, pneumonia highly unlikely given clear lungs to auscultation and lack of cough of shortness a breath, occult bacteremia, electrolyte derangement, unlikely alcohol withdrawal, alcohol intoxication, drug toxidrome.] ??Differential Diagnoses (considered and unlikely, not requiring evaluation currently): [No evidence of traumatic injury.] MDM Data Please see HPI for the following: Independent Historians and external Records Review. Historian: [Patient] Independent Historians: ?[Record review] Medication Management: [Reviewed medication list] Social History and determinants: [Reviewed] Please see the body of the note for the following: Any independent inter pretations of ECG, imaging studies. All vitals signs/haemodynamics, ordered tests were independently reviewed and interpreted by myself. Nursing triage complaint and vitals reviewed, additional nursing notes were reviewed as available and I agree unless otherwise noted or documented in contradiction in the chart Vital Signs: Independently reviewed Labs: Independently interpreted Imaging: Independently interpreted Old Medical Records: Independently reviewed, see HPI for relevant summary and information Pulse Oximetry: [95%] interpreted as [normal on room air] by me Additionally notably showing: [Hemodynamically stable. Unremarkable workup except for dehydration.] Tests considered but not ordered include: [Imaging does not appear to be necessary given known history of seizures] Social Determinants of Health Impact: Patient was evaluated in [facility] [place] to healthcare due to below par ratio of patient to medical providers. [] Comorbid Conditions Impacting Present Evaluation and Care/Treatment: [Seizures] Management Discussions with other Healthcare Providers: [None] Treatment and Disposition Medication Management (Given or considered): []. See EMR for details Consideration for Hospitalization/Escalation/Deescalation of Care: Admission for observation has been considered, [however the patient is able to tolerate p.o., their symptoms are controlled, they are able to rely on oral medications, and their chief complaint/diagnosis can be managed on outpatient basis.] ?ED Course:?[No recurrence of seizure.] Dehydration is most likely culprit. ?Shared decision making:?[Patient is hemodynamically stable for discharge home with follow with their primary care provider. [ ] Specific and cautious return precautions provided and discussed with full understanding. Any incidental findings were also discussed and follow up recommendations given. [] All questions answered. Patient/family were able to verbalize back return precautions. Patient/family agree to plan. Copies of imaging and laboratory studies were provided.] Code status:?FULL Please see the full Electronic Medical Record for full details of nursing documentation, medications list, other records of complete past medical history and conditions, vital signs, laboratory studies, and any radiologic study interpretations by radiologists. Portions of this note were completed using [employer] dictation software and as a result there may exist minor errors in spelling. I have reviewed elements of past family and social history and agree as included in note. Departure Disposition: 01 HOME / SELF CARE / HOMELESS Impression: Primary Impression: Breakthrough seizure Additional Impression: Dehydration Discharge Instructions: Epilepsy Additional Instructions: You need to make sure to hydrate adequately, today he had a breakthrough seizure that is most likely related to dehydration. Referrals: NO PRIMARY CARE PROVIDER (PCP) Education Educated: Patient Educated regarding: diagnosis, treatment, prognosis, need for follow up Signature Scribe Signature: No scribe Attestation: This note accurately reflects clinical decisions, work performed by myself, DO XAVIER Aguilera NICHOLAS M DO June 28, 2024 21:05
[2024-06-28 21:09] VITALS: BP 110/76; PULSE 90; RESP 19; TEMP 97.8; O2SAT 93
[2024-06-28 21:14] LABS: CARBAMAZEPINE (TEGRETOL) 6.9 UG/ML (4.0-12.0)
== END 2024-06-28 21:33 | disposition home or self-care (01) ==
LOC: ER 17:59
DX: R56.9 Unspecified convulsions (principal); E86.0 Dehydration; E78.00 Pure hypercholesterolemia, unspecified; I10 Essential (primary) hypertension; J45.909 Unspecified asthma, uncomplicated; J44.9 Chronic obstructive pulmonary disease, unspecified; K21.9 Gastro-esophageal reflux disease without esophagitis; F32.A Depression, unspecified; M19.90 Unspecified osteoarthritis, unspecified site; Z91.018 Allergy to other foods; Z91.030 Bee allergy status; Z88.5 Allergy status to narcotic agent; Z79.899 Other long term (current) drug therapy; Z79.52 Long term (current) use of systemic steroids
CPT/HCPCS: 36415; 80053; 80156; 80177; 80201; 80305; 80320; 81003; 83735; 84484; 85025; 99284

== ENCOUNTER 2024-10-28 18:28 | Emergency (ER) | payer MEDICAID ==
[~2024-10-28] VITALS: Ht 167.6 cm; Wt 114.0 kg
--- NOTE | 2024-10-28 18:37 | ELECTROCARDIOGRAPH REPORT ---
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
[2024-10-28 19:22] LABS: MEAN PLATELET VOLUME 7.4 FL (7.4-10.4); RED CELL DISTRIBUTION WIDTH 13.1 % (11.5-14.5)
[2024-10-28 19:34] LABS: CREATININE 0.76 MG/DL (0.60-1.10); TOTAL CARBON DIOXIDE 22.6 MMOL/L (24-32); eCRCL 101 ML/MIN; eGFR > 90 ML/MIN
[2024-10-28 19:37] LABS: LEUKOCYTE ESTERASE ,URINE NEGATIVE (Neg); NITRITES, URINE NEGATIVE (Neg); OCCULT BLOOD,URINE NEGATIVE (Neg); UA COLLECTION TYPE CLN CATCH MIDSTREAM
--- NOTE | 2024-10-28 19:39 | RADIOLOGY REPORT ---
EXAM: DI CHEST,SINGLE VIEW CLINICAL HISTORY: cp TECHNIQUE: Single AP view of the chest WID: COMPARISON: DI CHEST,SINGLE VIEW on DOS: 10/10/23 FINDINGS: Lines and tubes: Battery pack projects over the left chest wall with vagal stimulator lead projecting cephalad beyond the field of view. Chest: The heart size and pulmonary vasculature is within normal limits. No pleural effusion, pneumothorax, or consolidation. The osseous structures are grossly intact. IMPRESSION: 1. No acute cardiopulmonary abnormality.
[2024-10-28 19:56] LABS: URINE AMPHETAMINE SCREEN NEGATIVE (Neg); URINE BARBITUATE SCREEN NEGATIVE (Neg); URINE BENZODIAZEPINES SCREEN NEGATIVE (Neg); URINE CANNABINOID SCREEN NEGATIVE (Neg); URINE COCAINE SCREEN NEGATIVE (Neg); URINE METHADONE SCREEN NEGATIVE (Neg); URINE OPIATE SCREEN NEGATIVE (Neg); URINE PHENCYCLIDINE SCREEN NEGATIVE (Neg)
--- NOTE | 2024-10-28 20:38 | Physician Documentation ---
History of Present Illness ~ Chief Complaint: Chest Pain Stated Complaint: CHEST PAIN Time Seen by MD: 18:34 Primary Medical Doctor: JUSTIN Mode of Arrival: EMS HPI 54 year old male reports sudden onset of L sided chest pain. Also reports an unwitnessed seizure today, and he has a history of seizure disorder with no changes in medications. Denies N/V/D, fevers, cough, shortness of breath at this time. Medication Reconciliation Allergies: Coded Allergies: Fish Containing Products (Verified Allergy, Unknown, 10/28/24) banana (Verified Allergy, Unknown, 10/28/24) bee venom protein (honey bee) (Verified Allergy, Unknown, 10/28/24) andrea (Verified Allergy, Unknown, 10/28/24) codeine (Verified Allergy, Unknown, 10/28/24) cranberry (Verified Allergy, Unknown, 10/28/24) kranthi (Verified Allergy, Unknown, 10/28/24) mushroom (Verified Allergy, Unknown, 10/28/24) onion (Verified Allergy, Unknown, 10/28/24) pepper (genus Capsicum) (Verified Allergy, Unknown, 10/28/24) phenytoin (Verified Allergy, Unknown, 10/28/24) pineapple (Verified Allergy, Unknown, 10/28/24) squash (Verified Allergy, Unknown, 10/28/24) strawberry (Verified Allergy, Unknown, 10/28/24) Uncoded Allergies: ALL BERRIES (Allergy, Unknown, 09/18/22) ALL MELONS (Allergy, Unknown, 09/18/22) PEPPER (Allergy, Unknown, 08/31/21) Scheduled Alprazolam (Xanax), 1 TAB PO Q12H PRN Amoxicillin/Potassium Clav (Augmentin 500-125 Tablet), 1 TAB PO BID@0830,1730 Carbamazepine (Tegretol), 1 TAB PO Q6H, (Reported) Famotidine (Famotidine), 1 TAB PO DAILY, (Reported) Fluticasone/Salmeterol* (Advair 500-50 Diskus*), 2 PUFFS PO DAILY, (Reported) Hydrochlorothiazide (Hydrochlorothiazide), 1 TAB PO BID, (Reported) Levetiracetam (Levetiracetam), 1 TAB PO DAILY, (Reported) Loratadine (Loratadine), 1 TAB PO DAILY, (Reported) Metformin HCl (Metformin HCl), 2 TAB PO BID Pantoprazole Sodium (PROTONIX tablet), 1 TAB PO DAILY, (Reported) Prednisone (Prednisone), 1 TAB PO DAILY Scheduled PRN Albuterol Sulfate Nebs* (Proventil Nebs*), 2.5 MG IH Q4H PRN for SOB or wheezing, (Reported) Ibuprofen (Ibuprofen), 1 TAB PO TID PRN for pain, (Reported) Ipratropium/Albuterol Sulfate (IPRAT-ALBUT 0.5-3(2.5) MG/3 ML nebule), 3 ML NEB Q6H PRN for SOB or wheezing Past Medical History 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*, Seizures, High Cholesterol, Hypertension, Asthma, COPD, GERD, Arthritis, *PSYCH*, Bipolar, Depression Past Surgical History: other Other Past Surgical History: Skull implant Patient History: FH: alcohol abuse FATHER, , Cause: Cancer FH: cancer FATHER, , Cause: Cancer FH: kidney failure FH: myocardial infarction FATHER, , Cause: Cancer FH: stroke FHx: diabetes mellitus FATHER, , Cause: Cancer MOTHER, , Cause: Stroke Smoking Status: Current every day smoker Drug Use: none Lives with: Other Lives In: Assisted Care Occupation: disabled Review of Systems All Other Systems at this time: Reviewed and Negative Physical Exam Vital Signs: RN Vital Signs have been reviewed: Yes, Heart Rate: 90, Respiratory Rate: 18, BP: 138/80, Pulse Oximetry: 94, Weight: 114.000 Physical Exam HEENT: PERRL, moist oral mucosa, EOMI Pulmonary: No respiratory distress CTAB Cardiac: RRR, no murmur, rub or gallop MSK: no deformity Skin: w/d/i, no rash Neuro: alert, nonfocal Psych: normal affect Progress Results/Orders Results/Orders Orders - THEODORE SANTAMARIA MD Chest,Single View (10/28/24 18:34) Completed Orders - THEODORE SANTAMARIA MD Cbc/Diff (10/28/24 18:34) CMP (10/28/24 18:34) Drug Screen, Urine (10/28/24 18:34) Urinalysis, Cult If Indicated (10/28/24 18:34) Lipase (10/28/24 18:34) Hs Troponin I W Calculations (10/28/24 18:34) Stat Ekg (10/28/24 18:34) Chest,Single View (10/28/24 18:34) Vital Signs 10/28/24 10/28/24 18:34 18:51 Pulse 90 Resp 18 18 B/P (MAP) 138/80 Pulse Ox 94 Laboratory Tests Test 10/28/24 19:04 10/28/24 19:20 White Blood Count 11.4 H Red Blood Count 4.27 L Hemoglobin 14.7 Hematocrit 43.0 Mean Corpuscular Volume 100.7 H Mean Corpuscular Hemoglobin 34.3 H Mean Corpuscular Hemoglobin Concent 34.1 Red Cell Distribution Width 13.1 Platelet Count 266 Mean Platelet Volume 7.4 Neutrophils (%) (Auto) 60.5 Lymphocytes (%) (Auto) 23.6 Monocytes (%) (Auto) 8.2 Eosinophils (%) (Auto) 7.4 H Basophils (%) (Auto) 0.3 Neutrophils # (Auto) 6.9 Lymphocytes # (Auto) 2.7 Monocytes # (Auto) 0.9 Eosinophils # (Auto) 0.8 Basophils # (Auto) 0.0 CBC Comment Sodium Level 137 Potassium Level 3.9 Chloride Level 105 Carbon Dioxide Level 22.6 L Anion Gap 9 Blood Urea Nitrogen 17 Creatinine 0.76 Estimated GFR/1.73 m2 > 90 BUN/Creatinine Ratio 22.4 H Glucose Level 109 H Calcium Level 8.7 Total Bilirubin 0.2 Aspartate Amino Transf (AST/SGOT) 15 Alanine Aminotransferase (ALT/SGPT) 23 Alkaline Phosphatase 138 H Troponin I High Sensitivity 9 Total Protein 6.8 Albumin 3.6 Globulin 3.2 Albumin/Globulin Ratio 1.1 Lipase 40 Chemistry Comments Urine Specimen Description Cln catch midstream Urine Color Yellow Urine Clarity Clear Urine pH 7.0 Urine Specific [place] 1.010 Urine Protein Negative Urine Glucose (UA) Negative Urine Ketones Negative Urine Occult Blood Negative Urine Nitrite Negative Urine Bilirubin Negative Urine Urobilinogen 1.0 Urine Leukocyte Esterase Negative Urine Culture Indicated Not ind Volume Urine Centrifuged 10 ml Urine Comment Urine Opiates Screen Negative Urine Methadone Screen Negative Urine Fentanyl Screen Negative Urine Barbiturates Screen Negative Urine Phencyclidine Screen Negative Urine Amphetamines Screen Negative Urine Benzodiazepines Screen Negative Urine Cocaine Screen Negative Urine Cannabinoids Screen Negative Drug Screen Comment Medical Decision Making Findings 54 year old male with chest pain as above but stable vitals and unremarkable exam. CXR interpreted by me demonstrated normal contours, no PTX, no PNA, no acute. EKG interpreted by me demonstrated NSR at 87/min with no STEMI criteria and no dysrhythmia. Patient improved on reevaluation, well-appearing, will discharge with return precautions. Differential Dx:Considerations: Include: angina, chest wall pain, myocardial infarction, pericarditis, pneumonia, pneumothorax, pulmonary embolus Departure Disposition: HOME / SELF CARE / HOMELESS Impression: Primary Impression: Chest pain Condition: Stable Discharge Instructions: Nonspecific Chest Pain, Adult Referrals: NO PRIMARY CARE PROVIDER (PCP) Education Educated: Patient Educated regarding: diagnosis, treatment, prognosis, need for follow up Signature Scribe Signature: . Attestation: . THEODORE SANTAMARIA MD Oct 28, 2024 20:38
[2024-10-28 21:06] VITALS: BP 132/78; PULSE 86; RESP 16; O2SAT 95
== END 2024-10-28 21:09 | disposition home or self-care (01) ==
LOC: ER 18:29
DX: R07.89 Other chest pain (principal); E78.00 Pure hypercholesterolemia, unspecified; F17.200 Nicotine dependence, unspecified, uncomplicated; F31.9 Bipolar disorder, unspecified; G40.909 Epilepsy, unspecified, not intractable, without status epilepticus; I10 Essential (primary) hypertension; M19.90 Unspecified osteoarthritis, unspecified site; J44.9 Chronic obstructive pulmonary disease, unspecified; K21.9 Gastro-esophageal reflux disease without esophagitis; Z91.030 Bee allergy status; Z88.5 Allergy status to narcotic agent; Z91.013 Allergy to seafood; Z91.018 Allergy to other foods; Z88.8 Allergy status to other drugs, medicaments and biological substances; Z79.899 Other long term (current) drug therapy
CPT/HCPCS: 36415; 71045; 80053; 80305; 81003; 83690; 84484; 85025; 93005; 99285